=== PATIENT | female | born 1955 | race Caucasian/White ===

== ENCOUNTER 2019-08-09 14:19 | Emergency (ER) | payer SELFPAY ==
--- NOTE | 2019-08-09 14:24 | ED.FEMALEGU ---
HPI - Female Genitourinary General Chief complaint: Urogenital-Female Stated complaint: bladder infection Time Seen by Provider: 08/09/19 14:36 Source: patient and RN notes reviewed Mode of arrival: ambulatory Limitations: no limitations History of Present Illness HPI Narrative: 64-year-old female presents with concern for dysuria, frequency, urgency, stress incontinence for approximately 1 week, reports bilateral low back ache started yesterday. She denies fever, malaise, abdominal pain, hematuria, abnormal vaginal discharge or bleeding. She reports history of urinary tract infections. MD elicited complaint: UTI Related Data Home Medications Medication Instructions Recorded Confirmed diltiazem HCl [DILT-XR] 180 mg PO DAILY 06/04/19 08/09/19 furosemide 40 mg PO DAILY 06/04/19 08/09/19 metoprolol tartrate 50 mg PO Q12H 06/04/19 08/09/19 warfarin 2.5 mg PO DAILY 06/04/19 08/09/19 Allergies Allergy/AdvReac Type Severity Reaction Status Date / Time No Known Allergies Allergy Verified 08/09/19 14:32 Review of Systems Review of Systems: Narrative: CONSTITUTIONAL: Denies malaise, chills, sweats, or fever. CARDIOVASCULAR: Denies chest pain, palpitations RESPIRATORY: Denies cough or dyspnea. GASTROINTESTINAL: Denies abdominal pain, nausea, vomiting, diarrhea GENITOURINARY: Reports dysuria, frequency, urgency. Denies abnormal vaginal discharge, abnormal vaginal bleeding, hematuria. MUSCULOSKELETAL: Reports bilateral low backache. Denies myalgia. NEUROLOGIC: Denies numbness, weakness. All systems reviewed & are unremarkable except as noted in HPI and below PMFSH Comments At time of signature, agree with nursing past medical, surgical, social and family history. There is no relevant family history pertinent to the presenting complaint Exam Narrative: Exam Narrative: GENERAL: Well-appearing, well-nourished, and in no acute distress. HEAD: Normocephalic. EYES: PERRLA, conjunctivae clear. NECK: Supple. No lymphadenopathy CHEST: Clear to auscultation. No respiratory distress. HEART: Regular rate and rhythm. No murmur heard. Normal peripheral pulses. ABDOMEN: Soft, nontender upon palpation, nondistended, normal active bowel sounds, no palpable or pulsatile masses, no guarding. No CVA tenderness SKIN: Warm, dry, no rash. NEURO: Alert and oriented x3. PSYCH: Normal mood and affect Course Course Emergency Course: Patient is aware of diagnosis, understands and agrees to treatment plan. Anticipatory guidance given. Patient agrees to follow-up as directed and is aware of reasons to seek care at the emergency department. Portions of this record may have been created with voice recognition software Vital Signs Vital signs: Vital Signs Temperature 98.8 F 08/09/19 14:28 Pulse Rate 76 08/09/19 14:28 Respiratory Rate 18 08/09/19 14:28 Blood Pressure 145/80 H 08/09/19 14:28 Pulse Oximetry 98 08/09/19 14:28 Temperature 98.8 F 08/09/19 14:28 Pulse Rate 76 08/09/19 14:28 Respiratory Rate 18 08/09/19 14:28 Blood Pressure 145/80 H 08/09/19 14:28 Pulse Oximetry 98 08/09/19 14:28 Reviewed. Patient has history of hypertension MDM - Female Genitourinary MDM Narrative Medical decision making narrative: Exam findings and UA show no acute concerns or changes; patient is non-toxic appearing and is in no distress. Patient is appropriate for outpatient treatment and follow-up. Differential Diagnosis Differential diagnosis: Likely urinary tract infection, bacterial vaginosis, vaginitis and cystitis Lab Data Labs: Urine Glucose Negative Reference Range: Negative Urine Bilirubin Negative Reference Range: Negative Urine Ketone Negative Reference Range: Negative Urine Specific Cl[place]son 1.015 Reference Range:1.001-1.035 Urine Blood Trace Reference Range: Negative * *
[2019-08-09 14:28] VITALS: BP 145/80; PULSE 76; RESP 18; TEMP 37.1; O2SAT 98
== END 2019-08-09 14:50 | disposition home or self-care (01) ==
PROVIDERS: Emergency Provider Nurse Practitioner
DX: N39.0 Urinary tract infection, site not specified (principal); I48.91 Unspecified atrial fibrillation
CPT/HCPCS: 81003; 87077; 87086; 87088; 87186; 99213; G0463

== ENCOUNTER 2020-01-15 12:47 | Emergency (ER) | payer MEDICAID, SELFPAY ==
[2020-01-15 13:05] VITALS: BP 144/88; PULSE 72; RESP 16; TEMP 36.7; O2SAT 99
--- NOTE | 2020-01-15 13:13 | ED.GENADULT ---
HPI - General Adult General Chief complaint: Urogenital-Female Stated complaint: UTI Time Seen by Provider: 01/15/20 13:13 Source: patient Mode of arrival: ambulatory Limitations: no limitations History of Present Illness HPI narrative: 64-year-old female patient presents to the [facility] with complaints of burning with urination, urgency and frequency and incontinence for the past 3 days. Denies any fever, low back pain, nausea, vomiting or diarrhea. Related Data Home Medications Medication Instructions Recorded Confirmed diltiazem HCl [DILT-XR] 180 mg PO DAILY 06/04/19 08/09/19 furosemide 40 mg PO DAILY 06/04/19 08/09/19 metoprolol tartrate 50 mg PO Q12H 06/04/19 08/09/19 warfarin 2.5 mg PO DAILY 06/04/19 08/09/19 Allergies Allergy/AdvReac Type Severity Reaction Status Date / Time No Known Allergies Allergy Verified 08/09/19 14:32 Review of Systems Review of Systems: Narrative: CONSTITUTIONAL: Denies fever, chills, or sweats. EYES: Denies visual changes, redness, or discharge. ENT: Denies rhinorrhea, congestion, sore throat, or otalgia. CARDIOVASCULAR: Denies chest pain, palpitations, or edema. RESPIRATORY: Denies cough or dyspnea. GASTROINTESTINAL: Denies abdominal pain, nausea, vomiting, or diarrhea. GENITOURINARY: Denies dysuria or hematuria. Positive pain with urination, urgency and frequency x3 days SKIN: Denies rash or itching. MUSCULOSKELETAL: Denies back pain, joint pain, or myalgia. NEUROLOGIC: Denies headache, numbness, or weakness. PSYCHIATRIC: Denies anxiety or depression. PMFSH Comments At the time of my signature I agree with nursing past medical history, surgical, social, and family history. There is no relevant family history pertinent to the presenting complaint. Exam Narrative: Exam Narrative: GENERAL: Well-appearing, well-nourished, and in no acute distress. HEAD: Normocephalic, atraumatic. EYES: PERRLA and EOMI. ENT: Nares clear, no rhinorrhea or epistaxis. Mucous membranes moist. NECK: Supple. No lymphadenopathy CHEST: Clear to auscultation. No respiratory distress. HEART: Regular rate and rhythm. No murmur heard. Normal peripheral pulses. ABDOMEN: Soft, nontender, nondistended, normal active bowel sounds. No CVA tenderness on percussion EXTREMITIES: Normal range of motion. No edema. SKIN: Warm, dry, no rash. NEURO: No focal deficits. Alert and oriented x3. Course Vital Signs Vital signs: Vital Signs Temperature 36.7 C 01/15/20 13:05 Pulse Rate 72 01/15/20 13:05 Respiratory Rate 16 01/15/20 13:05 Blood Pressure 144/88 H 01/15/20 13:05 Pulse Oximetry 99 01/15/20 13:05 Temperature 36.7 C 01/15/20 13:05 Pulse Rate 72 01/15/20 13:05 Respiratory Rate 16 01/15/20 13:05 Blood Pressure 144/88 H 01/15/20 13:05 Pulse Oximetry 99 01/15/20 13:05 Vital signs reviewed. The patient has been informed that they may have pre-hypertension or Hypertension based on a BP reading in the department. I recommend that the patient call the primary care provider listed on their discharge instructions or a physician of their choice this week to arrange follow up for further evaluation of possible pre-hypertension or Hypertension Medical Decision Making Differential Diagnosis Differential Diagnosis: Differential diagnosis: Uncomplicated lower UTI, uncomplicated UTI, pyelonephritis Discussed with patient that her urine dip really did not show much in regards to any evidence of a urinary tract infection however given her symptoms we will go ahead and start her on some antibiotics and sent her urine off for culture. Discussed with her that if her culture shows that she needs a different antibiotic and we will call her at that time. Patient verbalized understanding denies any other questions or concerns at this time. Vital Signs Vital Signs: Vital Signs Temperature 36.7 C 01/15/20 13:05 Pulse Rate 72 01/15/20 13:05 Respiratory Rate 16 01/15/20 13:05 Blood Pressur
== END 2020-01-15 13:25 | disposition home or self-care (01) ==
PROVIDERS: Emergency Provider Nurse Practitioner Family
DX: N30.00 Acute cystitis without hematuria (principal)
CPT/HCPCS: 81003; 87077; 87086; 87088; 87186; 99213; G0463

== ENCOUNTER 2020-08-07 13:40 | Emergency (ER) | payer OTHER, MEDICAID, SELFPAY ==
[2020-08-07 13:56] VITALS: BP 154/92; PULSE 107; RESP 20; TEMP 36.5; O2SAT 97
--- NOTE | 2020-08-07 14:31 | ED.FEMALEGU ---
HPI - Female Genitourinary General Chief complaint: Urogenital-Female Stated complaint: Urogenital-Female Time Seen by Provider: 08/07/20 14:32 Source: patient and RN notes reviewed Mode of arrival: ambulatory Limitations: no limitations History of Present Illness HPI Narrative: 65-year-old female who presents to [facility] with complaints of urinary incontinency which started on Friday and last all day. She states that it lasted all day long but stopped at about 5 this morning with her urine remaining cloudy and dark. Patient states that she got her 2nd COVID injection on Friday and then the urinary frequency and urgency started. Patient is concerned because of her history of urinary tract infections. Patient denies any burning or pain with urination, no nausea or vomiting or any abdominal or flank pain. Patient has history of Afib and is on Warfarin for anticoagulation, denies any blood in urine, patient does have some ankle and pretibial swelling of both legs, states that she does not take Lasix. She has appointment with new physician on the with Dr Barbour. Related Data Home Medications Medication Instructions Recorded Confirmed diltiazem HCl [DILT-XR] 180 mg PO DAILY 06/04/19 08/07/20 furosemide 40 mg PO DAILY 06/04/19 08/09/19 metoprolol tartrate 50 mg PO Q12H 06/04/19 08/09/19 warfarin 2.5 mg PO DAILY 06/04/19 08/07/20 Allergies Allergy/AdvReac Type Severity Reaction Status Date / Time No Known Allergies Allergy Verified 08/09/19 14:32 Review of Systems Review of Systems: Narrative: CONSTITUTIONAL: Denies fever, chills, or sweats. EYES: Denies visual changes, redness, or discharge. ENT: Denies rhinorrhea, congestion, sore throat, or otalgia. CARDIOVASCULAR: Denies chest pain, palpitations, or edema. RESPIRATORY: Denies cough or dyspnea. GASTROINTESTINAL: Denies abdominal pain, nausea, vomiting, or diarrhea. GENITOURINARY: Denies dysuria or hematuria.reports urinary incontinency, urinary frequency and urgency SKIN: Denies rash or itching. MUSCULOSKELETAL: Denies back pain, joint pain, or myalgia. NEUROLOGIC: Denies headache, numbness, or weakness. PSYCHIATRIC: Denies anxiety or depression. All systems reviewed & are unremarkable except as noted in HPI and below PMFSH Past Medical History Medical History (Updated 08/12/20 @ 13:20 by Loretta Warren NP) A-fib Asthma reports as child Fracture of right foot Hypertension Toes fractured Urinary tract infection Surgical History Surgical History (Updated 08/12/20 @ 13:12 by Loretta Warren NP) H/O section History of appendectomy History of hysterectomy History of tonsillectomy Hx of left knee surgery Family History Family History (Updated 08/12/20 @ 13:14 by Loretta Warren NP) Other No significant family history Social History Social History (Updated 08/12/20 @ 13:12 by Loretta Warren NP) Smoking status: Unknown if ever smoked Alcohol intake: never Substance use: never Gender identity (if verbalized by the patient): Male Comments At time of signature, agree with nursing past medical, surgical, social and family history. There is no relevant family history pertinent to the presenting complaint Exam Narrative: Exam Narrative: GENERAL: Well-appearing, well-nourished,obese and in no acute distress, unkept appearance HEAD: Normocephalic, atraumatic. EYES: PERRLA and EOMI. ENT: Nares clear, no rhinorrhea or epistaxis. Mucous membranes moist.TM's normal with good light reflex, no throat redness, exudates, or lesions NECK: Supple.no lymphadenopathy CHEST: Clear to auscultation. No respiratory distress.SAO2 97% on room air HEART: irregular rate and rhythm. No murmur heard. Normal peripheral pulses.1 + pretibial edema ABDOMEN: Soft, nontender, nondistended, normal active bowel sounds.no abdominal or flank pain EXTREMITIES: Normal range of motion.positive for pedal and pretibial edema, swelling to left knee has been se
== END 2020-08-07 15:02 | disposition home or self-care (01) ==
PROVIDERS: Emergency Provider Registered Nurse
DX: N30.90 Cystitis, unspecified without hematuria (principal); I48.91 Unspecified atrial fibrillation
CPT/HCPCS: 81003; 87086; 99213; G0463

== ENCOUNTER 2021-09-17 15:30 | Emergency (ER) | payer OTHER, MEDICAID, SELFPAY ==
--- NOTE | 2021-09-17 15:36 | ED.URI ---
HPI - URI/Sore Throat General Chief Complaint: Upper Respiratory Infection Stated Complaint: sinus issues Time Seen by Provider: 09/17/21 15:36 Source: patient and RN notes reviewed History of Present Illness HPI Narrative: Patient is 66-year-old female who presents the urgent care with her daughter with complaints of sinus congestion for the last 2 weeks. Patient states she has had some low-grade fevers and she has been taking Tylenol and Benadryl. Patient states that it started after she used some disinfectant spray throughout her house. Patient states she is been unable to get the nasal congestion under control. Also reports a mild cough. Denies of any ill contacts. No other acute complaints. No acute distress noted. Patient aware of the plan of care. Some parts of this dictation were generated by voice recognition software and may contain typographical and/or grammatical inaccuracies. Related Data Home Medications Medication Instructions Recorded Confirmed diltiazem HCl [DILT-XR] 180 mg PO DAILY 06/04/19 09/17/21 warfarin 2.5 mg PO DAILY 06/04/19 09/17/21 Allergies Allergy/AdvReac Type Severity Reaction Status Date / Time No Known Allergies Allergy Verified 08/09/19 14:32 Review of Systems Review of Systems: CONSTITUTIONAL: Denies fever, chills, or sweats. EYES: Denies visual changes, redness, or discharge. ENT: Reports of nasal congestion, sinus pressure, moderate postnasal drainage CARDIOVASCULAR: Denies chest pain, palpitations, or edema. RESPIRATORY: Reports of cough without dyspnea GASTROINTESTINAL: Denies abdominal pain, nausea, vomiting, or diarrhea. GENITOURINARY: Denies dysuria or hematuria. SKIN: Denies rash or itching. MUSCULOSKELETAL: Denies back pain, joint pain, or myalgia. NEUROLOGIC: Denies headache, numbness, or weakness. All other systems reviewed are negative, except as documented in HPI. [facility] Past Medical History Medical History (Updated 09/17/21 @ 16:15 by ANA MARIA Magana) A-fib Asthma reports as child Fracture of right foot Hypertension Toes fractured Urinary tract infection Surgical History Surgical History (Updated 08/12/20 @ 13:12 by Loretta Warren NP) H/O section History of appendectomy History of hysterectomy History of tonsillectomy Hx of left knee surgery Family History Family History (Updated 08/12/20 @ 13:15 by Loretta Warren NP) Other No significant family history Social History Social History (Updated 08/12/20 @ 13:12 by Loretta Warren NP) Smoking status: Unknown if ever smoked Alcohol intake: never Substance use: never Gender identity (if verbalized by the patient): Male Comments At the time of my signature, I reviewed and agree with the nursing past medical, surgical, social, and family history. There is no relevant family history pertinent to the patient complaint. Exam Narrative: GENERAL: This is a well-nourished, well-developed patient, in no apparent distress. HEAD: normocephalic, atraumatic. EYES: PERRL. Sclera clear/white. Vision is grossly intact. EARS: External ears normal, auditory canals clear and without drainage, TMs normal without perforation. Hearing grossly intact. NOSE: External nose normal with no obvious nasal discharge. Bilateral erythemic nares with clear to yellow rhinorrhea THROAT: Mucous membranes moist, posterior pharynx clear. Moderate postnasal drainage NECK: Neck supple, non-tender without lymphadenopathy CARDIOVASCULAR: Regular rate and rhythm without murmurs, gallops, or rubs. RESPIRATORY: Clear to auscultation. Slightly diminished bibasilar. No wheezes, rales, or rhonchi. NEURO: awake, alert, and oriented to person, place and time. There were no obvious focal neurologic abnormalities. EXTREMITIES: Chronic bilateral lower extremity edema Course Course Level of Care: Express Care Visit Vital Signs Vital signs: Vital Signs Temperature 100.0 F H 09/17/21 15:40 Puls
[2021-09-17 15:40] VITALS: BP 147/92; PULSE 116; RESP 20; TEMP 37.8; O2SAT 95
[2021-09-17 15:50] VITALS: BP 147/92; PULSE 116; RESP 20; TEMP 37.8; O2SAT 95
== END 2021-09-17 16:19 | disposition home or self-care (01) ==
PROVIDERS: Emergency Provider Nurse Practitioner Family
DX: J32.9 Chronic sinusitis, unspecified (principal); B96.89 Other specified bacterial agents as the cause of diseases classified elsewhere; I48.91 Unspecified atrial fibrillation; J45.909 Unspecified asthma, uncomplicated; Z79.01 Long term (current) use of anticoagulants
CPT/HCPCS: 99213; G0463

== ENCOUNTER 2023-12-24 10:18 | Emergency (ER) | payer MEDICARE, MEDICAID, SELFPAY ==
[2023-12-24 10:38] VITALS: BP 136/92; PULSE 100; RESP 16; TEMP 36.8; O2SAT 98
--- NOTE | 2023-12-24 11:12 | ED.DENTAL ---
HPI - Dental/Oral General Chief complaint: Dental/Oral Stated complaint: Tooth infection Time Seen by Provider: 12/24/23 10:50 Source: patient, RN notes reviewed and old records reviewed Mode of arrival: ambulatory Limitations: no limitations History of Present Illness HPI Narrative: 68 year old female presents to [facility] care with complaints of dental pain to the right bottom molar #29 which is loose with noted caries for the past 3 weeks duration.Patient has several missing teeth noted and some caries of other teeth. Patient has no facial swelling of right side of face some redness of gums around #29 tooth. Patient denies any fevers chills or sweats has not taken any OTC medications for her pain. Patient is on daily blood thinner. MD Complaint: tooth pain Location: Tooth # (29) Onset (ago): week(s) (3) Duration: constant Severity scale (1-10): 10 Treatment prior to arrival: none Related Data Home Medications Medication Instructions Recorded Confirmed diltiazem HCl 180 mg 180 mg PO DAILY 06/04/19 09/17/21 capsule,extended release 24 hr, controlled (DILT-XR) warfarin 2.5 mg tablet 2.5 mg PO DAILY 06/04/19 09/17/21 Allergies Allergy/AdvReac Type Severity Reaction Status Date / Time No Known Allergies Allergy Verified 08/09/19 14:32 Review of Systems Review of Systems: CONSTITUTIONAL: Denies fever, chills, or sweats. ENT: Denies rhinorrhea, congestion, sore throat, or otalgia. Reports dental pain to number 29 tooth with tooth loose and noted caries CARDIOVASCULAR: Denies chest pain, palpitations, or edema. RESPIRATORY: Denies cough or dyspnea. SKIN: Denies rash or itching. MUSCULOSKELETAL: Denies myalgia. NEUROLOGIC: Denies headache All systems reviewed & are unremarkable except as noted in HPI and below PMFSH Past Medical History Medical History A-fib Asthma reports as child Fracture of right foot Hypertension Toes fractured Urinary tract infection Surgical History Surgical History H/O section History of appendectomy History of hysterectomy History of tonsillectomy Hx of left knee surgery Family History Family History Other No significant family history Social History Social History Smoking status: Unknown if ever smoked Alcohol intake: never Substance use: never Gender identity (if verbalized by the patient): Male Comments At time of signature, agree with nursing past medical, surgical, social and family history. There is no relevant family history pertinent to the presenting complaint Exam Narrative: GENERAL: Well-appearing, well-nourished,obese, and in no acute distress. HEAD: Normocephalic, atraumatic. EYES: PERRLA and EOMI. ENT: Nares clear, no rhinorrhea or epistaxis. Mucous membranes moist. Missing teeth, broken teeth, caries with pain to #29 tooth with some redness of gum and tooth is loose, No trismus or any Arnold angina NECK: Supple.No lymphadenopathy CHEST: Clear to auscultation. No respiratory distress.SAO2 98% on room air HEART: Regular rate and rhythm. No murmur heard. Normal peripheral pulses. SKIN: Warm, dry, no rash. NEURO: No focal deficits. Alert and oriented x3. Course Course Emergency Course: Patient is aware of diagnosis, understands and agrees to treatment plan. Anticipatory guidance given. Patient agrees to follow-up as directed and is aware of reasons to seek care at the emergency department. Portions of this record may have been created with voice recognition software Level of Care: Express Care Visit Vital Signs Vital signs: Vital Signs Temperature 36.8 C 12/24/23 10:38 Pulse Rate 100 12/24/23 10:38 Respiratory Rate 16 12/24/23 10:38 Blood Pressure 136/92 H 12/24/23 10:38 Pulse Oximetry
== END 2023-12-24 11:20 | disposition home or self-care (01) ==
PROVIDERS: Emergency Provider Registered Nurse; PCP Hospitalist
DX: K04.7 Periapical abscess without sinus (principal); K08.89 Other specified disorders of teeth and supporting structures; I48.91 Unspecified atrial fibrillation; I10 Essential (primary) hypertension; Z79.01 Long term (current) use of anticoagulants
CPT/HCPCS: 99213; G0463

== ENCOUNTER 2024-04-03 09:48 | Emergency (ER) | payer MEDICARE, MEDICAID, SELFPAY ==
[2024-04-03 09:53] VITALS: BP 158/91; PULSE 101; RESP 16; TEMP 36.4; O2SAT 100
--- NOTE | 2024-04-03 10:10 | ED.FEMALEGU ---
HPI - Female Genitourinary General Chief complaint: Urogenital-Female Stated complaint: Urinary Problem/Right Thumb Pain History of Present Illness HPI Narrative: Patient presents with urinary frequency occasional incontinence and burning with urination for the past 3 days P. patient denies any flank pain no gross hematuria no pelvic pain no abdominal pain no concern for STDs. Patient also has a tender area to her right thumb no drainage no streaking. Related Data Home Medications Medication Instructions Recorded Confirmed diltiazem HCl 180 mg 180 mg PO DAILY 06/04/19 09/17/21 capsule,extended release 24 hr, controlled (DILT-XR) warfarin 2.5 mg tablet 2.5 mg PO DAILY 06/04/19 09/17/21 Allergies Allergy/AdvReac Type Severity Reaction Status Date / Time No Known Allergies Allergy Verified 04/03/24 10:05 Review of Systems Review of Systems: CONSTITUTIONAL: Denies chills, or sweats. Reports fever and generalized body aches EYES: Denies visual changes, redness, or discharge. ENT: Denies otalgia. Reports nasal congestion runny nose and sore throat CARDIOVASCULAR: Denies chest pain, palpitations, or edema. RESPIRATORY: Denies dyspnea. Reports occasional cough GASTROINTESTINAL: Denies abdominal pain, nausea, vomiting, or diarrhea. GENITOURINARY: Denies dysuria or hematuria. SKIN: Denies rash or itching. MUSCULOSKELETAL: Denies back pain, joint pain, or myalgia. Reports generalized body aches NEUROLOGIC: Denies headache, numbness, or weakness. PSYCHIATRIC: Denies anxiety or depression. [facility], [facility] Past Medical History Medical History A-fib Asthma reports as child Fracture of right foot Hypertension Toes fractured Urinary tract infection Surgical History Surgical History H/O section History of appendectomy History of hysterectomy History of tonsillectomy Hx of left knee surgery Family History Family History Other No significant family history Social History Social History Smoking status: Unknown if ever smoked Alcohol intake: never Substance use: never Gender identity (if verbalized by the patient): Male Comments At time of signature, agree with nursing past medical, surgical, social and family history. There is no relevant family history pertinent to the presenting complaint Exam Narrative: The patient is a well-developed, well-nourished in no acute distress. SKIN: Skin is warm and dry without erythema, swelling or exudate. There is good turgor. No tenting. HEAD: Atraumatic. Normocephalic. No temporal or scalp tenderness. EYES: Moist and bright. Sclera and conjunctivae normal. No discharge. PERRLA. Extraocular motions intact. Gross visual acuity intact. EARS: Pinna is normal shape and contour. Clear external auditory canals. TM pearly june with good cone of light, no erythema or suppuration. Bilateral cerumen noted no gross hearing deficit. NOSE: pink, moist mucosa with good air movement. Clear rhinorrhea without nasal flaring. Septum midline. Mouth: moist mucous membranes. THROAT; mild erythema noted to posterior oropharynx with moderate postnasal drainage. Without exudate or ulceration.. Uvula midline. Normal movement of soft palate. NECK: Supple and nontender with full range of motion without discomfort. No meningeal signs. LUNGS: Equal and bilateral breath sounds without wheezes, rales or rhonchi. CHEST: The chest wall is without retractions or use of accessory muscles. HEART: Has a regular rate and rhythm without murmur, gallops, click or rub. ABDOMEN: Soft, nontender with positive active bowel sounds. No rebound tenderness. EXTREMITIES: Without cyanosis, clubbing or edema. Equal 2+ distal pulses and 2 second capillary refill noted. Paronychia SWELLING AND REDNESS AND FLUCTUANCE CONSISTENT WITH PARONYCHIA. NORMAL CAP REFILL. NORMAL SENSATION OF DISTAL FINGER. NORMAL 2 POINT DISCRIMINATION. NORMAL MOVEMENT OF FINGER AT PIP, DIP, MCP. NORMAL HAND EXAM. NO STREAKING OR REDNESS INTO HAND. NEUROLOGIC: alert, active, . The patient moves all extremities with normal muscle strength. Normal muscle tone is noted. Normal coordination is noted. NO focal neurological findings noted. Course Course Level of Care: Express Care Visit Vital Signs Vital signs: Vital Signs Temperature 36.4 C L 04/03/24 09:53 Pulse Rate 101 H 04/03/24 09:53 Respiratory Rate 16 04/03/24 09:53 Blood Pressure 158/91 H 04/03/24 09:53 Pulse Oximetry 100 04/03/24 09:53 Oxygen Delivery Room Air 04/03/24 09:53 Temperature 36.4 C L 04/03/24 09:53 Pulse Rate 101 H 04/03/24 09:53 Respiratory Rate 16 04/03/24 09:53 Blood Pressure 158/91 H 04/03/24 09:53 Pulse Oximetry 100 04/03/24 09:53 Oxygen Delivery Room Air 04/03/24 09:53 Please MERI schedule a followup visit with your personal physician for further evaluation and treatment. Including recheck and discussion of your blood pressure. If your symptoms persist, change or worsen significantly before you can contact your personal physician then please, without delay, go to the emergency department for further evaluation Discharge Plan Discharge Clinical Impression: Dysuria, Paronychia of finger of right hand Patient Disposition: Home, Self-Care Condition: Stable Instructions: Antibiotic Form Additional Instructions: Increase fluids especially cranberry juice and water coumadin Antibiotics may increase or decrease the effectiveness of your blood thinner. This may place you at a higher risk for bleeding and/or blood clot. Please notify your PCP immediately of antibiotic use and schedule an INR TODAY if last INR is unknown PRIOR to taking antibiotic. This should just be a nurse/lab visit. Please obtain follow-up INR within a few days after beginning antibiotic, and every few days - week while on antibiotic as directed by your PCP. PCP will adjust levels accordingly Avoid caffeine and carbonated beverages Antibiotic as directed Medicine as directed--cautioned it will cause your urine to be bright orange Tylenol/ibuprofen for pain or fever Follow-up with her primary care provider if further problems or concerns Recheck if you have fever over 101, nausea and vomiting -If you have any worsening of symptoms or any other concerns please go to the ED immediately. Prescriptions: New cephalexin 500 mg capsule 500 mg PO Q12H Qty: 14 0RF No Action warfarin 2.5 mg Tablet 2.5 mg PO DAILY diltiazem HCl [DILT-XR] 180 mg Capsule,Ext.Rel 24h Degradable 180 mg PO DAILY chlorhexidine gluconate [Peridex] 0.12 % mouthwash 15 ml mucous membrane BID Qty: 473 0RF fluticasone propionate [Flonase Allergy Relief] 50 mcg/actuation spray,suspension 2 spray NASAL DAILY Qty: 15.8 0RF Rx Instructions: administer into each nostril Follow-up/Referrals: Angle,MD Brian [Primary Care Provider] -
[2024-04-03 10:21] LABS: EDUAAPPEAR Clear; EDUABILI Negative (Negative); EDUABLOOD Trace (Negative); EDUACOLOR1 Yellow; EDUAGLUCOSE Negative (Negative); EDUAKETONE Negative (Negative); EDUALEUKO Negative (Negative); EDUANITRATE Negative (Negative); EDUAPROTEIN Trace (Negative); EDUASPGRAVITY 1.025; EDUAUROBILI 0.2
== END 2024-04-03 10:23 | disposition home or self-care (01) ==
PROVIDERS: Emergency Provider Nurse Practitioner Family; PCP Hospitalist
DX: R30.0 Dysuria (principal); L03.011 Cellulitis of right finger; I48.91 Unspecified atrial fibrillation; I10 Essential (primary) hypertension
CPT/HCPCS: 81003; 87077; 87086; 87186; 99213; G0463

== ENCOUNTER 2024-06-15 15:47 | Emergency (ER) | payer MEDICARE, MEDICAID, SELFPAY ==
[2024-06-15 15:50] VITALS: BP 135/93; PULSE 88; RESP 20; TEMP 37.4; O2SAT 99
--- OUTSIDE RECORDS SUMMARY | 2024-06-15 15:50 | XMS_ITS | Clinical Summary ---
Author Organization [facility] Facility Address [address] [place] [id number] Care Team Providers Care Medical Underwriter Name Role Phone Brian Barbour MD Primary Care Provider [phone] Allergies Active Allergy Reactions Criticality Noted Date Comments Lawrence Oil Hives 01/07/2022 Medications acetaminophen (TYLENOL) 500 MG tablet Take by mouth every 6 (six) hours if needed for mild pain Active warfarin (COUMADIN) 2 MG tablet Take 2 mg by mouth Take 1 tablet by mouth Mon,Wed, and Fri. Take 2 tablets by mouth Tue, Thur, Sat and Sun. Active metoprolol tartrate 25 MG tablet Take 25 mg by mouth in the morning and 25 mg in the evening. Active dilTIAZem XR (DILACOR XR) 180 MG 24 hr capsule Take 180 mg by mouth 1 (one) time each day Active Family History Medical History Relation Comments Cancer Brother Diabetes Brother COPD Daughter Diabetes Daughter Heart disease Daughter Cancer Father Diabetes Father Heart disease Father Hypertension Father Stroke Mother Kidney cancer Son Relation Status Comments Brother Daughter Alive Father Mother Son Alive Social History Tobacco Use Types Packs/Day Years Used Date Smoking Tobacco: Never Smokeless Tobacco: Never Alcohol Use Standard Drinks/Week Comments Never 0 (1 standard drink = 0.6 oz pur e alcohol) Comments Unknown Sex and Gender Information Value Date Recorded Sex Assigned at Not on file Legal Sex Female 11:08 AM EDT Gender Identity Not on file Sexual Orientation Not on file Plan of Treatment Health Maintenance Due Date Last Done Comments Breast Cancer Screening 1955 Colorectal Cancer Screening: Annual FOBT 2004 Colorectal Cancer Screening: Colonoscopy 2004 Colorectal Cancer Screening: Sigmoidoscopy 2004 Pneumococcal Vaccine: 65+ Ye ars (1 of 1 - PCV) 2020 Influenza Vaccine (#1) 2024 Hepatitis B Vaccine Aged Out No longe r eligible based on patient's age to complete this topic Care Teams Medical Underwriter Relationship Specialty Start Date End Date Brian Barbour MD [address] [place] [address] PCP - General Family Medicine 01/07/22
--- OUTSIDE RECORDS SUMMARY | 2024-06-15 15:50 | XMS_ITS | Clinical Summary ---
Author Organization [facility] Address [address] [place] [address] Phone Care Team Providers Care Piano And Organ Refinisher Name Role Phone Brian Barbour MD Primary Care Provider [phone] Allergies Active Allergy Reactions Criticality Noted Date Comments Dust Mite Extract Other (see Comments) 06/10/19 24 COUGHING Other-Food Allergen (Not Fou nd In Search) Hives 06/10/2023 ORANGES Medications acetaminophen (TYLENOL) 500 MG Tablet Take 500 mg by mouth as needed. Active dilTIAZem (CARDIZEM CD) 180 MG CAPSULE SR 24 HR Take 1 Cap by mouth daily. 30 Cap 3 0 Active Additional Information Patient taking differently:180 mg OralEVERY MORNING, Reported on 06/10/2023 warfarin (COUMADIN) 2 MG Tablet Take 1 Tab by mouth daily. 30 Tab 3 0 Active Additional Information Patient taking differently: 4 mgOralWEEKLY, Takes 4 mg only one night a week on Friday (takes 2 mg dosage every night with the exception of Friday) reported on 08/11/23, Reported on 08/11/2023 warfarin (COUMADIN) 1 MG Tablet Take 1 Tab by mouth daily. 90 Tab 3 0 Active Additional Information Patient taking differently: 2 mgOralNIGHTLY, Takes every night with the exception of Friday, Reported on 08/11/2023 HYDROcodone-moody taminophen (NORCO) 5-325 MG TabletIndicatio ns:Infected dental caries Take 1 Tablet by mouth every 8 hours as needed for Moderate or more severe pain. 12 Tablet Active Additional Information Patient not taking.Reported on 06/10/2023 Active Problems Problem Noted Date Diagnosed Date Chronic atrial fibrillation 04/28/2020 Essential hypertension, benign 04/28/2020 Anticoagulant long-term use 04/28/2020 Morbid obesity 09/29/2017 Chronic venous stasis dermatitis of both lower e xtremities 09/29/2017 Obstructive sleep apnea 09/29/2017 Resolved Problems Problem Noted Date Diagnosed Date Resolved Date Atrial fibrillation with RVR 09/29/2017 04/28/2020 Immunizations Immunization Administration Dates Next Due Covid-19, Mrna, Lnp-s, Pf, 30 Mcg/0.3 Ml Dose (Loida mackenzie) 08/05/2020,07/13/2020 Influenza Vaccine, Quadrivalent, PF 03/12/2020,1 Family History Medical History Relation Name Comments Diabetes Father Cancer Mother UTERUS OR OVARI ES Stroke Mother Relation Name Status Comments Father Mother Social History Tobacco Use Types Packs/Day Years Used Date Smoking Tobacco: Never Smokeless Tobacco: Never Tobacco Cessation:Counseling Given: Not Answered Alcohol Use Standard Drinks/Week Comments No 0 (1 standard drink = 0.6 oz pur e alcohol) PHQ-2 Answer Date Recorded Total Score - Questions 1-9 0 04/11 Comments No Sex and Gender Information Value Date Recorded Sex Assigned at Not on file Legal Sex Female 8:44 PM CDT Gender Identity Not on file Sexual Orientation Not on file Last Filed Vital Signs Vital Sign Reading Time Taken Comments Blood Pressure 158/101 08/18/2023 8:51 AM CDT Pulse 80 08/18/2023 8:51 AM CDT Temperature 35.8 ??C (96.4 ??F) 08/18/2023 8:51 AM CD T Respiratory Rate 16 08/18/2023 8:51 AM CDT Oxygen Saturation 99% 08/18/2023 8:51 AM CDT Inhaled Oxygen Concentration - - Weight 133.8 kg (295 lb) 08/11/2023 9:00 AM CDT Height 175.3 cm (5' 9 ) 08/11/2023 9:00 AM CDT Body Mass Index 43.56 08/11/2023 9:00 AM CDT Plan of Treatment Health Maintenance Due Date Last Done Comments Hepatitis C Virus (HCV) Screening 1955 Colonoscopy 2000 Colorectal Cancer Screening 2000 Cologuard 2005 Immunochemical Fecal Occult Blood 2005 Zoster Immunization (1 of 2) 2005 Respiratory Syncytial Virus (RSV) Immunization (Adult) (1 - Risk 60-74 years 1-dose series) 2015 DEXA Bone Density 09/22/2022 09/22/2020 Mammogram 06/20/2023 06/20/2021, 10/10, 09/22/2020 Influenza Immunization (#1) 2024 12/09/2021, 03/23/2021, 03/12/2020, Additional history exists SARS-COV-2 Immunization ( season) 2024 08/05/2020, 07/13/2020 DTaP/Tdap/Td Immunization Discontinued 08/22/2020 TdaP Immunization Completed 08/22/2020 Pneumococcal Immunization (50+ years) Completed 12/27/2021, 08/22/2020 Pneumococcal Immunization Combined Discontinued 12/27/2021, 08/22/2020 Hepatitis B Immunization Aged Out No longer eligible based on patient's age to complete this topic Meningococcal Immunization (ACWY) Aged Out No longer eligible based on patient's age to complete this topic Rotavirus Immunization Aged Out No lo nger eligible based on patient's age to complete this topic Medical Devices Implanted Type Area Gas Station Operator Device Identifier Shelf Expiration Date Model / Serial / Lot Technis 1-Piece Iol With Simplicity Delivery System Implanted:Qty: 1 on 08/18/2023 by Jnaie Wolf MD PhD at [facility] Right: Eye 12/08/2023 [id number] / [id number] / 12/08/23 Additional Health Concerns Infection Onset Date Last Indicated MRSA 09/27/2017 09/27/2017 Insurance MEDICAID [place] MEDICARE C [employer] Advance Directives * Full Code (Latest Code Status on File) Date Activated Date Inactivated Comments 09/27/2017 7:12 PM 09/29/2017 9:10 PM CPR-Full Keegan atment: FULL ARREST: Attempt Resuscitation/CPR wit intubation and mechanical ventilation. PRE-ARREST: Use entire range of life support measures to stabilize the patient. Care Teams Piano And Organ Refinisher Relationship Specialty Start Date End Date Brian Barbour MD [address] [place] [address] PCP - General Family Medicine 03/18/22
--- OUTSIDE RECORDS SUMMARY | 2024-06-15 15:50 | XMS_ITS | Encounter Summary ---
Author Organization [facility] Address [address] [place] [address] Care Team Providers Care Green Meat Grader Name Role Phone Bean Paz MD Primary Care Provider [phone] Reason for Visit * Reason Onset Date Comments Medication Refill 02/26/2020 Encounter Details Date Type Department Care Team (Late st Contact Info) Description 02/26/2020 Refill [facility] - [address] [place] [address] Bean Paz MD [address] [facility] [address] [place] [address] Atrial fibrillation with RVR (CMS/HCC) Social History Tobacco Use Types Packs/Day Years Used Date Smoking Tobacco: Never Smokeless Tobacco: Never Alcohol Use Standard Drinks/Week Comments No 0 (1 standard drink = 0.6 oz pur e alcohol) Comments Unknown Sex and Gender Information Value Date Recorded Sex Assigned at Not on file Legal Sex Female 7:06 PM CDT Gender Identity Not on file Sexual Orientation Not on file documented as of this encounter Miscellaneous Notes * Telephone Encounter - Nga Read - 02/28/2020 2:52 PM CDT NINOSKA 05/14/19 Sent pt renetta documented in this encounter Plan of Treatment Not on file documented as of this encounter Visit Diagnoses Diagnosis Atrial fibrillation with RVR (CMS/HCC) Atrial fibrillation documented in this encounter Additional Health Concerns Infection Onset Date Last Indicated Resolved Time MRSA Comment:Resolved per Type and Duration of Precautions Recommended for Selected Infections and Conditions document 2023 update 10/23/2017 10/23/2017 01/27/20 24 11:21 AM CDT documented as of this encounter Care Teams Green Meat Grader Relationship Specialty Start Date End Date Bean Paz MD PCP - General Internal Medicine 10/14/17 documented as of this encounter
--- OUTSIDE RECORDS SUMMARY | 2024-06-15 15:51 | XMS_ITS | Clinical Summary ---
Author Organization [facility] Address [address] [place] [address] Care Team Providers Care Job Captain Name Role Phone DamionAlexander craft MD Unavailable Bean Paz MD Unavailable [phone] Berry Gabriel MD Unavailable [phone] Brian Crenshaw MD Primary Care Provider [phone] Allergies Active Allergy Reactions Criticality Noted Date Comments Mayonnaise Hives Medium 05/04/2019 Limestone Juice Hives Medium 05/04/2019 Limestone Oil Hives Medium 01/07/2022 Medications acetaminophen (TYLENOL) 500 mg tablet Take 1 tablet (500 mg total) by mouth every 6 (six) hours as needed Active dilTIAZem XR (dilTIAZem CD) 180 mg 24 hr capsule Take 1 capsule (180 mg total) by mouth daily 90 capsule 3 4 Active warfarin (COUMADIN) 2 mg tabletIndications:Ch ronic anticoagulation Take 2 tablets (4 mg total) by mouth daily 60 tablet 11 4 12/05/19 25 Active Active Problems Problem Noted Date Diagnosed Date PAD (peripheral artery disease) 01/24/2023 Skin tags, multiple acquired 03/23/2021 Assessment & Plan (03/23/2021 1:48 PM RECYCLABLE MATERIALS COLLECTOR): Multiple skin tags, gluteal, but not anorectal, likely aquired from fiction; refer to derm for removal given number, location and size. Bilateral primary osteoarthritis of knee 021 Assessment & Plan (01/01/2023 1:21 PM CDT): Not well controlled; patient reports worsening right knee pain; swelling around right knee, limits patient's ability to walk and have activity Patient following up with orthopedics for further evaluation Assessment & Plan (09/06/2020 12:52 PM CDT): Limits patient's ability to wlk due to pain; will continue to encourage weight loss in order to reduce pain and stress on jonit. Essential hypertension, benign 04/28/2020 Assessment & Plan (01/05/2024 8:41 AM CDT): Chronic, stable; denies chest pain BP at visit; 122/80 Continue Diltiazem 180 mg daily Assessment & Plan (01/01/2023 1:21 PM CDT): Stable, well controlled; BP at goal; no orthostatics chest pain or pressure Continue diltiazem 180 mg daily Assessment & Plan (12/27/2021 10:20 AM CDT): Stable, mildly elevated diastolic pressure today; patient reports stress regarding physician visits Continue metoprolol 25 mg b.i.d., diltiazem 180 mg daily Assessment & Plan (03/23/2021 1:49 PM RECYCLABLE MATERIALS COLLECTOR): Stable, well controlled, continue metoprolol 25 mg BID fo blood pressure and rate control Assessment & Plan (09/06/2020 12:53 PM CDT): Stable, at target, will continue to monitor Stage 3 chronic kidney disease 01/27/2020 Assessment & Plan (01/05/2024 8:39 AM CDT): Not well controlled Last eGFR was 34; did not complete labs prior to appt Avoid nephrotoxic medications Assessment & Plan (01/01/2023 1:19 PM CDT): Not well controlled, last EGFR was 40, consistent with stage IIIB kidney disease; continue to trend, checking GFR at least every 6 months Avoid nephrotoxic medications Assessment & Plan (12/27/2021 10:22 AM CDT): Patient's GFR has been stable for the past 1-2 years No other signs or symptoms of chronic kidney disease Will refer to nephrology for further evaluation and management as needed avoid nephrotoxic medications and continue to control blood pressure Assessment & Plan (03/30/2021 4:05 PM RECYCLABLE MATERIALS COLLECTOR): Stable, well controlled; GFR is stable around 37-38 will continue to monitor with regular checks of CMP as well as bone Metabolic panel continue with vitamin-D 21027 units weekly Assessment & Plan (09/06/2020 12:55 PM CDT): Stable, will coninue to monitor, control blood pressure Anemia of chronic disease 01/27/2020 Assessment & Plan (03/30/2021 4:04 PM RECYCLABLE MATERIALS COLLECTOR): resolving bylast CBC, may not be due to chronic kidney disease; will continue to monitor with regular CBCs Assessment & Plan (08/22/2020 10:51 AM CDT): Recheck CBC today, continue to monitor Chronic stasis dermatitis 05/03/2019 Assessment & Plan (01/01/2023 1:18 PM CDT): Continues to have significant dermatitis, with thickening of skin; consistent with elephantiasis nostras verruciformis; Patient also has breakdown of anterior right ankle; likely due to prior knee brace Concern for infection, start Augmentin plus doxycycline; referral to wound care clinic for management of extensive ulceration of superficial skin Cellulitis of lower extremity 05/03/2019 Assessment & Plan (05/03/2019 6:19 PM RECYCLABLE MATERIALS COLLECTOR): Likely caused by break in skin from chronic stasis dermatitis. Management per critical care. Atrial fibrillation with RVR (CMS/[facility]) 9 Assessment & Plan (01/05/2024 8:38 AM CDT): Chronic, stable, rate controlled Continue Diltiazem 180 mg daily, Warfarin 4 mg daily Continue to follow with INR checks Assessment & Plan (01/01/2023 1:19 PM CDT): Stable, rate controlled, irregular rhythm today Continue diltiazem 180 mg daily; warfarin 4 mg daily; patient to follow-up with INR Assessment & Plan (12/27/2021 10:21 AM CDT): Stable, well controlled; rate controlled, INR at target with no significant bruising or bleeding on warfarin Continue diltiazem 180 mg daily, metoprolol 25 mg b.i.d., warfarin 1 tablet 3 times per week, 2 tablets 4 times per week Assessment & Plan (03/23/2021 1:49 PM RECYCLABLE MATERIALS COLLECTOR): Stable, well controlled, rate controlled No significant bleeding or bruising; conitnue on warfarin fo anticoagulation Assessment & Plan (09/06/2020 12:51 PM CDT): Stable, well controlled -restart metoprolol at 25 mg to reduce side effects but allow for rate control -continue Warfarin, will follow INR and adjust dose as needed Assessment & Plan (05/03/2019 6:22 PM RECYCLABLE MATERIALS COLLECTOR): On warfarin at home. Amiodarone drip started, management per critical care. Obstructive sleep apnea 09/29/2017 Assessment & Plan (01/01/2023 1:21 PM CDT): Stable, not well controlled, no use CPAP; no current devices Patient reports she wakes multiple times at night to go to the bathroom Lymphedema Assessment & Plan (01/01/2023 1:20 PM CDT): Not well controlled; significant lymphedema withelephantiasis nostras verruciformis No use of compression; no current engagement with lymphedema clinic Will work to address current skin breakdown, refer to lymphedema clinic once improved Assessment & Plan (12/27/2021 10:22 AM CDT): Continues to have significant lymphedema; patient wears compression stockings to help reduce overall swelling Non pitting edema noted on exam today Assessment & Plan (03/23/2021 1:51 PM RECYCLABLE MATERIALS COLLECTOR): Not well contolled; continues to have edema in all limbs; encourage weight loss, exercise; no role for diuetics given lymphedema. Assessment & Plan (09/06/2020 12:54 PM CDT): Not well controlled, will continue to monitor, work on weight loss as may be secondary to excess weight Chronic anticoagulation Assessment & Plan (01/01/2023 1:20 PM CDT): Not well controlled, INR elevated today; will get blood draw and recheck and adjust warfarin as needed Class 3 severe obesity due t o excess calories with serious comorbidity and body mass index (BMI) of 45.0 to 49.9 in adult Assessment & Plan (01/05/2024 8:41 AM CDT): Chronic, weight increase since April Encouraged to make healthy dietary choices, portion control and increase activity level Assessment & Plan (01/01/2023 1:21 PM CDT): Stable, improving; patient has lost 20 lb since October; working on decreasing caloric intake through minimizing portion sizes, drinking more water Encouraged continued work towards weight loss Assessment & Plan (12/27/2021 10:21 AM CDT): Improving, patient has weight loss since last visit, down approximately 15 lb Patient reports she is drinking water, has increased activity, exercising nearly daily by caring for 1 to 2-year-old grandchildren Assessment & Plan (03/23/2021 1:51 PM RECYCLABLE MATERIALS COLLECTOR): Not well contolled; had recent weight gain due to stress eating from loss of brother -encourage portion control and return to appropriate diet Assessment & Plan (09/06/2020 12:53 PM CDT): Has been making changes in diet, granddaughter helps with meals -limited ability to exercise due to pain and history of hypoxia. Resolved Problems Problem Noted Date Diagnosed Date Resolved Date Lateral epicondylitis of right elbow 03/23/2021 01/05/2024 Assessment & Plan (03/23/2021 1:47 PM RECYCLABLE MATERIALS COLLECTOR): New onset pain, likely epicondylitis, will give home exercises, if no impovement then consider for referral to PT Sepsis with acute organ dysfunction 05/03/2019 08/22/2020 Assessment & Plan (05/03/2019 6:23 PM RECYCLABLE MATERIALS COLLECTOR): Due to UTI with likely bilateral cellulitis superimposed on stasis dermatitis. Lactate elevated at 3.4 on arrival and has now increased to 4.5. Management per critical care. Prepatellar bursitis of left knee 01/05/2024 COVID-19 virus infection Encounters Date Type Department Care Team Description 03/31/2024 Telephone [facility] Primary Care at [address] [place] [id number] Brian Crenshaw MD from Last 3 Months Immunizations Name Administration Dates Next Due Influenza, Quadrivalent, Hig h Dose, Preservative Free, Intrr 04/15/2022,03/23/2021 Influenza, Quadrivalent, Spl it, Preservative Free, Intramuscular 03/12/2020,05/09/2019 Influenza, Trivalent, High D ose, Split, Preservative Free, Intramuscular 12/26/2023 Influenza, Unspecified 02/09/2023(Deferred: Arlene ent Refused) Pfizer SARS-CoV-2 Monovalent Vaccination (12+ Yrs) PURPLE 08/05/2020,07/13/2020 Pneumococcal Conjugate PCV 13 08/22/2020 Pneumococcal Conjugate Pcv20 12/27/2021 Tdap 08/22/2020 ZOSTER Recombinant 11/19/2023 Surgical History Surgery Date Site/Laterality Comments HYSTERECTOMY ANKLE SURGERY FOOT SURGERY APPENDECTOMY SECTION 07/10/1977 - 08/09/1977 BREAST BIOPSY 01/31/2021 Right Medical History Medical History Date Comments Atrial fibrillation (CMS/HCC) (HCC) Morbid obesity (HCC) 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 COVID-19 virus infection Sepsis with acute organ dysfunction (HCC) 2018 Family History Medical History Relation Name Comments Cancer Brother bladder Diabetes Brother COPD Daughter Diabetes Daughter Heart disease Daughter Cancer Father Diabetes Father Heart disease Father Hypertension Father Stroke Mother Kidney cancer Son Relation Name Status Comments Brother Daughter Alive Father Mother Son Alive Social History Tobacco Use Types Packs/Day Years Used Date Smoking Tobacco: Never Smokeless Tobacco: Never Tobacco Cessation:Counseling Given: Not Answered Alcohol Use Standard Drinks/Week Comments Never 0 (1 standard drink = 0.6 oz pur e alcohol) AUDIT-C Answer Date Recorded Q1: How often do you have a drink containing alcohol? Never 12/27/2021 Q2: How many drinks containi ng alcohol do you have on a typical day when you are drinking? Patient does not drink Q3: How often do you have si x or more drinks on one occasion? Never 12/27/2021 PHQ-2 Answer Date Recorded PHQ-2 Total Score (If total score is 3 or more points, staff should administer the PHQ-9) 0 01/05/2024 Exercise Vital Sign Answer Date Recorde d On average, how many days pe r week do you engage in moderate to strenuous exercise (like a brisk walk)? 6 days 12/27/2021 On average, how many minutes do you engage in exercise at this level? 30 min 12/27/2021 Personal Safety Answer Date Recorded Have you ever been in or are you currently in a harmful physical or emotional relationship or is someone making you feel afraid or unsafe? Denies 10/12/2022 Comments No Sex and Gender Information Value Date Recorded Sex Assigned at Not on file Legal Sex Female 11:37 AM RECYCLABLE MATERIALS COLLECTOR Gender Identity Not on file Sexual Orientation Not on file Obstetrics History Para Term AB IAB SAB Ectopic Multiple Livin g Live Births 1 1 1 Date Outcome GA Total Labor Labor/2nd/3rd Weight Sex Type Anes PTL Wanda A1 A5 Name Clin Term Last Filed Vital Signs Vital Sign Reading Time Taken Comments Blood Pressure 122/80 01/05/2024 8:09 AM CDT Pulse 66 01/05/2024 8:09 AM CDT Temperature 36.4 ??C (97.6 ??F) 01/05/2024 8:09 AM CD T Respiratory Rate 18 01/05/2024 8:09 AM CDT Oxygen Saturation 99% 01/05/2024 8:09 AM CDT Inhaled Oxygen Concentration - - Weight 139.4 kg (307 lb 6.4 oz) 01/05/2024 8:09 AM CDT Height 167.6 cm (5' 6 ) 01/05/2024 8:09 AM CDT Body Mass Index 49.62 01/05/2024 8:09 AM CDT Plan of Treatment Health Maintenance Due Date Last Done Comments Breast Cancer Screening-Mammogram 06/20/2022 06/20/2021, 06/20/2021, 10/26/2020, Additional history exists Zoster Vaccine (2 of 2) 01/14/2024 11/19/2023 Colon Cancer Screening-DNA Stool 01/04/2025 09/11/2020 Postponed from 09/12/2023 (Patient declined, but will receive in the future) Depression Screening 01/04/2025 01/05/2024, 01/01/2023, 11/04/2022, Additional history exists Fall Risk Assessment 01/04/2025 01/05/2024, 01/01/2023, 11/04/2022, Additional history exists Osteoporosis Screening-Bone Density Scan 01/04/2025 09/22/2020, 09/22/2020 Postponed from 09/22/2022 (Patient declined, but will receive in the future) Well Visit 65+ 01/04/2025 01/05/2024, 12/11, 12/27/2021 DTaP/Tdap/Td Vaccine (2 - Td or Tdap) 08/22/2030 08/22/2020 Covid-19 Vaccine Discontinued 08/05/2020, 07/13/2020 Hepatitis C Screening Completed 08/22/2020 Colon Cancer Screening-FIT Discontinued 09/11/2020 Pneumococcal vaccine 65+ Completed 12/27/2021, 08/10 Influenza Vaccine Completed 12/26/2023, , 03/23/2021, Additional history exists Hepatitis B Screening Completed 01/05/2024 Medical Devices Implanted Type Area Child Welfare Caseworker Device Identifier Shelf Expiration Date Model / Serial / Lot Bard Peripheral Vascular [id number] Ultraclip Bard 17ga 10cm 2 Trigger Permanent Ultrasound - [id number] - [id number] Implanted:Qty: 1 on 01/31/2021 by Paco Herring MD at [facility] Breast Right: Breast Bard Peripheral V[employer] 11/07/2023 [id number] / Description:Implanted Right Breast 11:00 area 7 cmfn Procedures Procedure Name Priority Date/Time Associated Diagnosis Comments DIAGNOSTIC MAMMOGRAM BILATERAL W CATINA Schedule Routine, Read Routine (OP Routine) 06/20/2021 10:12 AM RECYCLABLE MATERIALS COLLECTOR Mass of upper outer quadrant of right breast DEXA AXIAL SKELETON BONE DENSITY 1 OR MORE SITES Schedule Routine, Read Routine (OP Routine) 09/22/2020 11:06 AM CDT Screening for osteoporosis Age-related osteoporosis without current pathological fracture STOOL DNA ? COLOGUARD Routine 09/11/2020 9:20 AM CDT Screening for colon cancer HEPATITIS C ANTIBODY Routine 08/22/2020 11:01 AM CDT Stage 3b chronic kidney disease from Last 3 Months or Most Recently Relevant to Health Maintenance Results * DIAGNOSTIC MAMMOGRAM BILATERAL W CATINA (06/20/2021 10:12 AM RECYCLABLE MATERIALS COLLECTOR) Anatomical Region Laterality Modality Breast Bilateral Mammography 06/20/2021 10:3 3 AM RECYCLABLE MATERIALS COLLECTOR Impressions 06/20/2021 10:33 AM RECYCLABLE MATERIALS COLLECTOR 1. ??Post biopsy changes in the right breast at the 11 o'clock position. ?? 2. ??Probably benign grouped round calcifications along the biopsy site are similar in morphology when compared to 01/31/2021. ??Stable probably benign right breast circumscribed mass at the 12 o'clock position. ??Recommend follow-up with right breast mammogram with possible ultrasound in 6 months. 3. ??Stable probably benign focal asymmetry within the left breast at the 4 to 5 o'clock position. ??Recommend follow-up with left breast mammogram with possible ultrasound in 6 months. BI-RADS: 3 - Probably benign Findings and recommendations were discussed with the patient at the time of the exam. Electronically signed by: Edwin Starks M.D. Narrative 06/20/2021 10:33 AM RECYCLABLE MATERIALS COLLECTOR EXAMINATION: DIAGNOSTIC MAMMOGRAM BILATERAL W CATINA ORDERING HEALTHCARE PROVIDER: BRIAN CRENSHAW HISTORY: Bilateral breast diagnostic mammography. COMPARISON: ??01/31/2021, 10/26/2020, and 09/22/2020 TECHNIQUE: CC and MLO views of the Bilateral breasts were obtained with digital technique using breast tomosynthesis with C view. Computer aided detection was utilized. FINDINGS: There is scattered fibroglandular tissue There is a right breast biopsy clip at the 11 o'clock position 7 cm from the nipple. ??There are grouped round calcifications along the biopsy site similar in morphology when compared to 01/31/2021. Stable probably benign right breast circumscribed mass at the 12 o'clock position and stable probably benign focal asymmetry within the left breast at the 4 to 5 o'clock position. ??There are no suspicious masses, calcifications, or architectural distortion. us Brian Crenshaw MD IMG MAMMO PROCEDURES Ameena l Result * Dexa Axial Skeleton Bone Density 1 Or 2 Site (09/22/2020 11:06 AM CDT) Anatomical Region Laterality Modality Body N/A Other 09/22/2020 1:10 PM CDT Narrative 09/22/2020 1:11 PM CDT EXAM DESCRIPTION: ?? DEXA AXIAL SKELETON BONE DENSITY 1 OR MORE SITES REASON FOR STUDY: ?? Post-menopausal female, screening for osteoporosis. Child Welfare Caseworker/Model: ?? [employer] SL (S/N [id number]) CLINICAL INFORMATION: ??Current height: ??69 inches ? Maximum height: 69 inches ? Weight: 357.8 pounds Risk factors: None COMPARISON: ??None available. FINDINGS: AP LUMBAR SPINE L1-L4: Total BMD is ??0.986 g/cm2 T-score is -0.6 LEFT HIP: Total BMD is 0.811 g/cm2 T-score is -1.1 Femoral neck BMD is 0.594 g/cm2 T-score is -2.3 IMPRESSION: ?? 1. Low bone mass by WHO criteria. 2. The WHO fracture risk assessment tool (FRAX) indicates that the 10 year risk for a major osteoporotic fracture is 10% and the 10 year risk for a hip fracture is 1.7%. The FRAX tool has not been validated in patients currently or previously treated with pharmacotherapy for osteoporosis. ??In such patients, clinical judgement must be exercised in interpreting FRAX scores as the fracture risk may be overestimated. ?? REFERENCE: ??Bone mineral density: ? Normal (T-score above or = -1.0) ? Low bone mass ??(T-score between -1.0 and -2.5) replaces the previously used term osteopenia ? Osteoporosis (T-score = or below -2.5) Medical evaluation for secondary causes of low bone mineral density may be appropriate. FRAX is a World Health Organization validated fracture risk assessment tool that calculates a person's 10 year probability of a major osteoporosis related fracture and hip fracture. ??According to the National Osteoporosis Foundation guidelines, postmenopausal women and men age 50 or older with low bone mass and a 10 year probability of a major osteoporosis related fracture = or greater than 20% or a 10 year probability of a hip fracture = or greater than 3% should be considered for treatment. For further information, including treatment recommendations, please refer to the 2013 ISCD Official Positions (http://www.iscd.org) and the NOF's Clinician's Guide to Prevention and Treatment of Osteoporosis (http://www.nof.org/professionals/clinical-guidelines) THIS IS AN ELECTRONICALLY VERIFIED FINAL REPORT 09/22/2020 1:11 PM - Electronically signed by Paco Herring M.D. AB: D: ??09/22/2020 1:11 PM T: ??09/22/2020 1:11 PM Report ID: [id number] Reading Location: ??[id number] Procedure Note Paco Herring MD - 09/22/2020 EXAM DESCRIPTION: DEXA AXIAL SKELETON BONE DENSITY 1 OR MORE SITES REASON FOR STUDY: Post-menopausal female, screening for osteoporosis. Child Welfare Caseworker/Model: [employer] (S/N [id number]) CLINICAL INFORMATION: Current height: 69 inches Maximum height: 69 inches Weight: 357.8 pounds Risk factors: None COMPARISON: None available. FINDINGS: AP LUMBAR SPINE L1-L4: Total BMD is 0.986 g/cm2 T-score is -0.6 LEFT HIP: Total BMD is 0.811 g/cm2 T-score is -1.1 Femoral neck BMD is 0.594 g/cm2 T-score is -2.3 IMPRESSION: 1. Low bone mass by WHO criteria. 2. The WHO fracture risk assessment tool (FRAX) indicates that the 10 year risk for a major osteoporotic fracture is 10% and the 10 year risk for ahip fracture is 1.7%. The FRAX tool has not been validated in patients currently or previously treated with pharmacotherapy for osteoporosis. In such patients, clinical judgement must be exercised in interpreting FRAX scores as the fracturerisk may be overestimated. REFERENCE: Bone mineral density: Normal (T-score above or = -1.0) Low bone mass (T-score between -1.0 and -2.5) replaces thepreviously used term osteopenia Osteoporosis (T-score = or below -2.5) Medical evaluation for secondary causes of low bone mineral density may be appropriate. FRAX is a World Health Organization validated fracture risk assessmenttool that calculates a person's 10 year probability of a major osteoporosisrelated fracture and hip fracture. According to the National OsteoporosisFoundation guidelines, postmenopausal women and men age 50 or older with low bonemass and a 10 year probability of a major osteoporosis related fracture = or greater than 20% or a 10 year probability of a hip fracture = or greaterthan 3% should be considered for treatment. For further information, including treatment recommendations, please referto the 2013 ISCD Official Positions (http://www.iscd.org) and the NOF's Clinician's Guide to Prevention and Treatment of Osteoporosis (http://www.nof.org/professionals/clinical-guidelines) THIS IS AN ELECTRONICALLY VERIFIED FINAL REPORT 09/22/2020 1:11 PM - Electronically signed by Paco Herring M.D. AB: Report ID: [id number] Reading Location: [place] [address] Brian Crenshaw MD IMG DXA PROCEDURES Final Result * (ABNORMAL) Stool DNA - Cologuard (09/11/2020 9:20 AM CDT) Stool DNA - Cologuard Positive (A) Not Applicable [employer]Barrister (CellcryptIA #:[id number]) Comment: It is recommended that a positive Cologuard screen be clinically correlated and followed-up with a structural examination of the colon such as diagnostic colonoscopy. Colonoscopies performed for a positive Cologuard may find as the most clinically significant lesion: colorectal cancer [4.0%], advanced adenoma (including sessile serrated polyps greater than or equal to 1cm diameter) [20%] or non- advanced adenoma [31%]; or no colorectal neoplasia [45%]. These estimates are derived from a prospective cross-sectional screening study of 10,000 individuals at average risk for colorectal cancer who were screened with both Cologuard and colonoscopy. (Table 3, Lalo Stephens al, N Engl J Med 2014;370(14):9454-9788.) The normal value (reference range) for this assay is negative. TEST TYPE: Composite algorithmic analysis of stool DNA-biomarkers with hemoglobin immunoassay. ??Quantitative values of individual biomarkers are not reportable and are not associated with individual biomarker result reference ranges. PRECAUTIONS AND LIMITATIONS: Cologuard is intended for colorectal cancer screening of adults of either sex, 45 years or older, who are at average-risk for colorectal cancer (CRC). Cologuard has been approved for use by the U.S. FDA. Cologuard may produce a false negative or false positive result. A negative Cologuard test result does not guarantee the absence of CRC or advanced adenoma (pre-cancer). Patients with a negative Cologuard test result should be advised to continue participating in a colorectal cancer screening program. The screening interval for Cologuard is currently recommended at an interval of every 3 years by the [place] [employer] and U.S. Multi-Society Task Force. A false positive result occurs when Cologuard produces a positive result, even though a colonoscopy may not find colorectal cancer or precancerous polyps. The performance of Cologuard has been established in a cross sectional study (i.e., single point in time) of average-risk adults aged 50-84. Cologuard performance in patients ages 45 to 49 years was estimated by sub-group analysis of near-age groups. Cologuard performance data in a 10,000 patient pivotal study using colonoscopy as the reference method can be accessed at the following location: [email or web address].Invested.[email or web address]/results. Additional description of the Cologuard test process, warnings and precautions can be found at www.cologuardtest.com. Rx only. Stool 09/11/2020 9:20 AM CDT 09/12/2020 12:31 PM CDT us Brian Crenshaw MD LAB BODY FLUIDS AND STOOL S ORDERABLES Final Result Performing Organization Address City/[facility] Co de Phone Number Inside Warehouse (CLIA #:[id number]) [place] [address] [place] [address] * Hepatitis C antibody (08/22/2020 11:01 AM CDT) Hep C Ab Nonreactive Nonreactive RAHAT BLAND Comment: Interpretive Data Nonreactive: Antibodies to HCV not detected. Does NOT exclude the possibility of recent exposure to HCV. Equivocal: Equivocal for HCV antibodies. Supplemental molecular testing will be automatically performed to determine infection status in accordance with current CDC screening recommendations. ?? Reactive: Positive for HCV antibodies. ??This may represent current or past HCV infection. Supplemental molecular testing will be automatically performed to determine ??current infection status in accordance with current CDC screening recommendations. Interpretive data was last revised on 2019. Blood specimen (specimen) 08/22/2020 11:01 AM CDT 08/22/2020 5:43 PM CDT us Brian Crenshaw MD LAB MICROBIOLOGY - GENERA L ORDERABLES Final Result Performing Organization Address City/[facility]/ZIP Co de Phone Number RAHAT [address] [address] Department [place] [address] from Last 3 Months or Most Recently Relevant to Health Maintenance Insurance [place] CHOICE PRF [place] [facility]ARE MEDICARE IDMO MEDICARE MEDICARE [place] [facility] MEDICARE SOLUTIONS [facility] MEDICARE Address: [address] [address] [place] [address] Advance Directives For more information, please contact: [phone] * Full Code (Latest Code Status on File) Date Activated Date Inactivated Comments 03/06/2020 10:48 PM 03/12/2020 10:12 PM * Full Code Date Activated Date Inactivated Comments 01/24/2020 5:18 AM 01/31/2020 7:25 PM * Full Code Date Activated Date Inactivated Comments 11/20/2019 1:10 AM 11/22/2019 10:22 PM * Full Code Date Activated Date Inactivated Comments 05/06/2019 8:44 AM 05/09/2019 8:32 PM Care Teams Job Captain Relationship Specialty Start Date End Date Brian Crenshaw MD [address] [place] [address] PCP - General Family Medicine 08/22/20 [place] [address] [address] [facility] [address] [place] [address] Consulting Physician Pulmonary Disease 05/09/19 Bean Paz MD [address] [place] [address] Referring Physician Internal Medicine 11/22/19 Berry Gabriel MD [address] [address] Surgeon Orthopedic Surgery 01/29/20
--- OUTSIDE RECORDS SUMMARY | 2024-06-15 15:51 | XMS_ITS | Encounter Summary ---
Author Organization [facility] Healthcare Address [address] [place] [address] Care Team Providers Care Metal Fabricating Supervisor Name Role Phone DamionAlexander craft MD Unavailable Bean Paz MD Unavailable [phone] Berry Gabriel MD Unavailable [phone] Brian Barbour MD Primary Care Provider [phone] Airam Dey CMA Unavailable Reason for Visit * Reason Onset Date Comments Scheduling Appointments 09/21/2020 no answe r for dexa Encounter Details Date Type Department Care Team (Late st Contact Info) Description 09/21/2020 Telephone [facility] [address] [place] [address] Noemy Traylor, RT Scheduling Appointments (no answer for dexa ) Social History Tobacco Use Types Packs/Day Years Used Date Smoking Tobacco: Never Smokeless Tobacco: Never Alcohol Use Standard Drinks/Week Comments Never 0 (1 standard drink = 0.6 oz pur e alcohol) AUDIT-C Answer Date Recorded Q1: How often do you have a drink containing alc ohol? Never 11/19/2019 Average Number of Drinks Not on file 020 Frequency of Binge Drinking Not on file 11/09 PHQ-2 Answer Date Recorded PHQ-2 Total Score (If total score is 3 or more points, staff should administer the PHQ-9) 0 08/22/2020 Comments No Sex and Gender Information Value Date Recorded Sex Assigned at Not on file Legal Sex Female 11:37 AM GARNETT FEEDER Gender Identity Not on file Sexual Orientation Not on file documented as of this encounter Plan of Treatment Not on file documented as of this encounter Visit Diagnoses Not on filedocumented in this encounter Additional Health Concerns Infection Onset Date Last Indicated Resolved Time MRSA Comment:05/03/19 #1 valid negative MRSA nasal swab identified. IP. [place] 09/27/17 Positive [facility] 05/04/2019 05/04/2019 12/27/2020 5:00 AM C DT documented as of this encounter Care Teams Metal Fabricating Supervisor Relationship Specialty Start Date End Date Brian Barbour MD [address] [place] [address] PCP - General Family Medicine 08/22/20 [place] [address] [address] [facility] [address] [place] [address] Consulting Physician Pulmonary Disease 05/09/19 Bean Paz MD [address] [facility] [address] [place] [address] Referring Physician Internal Medicine 11/22/19 Berry Gabriel MD [address] [facility] [address] [place] [address] Surgeon Orthopedic Surgery 01/29/20 Airam Dey, MANAGEMENT TRAINEE [address] [place] [address] ACO Care Spray I Painter 09/19/21 09/19/21 documented as of this encounter
--- OUTSIDE RECORDS SUMMARY | 2024-06-15 15:51 | XMS_ITS | Referral Summary ---
Author Organization [facility] Address [address] [place] [address] Care Team Providers Care Lasting Floorworker Name Role Phone Alexander Bruno MD Unavailable Bean Paz MD Unavailable Berry Gabriel MD Unavailable [phone] Brian Crenshaw MD Primary Care Provider [phone] Encounters Date Type Department Care Team Description 03/31/2024 Telephone [facility] Primary Care at [address] [place] [phone] Brian Crenshaw MD from Last 3 Months Allergies Active Allergy Reactions Criticality Noted Date Comments Mayonnaise Hives Medium 05/04/2019 [place] Juice Hives Medium 05/04/2019 [place] Oil Hives Medium 01/07/2022 Medications acetaminophen (TYLENOL) [...] by mouth daily 60 tablet 11 4 07/26/20 25 Active Active Problems Problem Noted Date Diagnosed Date PAD (peripheral artery disease) 01/24/2023 Skin tags, multiple acquired 03/23/2021 Assessment & Plan (03/23/2021 1:48 PM PIECE MARKER SMALL ARMS): Multiple skin tags, gluteal, but not anorectal, [...] daily Assessment & Plan (03/23/2021 1:49 PM PIECE MARKER SMALL ARMS): Stable, well controlled, continue metoprolol 25 mg [...] pressure Assessment & Plan (03/30/2021 4:05 PM PIECE MARKER SMALL ARMS): Stable, well controlled; GFR is stable around 37-38 will continue to monitor with regular checks of CMP as well as bone Metabolic panel continue with vitamin-D 02804 units weekly Assessment & Plan (09/06/2020 12:55 PM CDT): Stable, will coninue to monitor, control blood pressure Anemia of chronic disease 01/27/2020 Assessment & Plan (03/30/2021 4:04 PM PIECE MARKER SMALL ARMS): resolving bylast CBC, may not be due [...] 05/03/2019 Assessment & Plan (05/03/2019 6:19 PM PIECE MARKER SMALL ARMS): Likely caused by break in skin from chronic stasis dermatitis. Management per critical care. Atrial fibrillation with RVR ([facility]) 9 Assessment & Plan (01/05/2024 [...] week Assessment & Plan (03/23/2021 1:49 PM PIECE MARKER SMALL ARMS): Stable, well controlled, rate controlled No significant bleeding or bruising; conitnue on warfarin fo anticoagulation Assessment & Plan (09/06/2020 12:51 PM CDT): Stable, well controlled -restart metoprolol at 25 mg to reduce side effects but allow for rate control -continue Warfarin, will follow INR and adjust dose as needed Assessment & Plan (05/03/2019 6:22 PM PIECE MARKER SMALL ARMS): On warfarin at home. Amiodarone drip started, [...] today Assessment & Plan (03/23/2021 1:51 PM PIECE MARKER SMALL ARMS): Not well contolled; continues to have edema [...] grandchildren Assessment & Plan (03/23/2021 1:51 PM PIECE MARKER SMALL ARMS): Not well contolled; had recent weight gain [...] 01/05/2024 Assessment & Plan (03/23/2021 1:47 PM PIECE MARKER SMALL ARMS): New onset pain, likely epicondylitis, will give home exercises, if no impovement then consider for referral to PT Sepsis with acute organ dysfunction 05/03/2019 08/22/2020 Assessment & Plan (05/03/2019 6:23 PM PIECE MARKER SMALL ARMS): Due to UTI with likely bilateral cellulitis superimposed on stasis dermatitis. Lactate elevated at 3.4 on arrival and has now increased to 4.5. Management per critical care. Prepatellar bursitis of left knee 01/05/2024 COVID-19 virus infection Immunizations Name Administration Dates Next Due Influenza, Quadrivalent, Hig h Dose, Preservative Free, Intrr 04/15/2022,03/23/2021 Influenza, Quadrivalent, Spl it, Preservative Free, Intramuscular 03/12/2020,05/09/2019 Influenza, Trivalent, High D ose, Split, Preservative Free, Intramuscular 12/26/2023 Influenza, Unspecified 02/09/2023(Deferred: Arlene ent Refused) Pfizer SARS-CoV-2 Monovalent Vaccination (12+ Yrs) PURPLE 08/05/2020,07/13/2020 Pneumococcal Conjugate PCV 13 08/22/2020 Pneumococcal Conjugate Pcv20 12/27/2021 Tdap 08/22/2020 ZOSTER Recombinant 11/19/2023 Social History Tobacco Use Types Packs/Day Years [...] on file Legal Sex Female 11:37 AM PIECE MARKER SMALL ARMS Gender Identity Not on file Sexual Orientation [...] 01/05/2024 8:09 AM CDT Plan of Treatment Not on file Medical Devices Implanted Type Area Signalman Device Identifier Shelf Expiration Date Model / Serial / Lot Bard Peripheral Vascular [id number] Ultraclip Bard 17ga 10cm 2 Trigger Permanent Ultrasound - [id number] - [id number] Implanted:Qty: 1 on 01/31/2021 by Paco Herring MD at [facility] Breast Right: Breast Bard Peripheral Vascular 11/07/2023 [id number] / [id number] / Description:Implanted Right Breast 11:00 area 7 cmfn Procedures Procedure Name Priority Date/Time Associated Diagnosis Comments DIAGNOSTIC MAMMOGRAM BILATERAL W CATINA Schedule Routine, Read Routine (OP Routine) 06/20/2021 10:12 AM PIECE MARKER SMALL ARMS Mass of upper outer quadrant of right [...] MAMMOGRAM BILATERAL W CATINA (06/20/2021 10:12 AM PIECE MARKER SMALL ARMS) Anatomical Region Laterality Modality Breast Bilateral Mammography 06/20/2021 10:3 3 AM PIECE MARKER SMALL ARMS Impressions 06/20/2021 10:33 AM PIECE MARKER SMALL ARMS 1. ??Post biopsy changes in the right [...] Edwin Starks M.D. Narrative 06/20/2021 10:33 AM PIECE MARKER SMALL ARMS EXAMINATION: DIAGNOSTIC MAMMOGRAM BILATERAL W CATINA ORDERING [...] STUDY: ?? Post-menopausal female, screening for osteoporosis. Signalman/Model: ?? [employer] Discovery SL (S/N [id number]) CLINICAL INFORMATION: ??Current height: ??69 inches ? [...] PM T: ??09/22/2020 1:11 PM Report ID: [id number] Reading Location: ??[id number] Procedure Note Paco Herring MD - 09/22/2020 EXAM DESCRIPTION: DEXA AXIAL SKELETON BONE DENSITY 1 OR MORE SITES REASON FOR STUDY: Post-menopausal female, screening for osteoporosis. Signalman/Model: [employer] SL (S/N [id number]) CLINICAL INFORMATION: Current height: 69 inches Maximum [...] by Paco Herring M.D. AB: Report ID: [id number] Reading Location: [place] [address] Brian Crenshaw MD [facility] [place] DXA PROCEDURES Final Result * (ABNORMAL) Stool DNA - Cologuard (09/11/2020 9:20 AM CDT) Stool DNA - Cologuard Positive (A) Not Applicable Diaferon (CLIA #:[id number]) Comment: It is recommended that a positive [...] both Cologuard and colonoscopy. (Table 3, Lalo Carrero et al, N Engl J Med 2014;370(14):3706-7983.) The normal value (reference range) for this [...] interval of every 3 years by the [place] Cancer Society and U.S. Multi-Society Task Force. [...] can be accessed at the following location: [email or web address]/results. Additional description of the Cologuard test process, warnings and precautions can be found at [email or web address]. Rx only. Stool 09/11/2020 9:20 AM CDT 09/12/2020 12:31 PM CDT Brian Crenshaw MD LAB BODY FLUIDS AND STOOL S ORDERABLES Final Result [employer] (CLIA #:[id number]) [address] [address] * Hepatitis C antibody (08/22/2020 11:01 AM [...] 11:01 AM CDT 08/22/2020 5:43 PM CDT Brian Crenshaw MD LAB MICROBIOLOGY - GENERA L ORDERABLES Final Result RAHAT BLAND [address] Department [place] [address] from Last 3 Months or Most Recently Relevant to Health Maintenance Insurance [place] CHO[place]F [place] [facility]CARE MEDICARE [facility] Address: [address] [address] [place] [address] [facility] MEDICARE MEDICARE SOLUTIONS [facility] MEDICARE SOLUTIONS Advance Directives For more information, please contact: [phone] * Full Code (Latest Code Status on File) Date Activated Date Inactivated Comments 03/06/2020 10:48 PM 03/12/2020 10:12 PM * Full Code Date Activated Date Inactivated Comments 01/24/2020 5:18 AM 01/31/2020 7:25 PM * Full Code Date Activated Date Inactivated Comments 11/20/2019 1:10 AM 11/22/2019 10:22 PM * Full Code Date Activated Date Inactivated Comments 05/06/2019 8:44 AM 05/09/2019 8:32 PM Care Teams Lasting Floorworker Relationship Specialty Start Date End Date Brian Crenshaw MD [address] [place] [address] PCP - General Family Medicine 08/22/20 [place] [address] [address] [facility] [address] [place] [address] Consulting Physician Pulmonary Disease 05/09/19 Bean Paz MD [address] [facility] [address] [place] [address] Referring Physician Internal Medicine 11/22/19 Berry Gabriel MD [address] [address] Surgeon Orthopedic Surgery 01/29/20
--- OUTSIDE RECORDS SUMMARY | 2024-06-15 15:51 | XMS_ITS | Encounter Summary ---
Author Organization [facility] Healthcare Address [address] [place] [address] Care Team Providers Care Back Seam Stitcher Name Role Phone DamionAlexander craft MD Unavailable Bean Paz MD Unavailable Berry Gabriel MD Unavailable Brian Barbour MD Primary Care Provider [phone] Airam Dey CMA Unavailable [phone] Encounter Details Date Type Department Care Team (Late st Contact Info) Description 12/25/2020 Telephone [facility] [address] [place] [address] Erica Covington, RN Social History Tobacco Use Types Packs/Day Years [...] on file Legal Sex 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 Chuy ArmstrongGERRI. 09/27/17 Positive MRSA Nasal swab identified at [facility]. 05/04/2019 05/04/2019 12/27/2020 5:00 AM C DT documented as of this encounter Care Teams Back Seam Stitcher Relationship Specialty Start Date End Date Brian Barbour MD [address] [place] [address] PCP - General Family Medicine 08/22/20 [place] [address] [facility] [address] [place] [address] Consulting Physician Pulmonary Disease 05/09/19 Bean Paz MD [address] [place] [address] Referring Physician Internal Medicine 11/22/19 Berry Gabriel MD [address] [place] [address] Surgeon Orthopedic Surgery 01/29/20 Airam Dey, [facility] [address] [address] [place] [address] ACO Care Internet Manager 09/19/21 09/19/21 documented as of this encounter
--- OUTSIDE RECORDS SUMMARY | 2024-06-15 15:51 | XMS_ITS | Encounter Summary ---
Author Organization [facility] Healthcare Address [address] [place] [address] Care Team Providers Care Patient Safety Sitter Name Role Phone DamionAlexander craft MD Unavailable [phone] Bean Paz MD Unavailable [phone] Berry Gabriel MD Unavailable Brian Barbour MD Primary Care Provider [phone] Airam Dey CMA Unavailable [phone] Encounter Details Date Type Department Care Team (Late st Contact Info) Description 12/22/2020 Telephone [facility] [address] [place] [address] Erica Covington, RN Social History Tobacco Use [...] on file Legal Sex Female 11:37 AM BOARD CERTIFIED BEHAVIORAL ANALYST Gender Identity Not on file Sexual Orientation [...] documented as of this encounter Care Teams Patient Safety Sitter Relationship Specialty Start Date End Date Brian Barbour MD [address] [place] [address] PCP - General Family Medicine 08/22/20 [place] [address] [address] [facility] [address] [place] [address] Consulting Physician Pulmonary Disease 05/09/19 Bean Paz MD [address] [place] [address] Referring Physician Internal Medicine 11/22/19 Berry Gabriel MD [address] [place] [address] Surgeon Orthopedic Surgery 01/29/20 Airam Dey, [facility] [address] [place] [address] ACO Care Seismograph Operator Helper 09/19/21 09/19/21 documented as of this encounter
--- OUTSIDE RECORDS SUMMARY | 2024-06-15 15:51 | XMS_ITS | Clinical Summary ---
Author Organization [facility] Address [address] [place] [address] Care Team Providers Care Transit Clerk Name Role Phone Bean Paz MD Primary Care Provider [phone] Allergies No known active allergies Medications acetaminophen (TYLENOL) 500 mg tablet Take 500 mg by mouth every 6 hours as needed. Active cholecalciferol, vitamin D3, 1,000 unit Take 800 Units by mouth daily. Active white petrolatum-minera l oil (EUCERIN) Cream Apply to affected area 2 times daily. 8 Active warfarin (COUMADIN) 5 mg tablet Take 1/2 (one-half) tablet by mouth once daily 30 Tablet 0 Active warfarin (COUMADIN) 5 mg tablet TAKE 1/2 TABLET BY MOUTH ONCE DAILY 30 Tablet 1 0 Active metoprolol tartrate (LOPRESSOR) 50 mg tabletIndications :Atrial fibrillation with RVR (CMS/HCC) Take 1 Tablet (50 mg) by mouth 2 times daily. 60 Tablet 3 0 Active warfarin (COUMADIN) 2 mg tablet Take 1 Tablet (2 mg) by mouth daily. 90 Tablet 1 0 Active DILT-XR 180 mg Extended Release capsule Take 1 capsule by mouth once daily 30 Capsule 0 Active Active Problems Problem Noted Date Diagnosed Date Cellulitis 10/23/2017 Atrial fibrillation with RVR 10/16/2017 SOB (shortness of breath) 10/16/2017 CKD (chronic kidney disease) stage 3, GFR 30-59 ml/min 10/16/2017 Bilateral leg edema Warfarin-induced coagulopathy Resolved Problems Problem Noted Date Diagnosed Date Resolved Date Leg swelling 10/16/2017 05/14/2018 Morbid obesity, unspecified obesity type 05/14/2018 Family History Medical History Relation Name Comments Cancer Brother kidney and blad romeo Diabetes Brother Hypertension Brother Stroke Brother Diabetes Father Heart Disease Father Hypertension Father Lung Cancer Father Stroke Mother Relation Name Status Comments Brother Father Mother Social History Tobacco Use Types [...] Sign Reading Time Taken Comments Blood Pressure 129/81 01/20/2020 9:00 PM CDT Pulse 109 01/20/2020 9:00 PM CDT Temperature 36.6 ??C (97.8 ??F) 01/20/2020 2:59 PM CD T Respiratory Rate 18 01/20/2020 2:59 PM CDT Oxygen Saturation 94% 01/20/2020 9:00 PM CDT Inhaled Oxygen Concentration - - Weight 158.8 kg (350 lb) 01/20/2020 2:59 PM CDT Height 175.3 cm (5' 9 ) 01/20/2020 2:59 PM CDT Body Mass Index 51.69 01/20/2020 2:59 PM CDT Plan of Treatment Health Maintenance Due Date Last Done Comments DTAP/TDAP/TD VACCINES (1 - Tdap) 1974 PNEUMOCOCCAL VACCINE 65+ YEA RS (1 of 2 - PCV) 1974 BREAST CANCER SCREENING 1995 COLORECTAL SCREENING 2000 Colorectal Cancer Screening 2000 FIT-DNA Q 3 years 2000 FIT/FOBT Q 1 year 2000 Flex Sig/CT Colonography Q 5 years 2000 ZOSTER VACCINE (1 of 2) 2005 RSV VACCINE (60+ or ) (1 - Risk 60-74 years 1-dose series) 2015 OSTEOPOROSIS SCREENING 2020 INFLUENZA VACCINE (#1) 2023 , 05/09/2019, 03/01/2019 Insurance [place]ICAID [place] Advance Directives For more information, please contact: [phone] * Full Code (Latest Code Status on File) Date Activated Date Inactivated Comments 10/23/2017 5:02 PM 10/29/2017 1:22 PM Care Teams Transit Clerk Relationship Specialty Start Date End Date Bean Paz MD PCP - General Internal Medicine 10/14/17
--- OUTSIDE RECORDS SUMMARY | 2024-06-15 15:51 | XMS_ITS | Encounter Summary ---
Author Organization [facility] Healthcare Address [address] [place] [address] Care Team Providers Care Powertrain Design Engineer Name Role Phone DamionAlexander craft MD Unavailable Bean Paz MD Unavailable Berry Gabriel MD Unavailable [phone] Brian Barbour MD Primary Care Provider [phone] Airam Dey CMA Unavailable [phone] Reason for Visit * Reason Onset Date Comments Scheduling Appointments 10/25/2020 Confirmi ng mammogram appt Encounter Details Date Type Department Care Team (Late st Contact Info) Description 10/25/2020 Telephone [facility] [address] [place] [address] [place] Scheduling Appointments (Confirming mammogram appt) Social History Tobacco Use Types Packs/Day Years [...] on file Legal Sex Female 11:37 AM CARE TRANSITION MGR Gender Identity Not on file Sexual Orientation Not on file documented as of this encounter Plan of Treatment Not on file documented as of this encounter Visit Diagnoses Not on filedocumented in this encounter Additional Health Concerns Infection Onset Date Last Indicated Resolved Time MRSA Comment:05/03/19 #1 valid negative MRSA nasal swab identified. IP. [place] 09/27/17 Positive MRSA Nasal swab identified at [facility]. 05/04/2019 05/04/2019 12/27/2020 5:00 AM C DT documented as of this encounter Care Teams Powertrain Design Engineer Relationship Specialty Start Date End Date Brian Barbour MD [address] [place] [address] PCP - General Family Medicine 08/22/20 [place] [address] [address] [facility] [address] [place] [address] Consulting Physician Pulmonary Disease 05/09/19 Bean Paz MD [address] [facility] [address] [place] [address] Referring Physician Internal Medicine 11/22/19 Berry Gabriel MD [address] [facility] [address] [place] [address] Surgeon Orthopedic Surgery 01/29/20 Airam Dey, [facility] [address] [place] [address] ACO Care Kiln Car Unloader 09/19/21 09/19/21 documented as of this encounter
--- NOTE | 2024-06-15 16:03 | ED.BACK ---
HPI - Back Pain/Injury General Chief Complaint: Urogenital-Female Stated Complaint: lower back pain Time Seen by Provider: 06/15/24 16:03 Source: patient Mode of arrival: ambulatory Limitations: no limitations History of Present Illness HPI Narrative: 68-year-old female presented for complaint of right lower back pain for 4 days. Taking Tylenol. Denies known injury. She states the last time she had pain like this she had a kidney infection. Says she saturated her Depends. denies hematuria, nausea, vomiting, abdominal pain, constipation, diarrhea, fevers or chills. Denies pain radiating into the hips or legs, numbness, tingling, weakness of the lower extremities, or change in gait, saddle paresthesia or loss of bowel or bladder. Related Data Home Medications ?Medication ?Instructions ?Recorded ?Confirmed ?Last Taken ?Type diltiazem HCl 180 mg 180 mg PO DAILY 06/04/19 09/17/21 Unknown History capsule,extended release 24 hr, controlled (DILT-XR) warfarin 2.5 mg tablet 2.5 mg PO DAILY 06/04/19 09/17/21 Unknown History Allergies Allergy/AdvReac Type Severity Reaction Status Date / Time No Known Allergies Allergy Verified 06/15/24 15:56 Review of Systems Review of Systems: CONSTITUTIONAL: Denies body aches, fever, chills EYES: Denies visual changes CARDIOVASCULAR: Denies chest pain, palpitations, or edema. RESPIRATORY: Denies cough or dyspnea. GASTROINTESTINAL: Denies abdominal pain, nausea, vomiting, or diarrhea. SKIN: Denies rash, itching, or wounds. MUSCULOSKELETAL: reports back pain NEUROLOGIC: Denies headache, numbness, tingling, or weakness. All systems reviewed & are unremarkable except as noted in HPI and below PMFSH Past Medical History Medical History Toes fractured Fracture of right foot Hypertension Asthma reports as child Urinary tract infection A-fib Surgical History Surgical History H/O section History of appendectomy History of hysterectomy History of tonsillectomy Hx of left knee surgery Family History Family History Other No significant family history Social History Social History Smoking status: Unknown if ever smoked Alcohol intake: never Substance use: never Gender identity (if verbalized by the patient): Male Comments At time of signature, I have reviewed and agree with nursing past medical, surgical, social and family history unless otherwise noted. Please see nursing chart for further information. There is no relevant family history pertinent to the presenting complaint Exam Narrative: GENERAL: Well-appearing, and in no acute distress. CHEST: Speaks in full sentences. No respiratory distress. HEART: Regular rate and rhythm. Normal and equal peripheral pulses. MUSC: No Vertebral point tenderness. right posterior hip tender with deep palpation. BLEs with normal strength and sensation, baseline range of motion. No ecchymosis, No open wounds, or obvious deformity; alignment normal, pulse palpable and equal bilaterally, skin warm, dry, pink. Capillary refill less than 3 seconds. Gait steady, slow, slow to get up from seated. SKIN: Warm, dry, no rash. NEURO: Alert and oriented x3. Course Course Emergency Course: Patient is aware of diagnosis, understands and agrees to treatment plan. Anticipatory guidance given. Patient agrees to follow-up as directed and is aware of reasons to seek care at the emergency department. Portions of this record may have been created with voice recognition software Level of Care: Express Care Visit Vital Signs Vital signs: Vital Signs Temperature 99.4 F 06/15/24 15:50 Pulse Rate 88 06/15/24 15:50 Respiratory Rate 20 06/15/24 15:50 Blood Pressure 135/93 H 06/15/24 15:50 Pulse Oximetry 99 06/15/24 15:50 Oxygen Delivery Room Air 06/15/24 15:50 Temperature 99.4 F 06/15/24 15:50 Pulse Rate 88 06/15/24 15:50 Respiratory Rate 20 06/15/24 15:50 Blood Pressure 135/93 H 06/15/24 15:50 Pulse Oximetry 99 06/15/24 15:50 Oxygen Delivery Room Air 06/15/24 15:50 Reviewed MDM - Back Pain/Injury MDM Narrative Medical decision making narrative: Result of urine reviewed with pt Advised supportive measures and s/s to go to the ER. Pt is stable and appropriate for outpt treatment and follow up with pcp. Differential Diagnosis Differential diagnosis: Likely lumbar radiculopathy, sciatica, strain of lumbar region, renal colic, pyelonephritis and discitis Lab Data Labs: Lab Results 06/15/24 Range/Units 16:34 POC Urine Color Light/pale POC Urine Clarity Cloudy POC Urine pH 5.5 POC Ur Specif Recluse 1.025 POC Urine Protein Negative (Negative) POC Ur Glucose (UA) Negative (Negative) POC Urine Ketones Negative (Negative) POC Urine Blood Negative (Negative) POC Urine Nitrite Negative (Negative) POC Urine Bilirubin Negative (Negative) POC Urine Urobilinogen 0.2 POC U Leukocyte Esteras Negative (Negative) Discharge Plan Discharge Clinical Impression: Low back pain Patient Disposition: Home, Self-Care Condition: Stable Instructions: Antibiotic Form, Back Pain (ED) Additional Instructions: Please follow up with your Primary Care Doctor within 48-72 hours - call for an appointment. Avoid lifting. pushing. pulling, or anything that worsens the pain. Tylenol 1000mg every 8 hours Take muscle relaxers every 8 hours as needed for muscle spasm- do not drive or make any important decisions while on this medication for it can make you drowsy. Over the counter pain cream like icy/hot or biofreeze, or Salon pas/lidocaine 4% patch. You may apply heat or cold to the area as needed. Go to the ER for worsening symptoms or concerns Patient Language: Belarusian Prescriptions: New cyclobenzaprine 10 mg tablet 10 mg PO TID PRN (Reason: muscle spasm) Qty: 12 0RF No Action warfarin 2.5 mg Tablet 2.5 mg PO DAILY diltiazem HCl [DILT-XR] 180 mg Capsule,Ext.Rel 24h Degradable 180 mg PO DAILY Follow-up/Referrals: Angle,MD Brian [Primary Care Provider] - Time of Disposition: 16:58
[2024-06-15 16:41] LABS: EDUAAPPEAR Cloudy; EDUABILI Negative (Negative); EDUABLOOD Negative (Negative); EDUACOLOR1 Light/Pale; EDUAGLUCOSE Negative (Negative); EDUAKETONE Negative (Negative); EDUALEUKO Negative (Negative); EDUANITRATE Negative (Negative); EDUAPH 5.5; EDUAPROTEIN Negative (Negative); EDUASPGRAVITY 1.025; EDUAUROBILI 0.2
== END 2024-06-15 17:01 | disposition home or self-care (01) ==
PROVIDERS: Emergency Provider Nurse Practitioner Family; PCP Hospitalist
DX: M54.50 Low back pain, unspecified (principal); I10 Essential (primary) hypertension; I48.91 Unspecified atrial fibrillation
CPT/HCPCS: 81003; 87086; 99213; G0463

== ENCOUNTER 2025-01-24 17:20 | Emergency (ER) | payer MEDICARE, MEDICAID, SELFPAY ==
[2025-01-24 17:33] VITALS: BP 147/80; PULSE 128; RESP 20; TEMP 37.4; O2SAT 94
--- NOTE | 2025-01-24 17:41 | ED.EXTPRO ---
HPI - Extremity Problem General Chief complaint: Extremity Problem,Nontraumatic Stated complaint: Right foot pain Time Seen by Provider: 01/24/25 17:41 Source: patient Mode of arrival: ambulatory Limitations: no limitations History of Present Illness HPI Narrative: 69 y/o female with hx HTN, lymphedema, presented for c/o right foot redness and pain for 2 days. Endorses following with the wound clinic for chronic wounds to left leg, but says she could not go today due to the foot pain. Reports chills. Says the pain is from wearing hard sandals. Related Data Home Medications ?Medication ?Instructions ?Recorded ?Confirmed ?Last Taken ?Type diltiazem HCl 180 mg 180 mg PO DAILY 06/04/19 09/17/21 Unknown History capsule,extended release 24 hr, controlled (DILT-XR) warfarin 2.5 mg tablet 2.5 mg PO DAILY 06/04/19 09/17/21 Unknown History Allergies Allergy/AdvReac Type Severity Reaction Status Date / Time No Known Allergies Allergy Verified 01/24/25 17:36 Review of Systems Review of Systems: CONSTITUTIONAL: Denies body aches, fever, reports chills. CARDIOVASCULAR: Denies chest pain, palpitations reports chronic lymphedema RESPIRATORY: Denies cough or dyspnea. GASTROINTESTINAL: Denies abdominal pain, nausea, vomiting, or diarrhea. SKIN: reports wounds to LLE, right foot redness and pain MUSCULOSKELETAL: Denies back pain, joint pain, or myalgia. NEUROLOGIC: Denies headache, numbness, tingling, or weakness. PMFSH Past Medical History Medical History Toes fractured Fracture of right foot Hypertension Asthma reports as child Urinary tract infection A-fib Surgical History Surgical History H/O section History of appendectomy History of hysterectomy History of tonsillectomy Hx of left knee surgery Family History Family History Other No significant family history Social History Social History Smoking status: Unknown if ever smoked Alcohol intake: never Substance use: never Gender identity (if verbalized by the patient): Male Comments At time of signature, I have reviewed and agree with nursing past medical, surgical, social and family history unless otherwise noted. Please see nursing chart for further information. There is no relevant family history pertinent to the presenting complaint Exam Narrative: GENERAL: chronically ill-appearing ENT: Mucous membranes moist. Oropharynx without edema, erythema or lesions. CHEST: Clear to auscultation. HEART: Regular rate and rhythm. SKIN: BLEs with lymphedema, dry flaky skin to lower legs. Right foot erythematous, tender with light palpation, warm, mild swelling to the foot. Left lateral/posterior open wound draining serosanguineous fluid, PPP and equal bilaterally. Pt has difficulty lifting the extremities has to manually lift the legs. NEURO: Alert and oriented x3 Course Course Emergency Course: Patient is aware of diagnosis, understands and agrees to treatment plan. Anticipatory guidance given. Patient agrees to follow-up as directed and is aware of reasons to seek care at the emergency department. Portions of this record may have been created with voice recognition software Level of Care: Express Care Visit Vital Signs Vital signs: Vital Signs Temperature 99.4 F 01/24/25 17:33 Pulse Rate 128 H 01/24/25 17:33 Respiratory Rate 20 01/24/25 17:33 Blood Pressure 147/80 H 01/24/25 17:33 Pulse Oximetry 94 01/24/25 17:33 Oxygen Delivery Room Air 01/24/25 17:33 Temperature 99.4 F 01/24/25 17:33 Pulse Rate 128 H 01/24/25 17:33 Respiratory Rate 20 01/24/25 17:33 Blood Pressure 147/80 H 01/24/25 17:33 Pulse Oximetry 94 01/24/25 17:33 Oxygen Delivery Room Air 01/24/25 17:33 Reviewed Transfer Transfered to: [facility] Transportation: Other ( private vehicle) Transfer rationale: Pt is agreeable to transfer. Requests transfer to [facility] via private vehicle. Risks of transportation reviewed with pt including injury, worsening of condition and . v/u. son will be driving pt; Report called to hospital, spoke with Mary Savage, accepting physician. Pt is in stable condition at time of transfer. Advised to remain NPO and go directly to the hospital. MDM - Extremity (Nontraumatic) MDM Narrative Medical decision making narrative: Pt with right foot erythema, warmth, tender with light touch; chronic wounds. Advised ER transfer. Pt elects [facility]. Tylenol given. Differential Diagnosis Differential diagnosis: Likely cellulitis, superficial thrombophlebitis, lower extremity edema and deep vein thrombosis of lower extremity Discharge Plan Discharge Clinical Impression: Cellulitis Qualifiers: Site of cellulitis: extremity Site of cellulitis of extremity: lower extremity Laterality: right Qualified Code(s): L03.115 - Cellulitis of right lower limb Patient Disposition: Acute Care Hospital Condition: Stable Patient Language: Japanese Prescriptions: No Action warfarin 2.5 mg Tablet 2.5 mg PO DAILY diltiazem HCl [DILT-XR] 180 mg Capsule,Ext.Rel 24h Degradable 180 mg PO DAILY Follow-up/Referrals: Angle,MD Brian [Primary Care Provider, Unknown] Time of Disposition: 18:08
--- NOTE | 2025-01-24 18:06 | PC.NURSE ---
No EMS available to take pt to [facility] ER. Son left to get family and will drive her when he gets back.
[2025-01-24] MEDS: ACETAMINOPHEN 500 MG TABLET 1000 MG PO (18:12)
--- OUTSIDE RECORDS SUMMARY | 2025-01-24 18:51 | XMS_ITS | Encounter Summary ---
Author Organization [facility] Healthcare Address [address] [place] [address] Care Team Providers Care Grocery Carrier Name Role Phone Alexander Bruno MD Unavailable [phone] Bean Paz MD Unavailable [phone] Berry Gabriel MD Unavailable [phone] Brian Barbour MD Primary Care Provider [phone] Reason for Visit * Reason Comments Foot Pain Encounter Details Date Type Department Care Team (Late st Contact Info) Description 01/24/2025 6:51 PM CDT Emergency [facility] Emergency Department [address] [place] [id number] Social History Tobacco Use Types Packs/Day Years Used Date Smoking Tobacco: Never Smokeless Tobacco: Never Alcohol Use Standard Drinks/Week Comments Never 0 (1 standard drink = 0.6 oz pur e alcohol) OASIS D0700: Social Isolation Answer Da te Recorded Frequency of experiencing loneliness or isolatio n Never 01/19/2025 OASIS A1250: Transportation Answer Date Recorded Lack of Transportation (Medical) No 01/19/2025 Lack of Transportation (Non-Medical) No 01/19/2025 Patient Unable or Declines to Respond No 01/19/2025 OASIS B1300: Health Literacy Answer Brandon e Recorded Frequency of needing help to read materials from doctor or pharmacy Never 01/19/2025 [facility] Utilities Answer Date Recorded In the past 12 months has th e [employer], oil, or water [employer] threatened to shut off services in your home? No 11/15/2024 Social Connection and Isolation Panel Answer Date Recorded In a typical week, how many times do you talk on the phone with family, friends, or neighbors? More than three times a week 11/15/2024 How often do you get togethe r with friends or relatives? More than three times a week 11/15/2024 How often do you attend chur ch or yazdanism services? 1 to 4 times per year 11/15/2024 Do you belong to any clubs o r organizations such as advent groups, unions, fraternal or athletic groups, or school groups? No 11/15/2024 How often do you attend meet ings of the clubs or organizations you belong to? Never 11/15/2024 Are you , , di vorced, , never , or living with a partner? 11/15/2024 AUDIT-C Answer Date Recorded Q1: How often do you have a drink containing alcohol? Never 12/27/2021 Q2: How many drinks containi ng alcohol do you have on a typical day when you are drinking? Patient does not drink Q3: How often do you have si x or more drinks on one occasion? Never 12/27/2021 Overall Financial Resource Strain (CARDIA) Answe r Date Recorded How hard is it for you to pa y for the very basics like food, housing, medical care, and heating? Not hard at all 11/15/2024 PHQ-2 Answer Date Recorded PHQ-2 Total Score (If total score is 3 or more points, staff should administer the PHQ-9) 0 09/21/2024 Exercise Vital Sign Answer Date Recorde d On average, how many days pe r week do you engage in moderate to strenuous exercise (like a brisk walk)? 6 days 12/27/2021 On average, how many minutes do you engage in exercise at this level? 30 min 12/27/2021 Hunger Vital Sign Answer Date Recorded Within the past 12 months, y ou worried that your food would run out before you got the money to buy more. Never true 11/16/19 25 Within the past 12 months, t he food you bought just didn't last and you didn't have money to get more. Never true 11/15/2024 PRAPARE - Transportation Answer Date Re corded In the past 12 months, has l ack of transportation kept you from medical appointments or from getting medications? No 11/2024 In the past 12 months, has l ack of transportation kept you from meetings, work, or from getting things needed for daily living? No 11/15/2024 Housing Stability Vital Sign Answer Brandon e Recorded In the last 12 months, was t here a time when you were not able to pay the mortgage or rent on time? No 11/15/2024 In the past 12 months, how m any times have you moved where you were living? 0 11/15/2024 At any time in the past 12 m [facility], were you homeless or living in a longterm (including now)? No 11/15/2024 Personal Safety Answer Date Recorded Have you ever been in or are you currently in a harmful physical or emotional relationship or is someone making you feel afraid or unsafe? Denies 11/12/2024 Education Answer Date Recorded What is the highest level of school you have completed or the highest degree you have received? 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 Gender Identity Not on file Sexual Orientation Not on file documented as of this encounter Last Filed Vital Signs Vital Sign Reading Time Taken Comments Blood Pressure 139/75 01/24/2025 6:59 PM CDT Pulse 85 01/24/2025 6:59 PM CDT Temperature 37.5 C (99.5 F) 01/24/2025 6:59 PM CDT Respiratory Rate 16 01/24/2025 6:59 PM CDT Oxygen Saturation 93% 01/24/2025 6:59 PM CDT Inhaled Oxygen Concentration - - Weight 154.2 kg (340 lb) 01/24/2025 6:59 PM CDT Height 175.3 cm (5' 9) 01/24/2025 6:59 PM CDT Body Mass Index 50.21 01/24/2025 6:59 PM CDT documented in this encounter ED Notes * Joan Leonard RN - 01/24/2025 6:58 PM CDT Pt to triage c/o R foot pain and warmth. Pt states she thinks it is from her shoes but pt was sent from urgent care for work up for an infection. Denies diabetes. Denies injury. documented in this encounter Plan of Treatment Not on file documented as of this encounter Visit Diagnoses Not on filedocumented in this encounter Care Teams Grocery Carrier Relationship Specialty Start Date End Date Brian Barbour MD [address] [place] [address] PCP - General Family Medicine 08/22/20 [place] [address] [place] [address] Consulting Physician Pulmonary Disease 05/09/19 Bean Paz MD [address] [place] [address] Referring Physician Internal Medicine 11/22/19 Berry Gabriel MD [address] [place] [address] Surgeon Orthopedic Surgery 01/29/20 documented as of this encounter
--- OUTSIDE RECORDS SUMMARY | 2025-01-24 19:09 | XMS_ITS | Clinical Summary ---
Author Organization [facility] Facility Address [address] [place] [address] Care Team Providers Care Cabin Worker Name Role Phone Brian Barbour MD Primary Care Provider [phone] Allergies Active Allergy Reactions Criticality Noted Date Comments Dawson Oil Hives 01/07/2022 Medications acetaminophen (TYLENOL) 500 [...] Colorectal Cancer Screening: Sigmoidoscopy 2004 Pneumococcal Vaccine: 50+ Ye ars (1 of 1 - PCV) 2005 Influenza Vaccine (#1) 2025 Hepatitis B Vaccine Aged Out No longe r eligible based on patient's age to complete this topic Care Teams Cabin Worker Relationship Specialty Start Date End Date Brian Barbour MD [address] [place] [address] PCP - General Family Medicine 01/07/22
--- OUTSIDE RECORDS SUMMARY | 2025-01-24 19:09 | XMS_ITS | Encounter Summary ---
Author Organization [facility] Healthcare Address [address] [place] [address] Care Team Providers Care Willow Worker Name Role Phone Alexander Bruno MD Unavailable [phone] Bean Paz MD Unavailable Berry Gabriel MD Unavailable Brian Barbour MD Primary Care Provider [phone] Reason for Visit * Reason Onset Date Comments Appointment Request 12/29/2024 Encounter Details Date Type Department Care Team (Late st Contact Info) Description 12/29/2024 Telephone Family Physicians [address] [address] Brian Barbour MD [address] [place] [address] Appointment Request Social History Tobacco Use Types Packs/Day Years Used Date Smoking Tobacco: Never Smokeless Tobacco: Never Alcohol Use Standard Drinks/Week Comments Never 0 (1 standard drink = 0.6 oz pur e alcohol) OASIS D0700: Social Isolation Answer Da te Recorded Frequency of experiencing loneliness or isolatio n Never 11/22/2024 OASIS A1250: Transportation Answer Date Recorded Lack of Transportation (Medical) No 11/22/2024 Lack of Transportation (Non-Medical) No 11/22/2024 Patient Unable or Declines to Respond No 11/22/2024 OASIS B1300: Health Literacy Answer Brandon e Recorded Frequency of needing help to read materials from doctor or pharmacy Never 11/22/2024 [facility] Utilities Answer Date Recorded In the past 12 months has e electric, gas, oil, or water company threatened to shut off services in your [...] often do you attend chur ch or taoist services? 1 to 4 times per year 11/15/2024 Do you belong to any clubs o r organizations such as lutheran groups, unions, fraternal or athletic groups, or [...] any time in the past 12 m onths, were you homeless or living in a mcc (including now)? 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 but she does have an appt on 01/11 with Meaghan. Patient stated that appt would work to just go ahead and keep that appointment. * Telephone Encounter - Shaan Cervantes MA - 12/29/2024 9:46 AM CDT Appointment Request What visit type does the patient need? Visit Type: Established Patient What is the reason for the visit? Patient requesting a call back to reschedule her 12/30/24 appt with Deana Barbour to an alternate date (Friday or , Afternoon, Charles only) Patient has wound care appt that conflicts with this appt. only What is the reason we were unable to schedule the appointment? Current appointment availability didnot meet patient's need. If applicable, were all members of the patient's PCP care team offered (e.g., nurse practioner(s), physician psych assistant(s)) ? Yes Additional Comments: Call back needed please. Does message need to be routed? Yes-Action Needed documented in this encounter Plan of Treatment Not on file documented as of this encounter Visit Diagnoses Not on filedocumented in this encounter Care Teams Willow Worker Relationship Specialty Start Date End Date Brian Barbour MD [address] [place] [address] PCP - General Family Medicine 08/22/20 [place] [address] [place] [address] Consulting Physician Pulmonary Disease 05/09/19 Bean Paz MD [address] [place] [address] Referring Physician Internal Medicine 11/22/19 Berry Gabriel MD [address] [place] [address] Surgeon Orthopedic Surgery 01/29/20 documented as of this encounter
--- OUTSIDE RECORDS SUMMARY | 2025-01-24 19:09 | XMS_ITS | Encounter Summary ---
Author Organization [facility] Healthcare Address [address] [place] [address] Care Team Providers Care Motor Vehicle Parts Interpreter Name Role Phone DamionAlexander craft MD Unavailable [phone] Bean Paz MD Unavailable Berry Gabriel MD Unavailable Brian Barbour MD Primary Care Provider [phone] Airam Dey CMA Unavailable [phone] Jose Norwood MA Unavailable [phone] Adia Sanchez RN Unavailable Alisia Gonzalez RN Unavailable Encounter Details Date Type Department Care Team (Late st Contact Info) Description 12/25/2020 Telephone [facility] [address] [place] [id number] Erica Covington, RN Social History Tobacco Use [...] on file 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 GERRI Joya. 09/27/17 Positive MRSA Nasal swab identified at [facility]. 05/04/2019 05/04/2019 12/27/2020 5:00 AM C DT COVID: Suspected 07/06/2024 07/06/2024 07/06/2024 11:51 AM SENIOR CASE MANAGER COVID: Suspected 08/17/2024 08/17/2024 08/17/2024 8:54 PM CDT Coronavirus, droplet Comment:Patient is asymptomatic and Isolation precautions are only for duration of illness. Per Attending provider, Patient is ok to remove isolation. Magan TALLEY 08/18/2024 08/18/2024 08/23/2024 1:48 PM CDT COVID: Suspected 11/12/2024 11/12/2024 11/12/2024 3:57 PM CDT documented as of this encounter Care Teams Motor Vehicle Parts Interpreter Relationship Specialty Start Date End Date Brian Barbour MD [address] [place] [address] PCP - General Family Medicine 08/22/20 [place] [address] [place] [address] Consulting Physician Pulmonary Disease 05/09/19 Bean Paz MD [address] [place] [address] Referring Physician Internal Medicine 11/22/19 Berry Gabriel MD [address] [facility] [address] [place] [address] Surgeon Orthopedic Surgery 01/29/20 Airam Dey CMA [address] [place] [address] [address] [place] [address] ACO Care Integration Architect 09/19/21 09/19/21 Jose Norwood MA [address] [place] [address] [address] [place] [address] ACO Care Integration Architect 07/06/24 07/06/24 Adia Sanchez RN [address] [place] [address] [address] [place] [address] Restaurant Area Manager 07/13/24 08/12/24 Alisia Gonzalez RN [address] [place] [address] [address] [place] [address] Restaurant Area Manager 08/26/24 09/12/24 documented as of this encounter
--- OUTSIDE RECORDS SUMMARY | 2025-01-24 19:09 | XMS_ITS | Clinical Summary ---
Author Organization [facility] Address [address] [place] [address] Care Team Providers Care Tooth Inspector Name Role Phone Alexander Bruno MD Unavailable [phone] Bean Paz MD Unavailable [phone] Berry Gabriel MD Unavailable [phone] Brian Crenshaw MD Primary Care Provider [phone] Allergies Active Allergy Reactions Criticality Noted Date Comments Mayonnaise Hives Medium 05/04/2019 Oneco Juice Hives Medium 05/04/2019 Oneco Oil Hives Medium 01/07/2022 Medications acetaminophen (TYLENOL) 500 mg tabletIndicatio ns:Fever,mild to moderate pain Take 1 tablet (500 mg total) by mouth every 6 (six) hours as needed Active warfarin (COUMADIN) 2 mg tabletIndicatio ns:if INR <2 Take 1 tablet (2 mg total) by mouth daily 30 tablet 08/26/19 25 Active triamcinolone (KENALOG) 0.1 % creamIndication s:Lymphedema of both lower extremities Apply to affected area 1-2 times daily as needed. Avoid face and groin. 80 g 5 09/22/19 25 026 Active bacitracin-neom ycin-polymyxin B (NEOSPORIN) ointmentIndicat ions:Lymphedema of both lower extremities Apply topically 3 (three) times a day 15 g 3 05/13/20 25 Active cephalexin (KEFLEX) 250 mg capsuleIndicati ons:Chronic Suppression Take 1 capsule (250 mg total) by mouth daily for 180 doses 30 capsule 5 11/27/19 25 026 Active sodium chlor-hypochlor ous acid (Vashe) 0.033 % irrigation solution Wash the wounds once daily and prn with Vashe. Apply Vashe to dry 4 x 4, wring out excess, apply moistened 4 x 4 to the wound bed, applied dry 4 x 4 on top, and secure down. 250 mL 2 12/01/19 25 Active warfarin (COUMADIN) 4 mg tabletIndicatio ns:VTE Prophylaxis Take 4 mg by mouth daily. Indications: VTE Prophylaxis Active warfarin (COUMADIN) 2 mg tabletIndicatio ns:VTE Prophylaxis Take 2 mg by mouth 3 (three) times a week. Friday Indications: VTE Prophylaxis Active DILT-XR 180 mg 24 hr capsuleIndicati ons:hypertensio n Take 1 capsule by mouth once daily 90 capsule 01/05/20 25 Active DILT-XR 180 mg 24 hr capsuleIndicati ons:hypertensio n Take 1 capsule by mouth once daily 90 capsule 10/09/19 25 025 Discontinued Active Problems Problem Noted Date Diagnosed Date Sepsis due to Streptococcus pyogenes 11/15/2024 Bacteremia 11/14/2024 RISSA (acute kidney injury) 11/14/2024 Reduced mobility 11/13/2024 Generalized weakness 11/12/2024 Chronic atrial fibrillation 11/09/2024 Retroperitoneal hematoma 08/27/2024 Assessment & Plan (09/21/2024 8:45 PM CDT): Stable, resolving; no further imaging required based upon interventional radiology; will restart warfarin, monitor INR closely; evaluate for risk of recurrent disease Assessment & Plan (08/31/2024 7:23 AM CDT): Patient presenting with large R retroperitoneal hematoma with initial concern for active extravasation at OSH. CTA here stable without active extravasation. Hgb and vital signs remain stable. IR recommending conservative management for now. S/p IV vitamin K and FFP x2. No need to re-image upon discharge. - Monitor CBC q12h, active T&S, consented - CTA if Hgb drops or vital sign changes - Hold warfarin Assessment & Plan (08/30/2024 8:59 AM CDT): Patient presenting with large R retroperitoneal hematoma with initial concern for active extravasation at OSH. CTA here stable without active extravasation. Hgb and vital signs remain stable. IR recommending conservative management for now. S/p IV vitamin K and FFP x2. No need to re-image upon discharge. - Monitor CBC q12h, active T&S, consented - CTA if Hgb drops or vital sign changes - Hold warfarin Assessment & Plan (08/29/2024 11:56 AM CDT): Patient presenting with large R retroperitoneal hematoma with initial concern for active extravasation at OSH. CTA here stable without active extravasation. Hgb and vital signs remain stable. IR recommending conservative management for now. S/p IV vitamin K and FFP x2. - Monitor CBC q12h, active T&S, consented - CTA if Hgb drops or vital sign changes - Hold warfarin - Consider Heme consult 08/30 Assessment & Plan (08/28/2024 7:47 AM CDT): Patient presenting with large R retroperitoneal hematoma with initial concern for active extravasation at OSH. CTA here stable without active extravasation. Hgb and vital signs remain stable. IR recommending conservative management for now. S/p IV vitamin K and FFP x2. - Monitor CBC q12h, active T&S, consented - CTA if Hgb drops or vital sign changes - Hold warfarin Assessment & Plan (08/27/2024 9:38 PM CDT): Patient presenting with large R retroperitoneal hematoma with initial concern for active extravasation at OSH. CTA here stable without active extravasation. Hgb and vital signs remain stable. IR recommending conservative management for now. S/p IV vitamin K and FFP x2. - Monitor CBC q12h, active T&S, consented - CTA if Hgb drops or vital sign changes - Hold warfarin Anemia due to folic acid deficiency 08/25/2024 Iron deficiency 08/25/2024 Acute diastolic congestive heart failure 025 Assessment & Plan (08/31/2024 7:23 AM CDT): Noted to have HFpEF during recent admission. Is on home lasix 20 mg daily. - Holding home lasix - Consider further outpatient optimization Assessment & Plan (08/30/2024 7:21 AM CDT): Noted to have HFpEF during recent admission. Is on home lasix 20 mg daily. - Holding home lasix - Consider further outpatient optimization Assessment & Plan (08/29/2024 11:56 AM CDT): Noted to have HFpEF during recent admission. Is on home lasix 20 mg daily. - Holding home lasix - Consider further outpatient optimization Assessment & Plan (08/28/2024 8:35 AM CDT): Noted to have HFpEF during recent admission. Is on home lasix 20 mg daily. - Holding home lasix - Consider further outpatient optimization Assessment & Plan (08/27/2024 9:38 PM CDT): Noted to have HFpEF during recent admission. Is on home lasix 20 mg daily. - Continue home lasix - Consider further outpatient optimization Streptococcal bacteremia 07/12/2024 PAD (peripheral artery disease) 01/24/2023 Skin tags, multiple acquired 03/23/2021 Assessment & Plan (03/23/2021 1:48 PM PACKAGE DRIER): Multiple skin tags, gluteal, but not anorectal, [...] daily Assessment & Plan (03/23/2021 1:49 PM PACKAGE DRIER): Stable, well controlled, continue metoprolol 25 mg BID fo blood pressure and rate control Assessment & Plan (09/06/2020 12:53 PM CDT): Stable, at target, will continue to monitor Stage 3b chronic kidney disease 01/27/2020 Assessment & Plan (08/31/2024 7:23 AM CDT): - Cr currently at baseline, continue to monitor Assessment & Plan (08/30/2024 7:21 AM CDT): - Cr currently at baseline, continue to monitor Assessment & Plan (08/29/2024 11:56 AM CDT): - Cr currently at baseline, continue to monitor Assessment & Plan (08/28/2024 7:47 AM CDT): - Cr currently at baseline, continue to monitor Assessment & Plan (08/27/2024 9:38 PM CDT): - Cr currently at baseline, continue to monitor Assessment & Plan (01/05/2024 8:39 AM CDT): [...] pressure Assessment & Plan (03/30/2021 4:05 PM PACKAGE DRIER): Stable, well controlled; GFR is stable around 37-38 will continue to monitor with regular checks of CMP as well as bone Metabolic panel continue with vitamin-D 51179 units weekly Assessment & Plan (09/06/2020 12:55 PM CDT): Stable, will coninue to monitor, control blood pressure Chronic stasis dermatitis 05/03/2019 Assessment & Plan (09/21/2024 8:44 PM CDT): Thickening of skin; start triamcinolone topical for skin inflammation Assessment & Plan (07/15/2024 5:02 PM PACKAGE DRIER): Not controlled, continues to have significant peripheral edema; thickening of skin Legs are wrapped today Left leg appears healthy, some erythema and warmth of right leg Continue furosemide 20 mg b.i.d. Assessment & Plan (01/01/2023 1:18 PM CDT): Continues to have significant dermatitis, with thickening of skin; consistent with elephantiasis nostras verruciformis; Patient also has breakdown of anterior right ankle; likely due to prior knee brace Concern for infection, start Augmentin plus doxycycline; referral to wound care clinic for management of extensive ulceration of superficial skin Cellulitis of lower extremity 05/03/2019 Assessment & Plan (08/31/2024 7:23 AM CDT): Hospitalized at OSH with Strep pyogenes bacteremia and + from the wound culture. Completed IV antibiotics and was completing an additional 7-days of PO levaquin. Patient notes improvement with Levaquin and photo from media tab improved. - CTX 08/27-08/29 given initial BCx with 1/2 growing staph epi (likely contaminant) - Restarted Levaquin 08/29 after repeat BCX with no growth at 24 hours Assessment & Plan (08/30/2024 7:21 AM CDT): Hospitalized at OSH with Strep pyogenes bacteremia and + from the wound culture. Completed IV antibiotics and was completing an additional 7-days of PO levaquin. Patient notes improvement with Levaquin and photo from media tab improved. - CTX 08/27-08/29 given initial BCx with 1/2 growing staph epi (likely contaminant) - Restarted Levaquin 08/29 after repeat BCX with no growth at 24 hours Assessment & Plan (08/29/2024 11:56 AM CDT): Hospitalized at OSH with Strep pyogenes bacteremia and + from the wound culture. Completed IV antibiotics and was completing an additional 7-days of PO levaquin. Patient notes improvement with Levaquin and photo from media tab improved. - CTX 08/27-08/29 given initial BCx with 1/2 growing staph epi (likely contaminant) - Restarted Levaquin 08/29 after repeat BCX with no growth at 24 hours Assessment & Plan (08/28/2024 7:47 AM CDT): Hospitalized at OSH with Strep pyogenes bacteremia and + from the wound culture. Completed IV antibiotics and was completing an additional 7-days of PO levaquin. Patient notes improvement with Levaquin and photo from media tab improved. - Hold Levaquin. Continue CTX. Assessment & Plan (08/27/2024 9:38 PM CDT): Hospitalized at OSH with Strep pyogenes bacteremia and + from the wound culture. Completed IV antibiotics and was completing an additional 7-days of PO levaquin. Patient notes improvement with Levaquin and photo from media tab improved. - Continue Levaquin (estimated end date: 08/31) Assessment & Plan (07/15/2024 5:02 PM PACKAGE DRIER): Not well controlled; left leg appears improving; right leg had erythema and warmth on exam; continue Keflex 500 mg t.i.d.; furosemide 20 mg b.i.d. for peripheral edema Silvadene and honey for treatment of open wounds; continues to follow with home nursing for wound care Assessment & Plan (05/03/2019 6:19 PM PACKAGE DRIER): Likely caused by break in skin from chronic stasis dermatitis. Management per critical care. Obstructive sleep apnea 09/29/2017 Assessment & Plan (01/01/2023 1:21 PM CDT): Stable, not well controlled, no use CPAP; no current devices Patient reports she wakes multiple times at night to go to the bathroom Lymphedema of both lower extremities Assessment & Plan (09/21/2024 8:44 PM CDT): Not well controlled; significant lymphedema with thickening of skin; patient has several scabbed over sores; no evidence of infection or cellulitis Will start topical treatments to reduce inflammation, skin thickening and risk of infection Referral to wound management and for management Assessment & Plan (01/01/2023 1:20 PM CDT): [...] today Assessment & Plan (03/23/2021 1:51 PM PACKAGE DRIER): Not well contolled; continues to have edema [...] grandchildren Assessment & Plan (03/23/2021 1:51 PM PACKAGE DRIER): Not well contolled; had recent weight gain due to stress eating from loss of brother -encourage portion control and return to appropriate diet Assessment & Plan (09/06/2020 12:53 PM CDT): Has been making changes in diet, granddaughter helps with meals -limited ability to exercise due to pain and history of hypoxia. Resolved Problems Problem Noted Date Diagnosed Date Resolved Date Metabolic encephalopathy 11/12/202410/2024 Sepsis 11/12/2024 11/14/2024 Acute hypoxemic respiratory failure 08/27/2024 09/21/2024 Assessment & Plan (08/31/2024 7:23 AM CDT): Patient noted to be on 2L NC at time of interview although O2 saturations >97%. Recent COVID diagnosis, but patient did not require oxygen on discharge. She denies shortness of breath. Anemia may be contributing. Also with some atelectasis on CT. - Wean oxygen as tolerated for SpO2 >92% - Encourage pulmonary hygiene Assessment & Plan (08/30/2024 7:21 AM CDT): Patient noted to be on 2L NC at time of interview although O2 saturations >97%. Recent COVID diagnosis, but patient did not require oxygen on discharge. She denies shortness of breath. Anemia may be contributing. Also with some atelectasis on CT. - Wean oxygen as tolerated for SpO2 >92% - Encourage pulmonary hygiene Assessment & Plan (08/29/2024 11:56 AM CDT): Patient noted to be on 2L NC at time of interview although O2 saturations >97%. Recent COVID diagnosis, but patient did not require oxygen on discharge. She denies shortness of breath. Anemia may be contributing. Also with some atelectasis on CT. - Wean oxygen as tolerated for SpO2 >92% - Encourage pulmonary hygiene Assessment & Plan (08/28/2024 7:47 AM CDT): Patient noted to be on 2L NC at time of interview although O2 saturations >97%. Recent COVID diagnosis, but patient did not require oxygen on discharge. She denies shortness of breath. Anemia may be contributing. Also with some atelectasis on CT. - Wean oxygen as tolerated for SpO2 >92% - Encourage pulmonary hygiene Assessment & Plan (08/27/2024 8:40 PM CDT): Patient noted to be on 2L NC at time of interview although O2 saturations >97%. Recent COVID diagnosis, but patient did not require oxygen on discharge. She denies shortness of breath. Anemia may be contributing. Also with some atelectasis on CT. - Wean oxygen as tolerated for SpO2 >92% - Encourage pulmonary hygiene Cellulitis of lower extremit y, unspecified laterality 08/17/2024 09/14/2024 Lateral epicondylitis of right elbow 03/23/2021 01/05/2024 Assessment & Plan (03/23/2021 1:47 PM PACKAGE DRIER): New onset pain, likely epicondylitis, will give home exercises, if no impovement then consider for referral to PT Anemia of chronic disease 01/27/2020 Assessment & Plan (03/30/2021 4:04 PM PACKAGE DRIER): resolving bylast CBC, may not be due to chronic kidney disease; will continue to monitor with regular CBCs Assessment & Plan (08/22/2020 10:51 AM CDT): Recheck CBC today, continue to monitor Sepsis with acute organ dysfunction 05/03/2019 08/22/2020 Assessment & Plan (05/03/2019 6:23 PM PACKAGE DRIER): Due to UTI with likely bilateral cellulitis superimposed on stasis dermatitis. Lactate elevated at 3.4 on arrival and has now increased to 4.5. Management per critical care. Atrial fibrillation with RVR 05/03/2019 09/14/2024 Assessment & Plan (08/31/2024 8:31 AM CDT): - CHADSVASC score: 4 - Continue home diltiazem - Hold home warfarin given hematoma - Cardiology c/s, recommend AC to be restarted in outpatient setting by PCP in 2-4 weeks Assessment & Plan (08/30/2024 8:59 AM CDT): - CHADSVASC score: 4 - Continue home diltiazem - Hold home warfarin given hematoma - Consult cardiology to discuss other options of AC vs. when to safely restart warfarin Assessment & Plan (08/29/2024 11:56 AM CDT): - Continue home diltiazem - Hold home warfarin given hematoma Assessment & Plan (08/28/2024 7:47 AM CDT): - Continue home diltiazem - Hold home warfarin given hematoma Assessment & Plan (08/27/2024 9:38 PM CDT): - Continue home diltiazem - Hold home warfarin given hematoma Assessment & Plan (01/05/2024 8:38 AM CDT): [...] week Assessment & Plan (03/23/2021 1:49 PM PACKAGE DRIER): Stable, well controlled, rate controlled No significant bleeding or bruising; conitnue on warfarin fo anticoagulation Assessment & Plan (09/06/2020 12:51 PM CDT): Stable, well controlled -restart metoprolol at 25 mg to reduce side effects but allow for rate control -continue Warfarin, will follow INR and adjust dose as needed Assessment & Plan (05/03/2019 6:22 PM PACKAGE DRIER): On warfarin at home. Amiodarone drip started, management per critical care. Prepatellar bursitis of left knee 01/05/2024 COVID-19 virus infection Encounters Date Type Department Care Team Description 01/24/2025 6:51 PM CDT Emergency [facility] Emergency Department [address] [place] [address] 01/19/2025 1:00 PM CDT Home Care Visit [address] [place] [address] Babita Ritter, FABRICIO SN OASIS DISCHARGE 01/11/2025 Telephone [facility] [address] [phone] Brian Crenshaw MD Appointment Request 01/08/2025 2:00 PM CDT Home Care Visit [address] [place] [address] Grupo Lay RN SN HOME VISIT 01/05/2025 Telephone [facility] Scheduling [facility] [place] [address] Resource, Homecare Scheduling 01/04/2025 2:00 PM CDT Orders Only [facility] [address] [place] [address] 01/03/2025 1:30 PM CDT Home Care Visit [address] [address] [address] [place] [address] Babita Ritter, FABRICIO SN HOME VISIT 01/03/2025 Anticoagulation Telephone Call [facility] [address] [phone] Maddi Valero RN Chronic anticoagulation (Primary Dx) 12/29/2024 Telephone [facility] [address] [phone] Brian Crenshaw MD Appointment Request 12/28/2024 10:30 AM CDT Home Care Visit [address] [place] [address] Ailin Mccurdy, FABRICIO SN HOME VISIT 12/28/2024 Anticoagulation Telephone Call [facility] [address] [phone] Maddi Valero RN Chronic anticoagulation (Primary Dx) 12/28/2024 Home Care Visit [address] [address] [place] [address] Ailin Mccurdy, RN TELEPHONE ENCOUNTER 12/28/2024 Telephone [facility] [address] [phone] Brian Crenshaw MD Test Results 12/23/2024 1:00 PM CDT Home Care Visit [address] [address] [place] [address] Cinthya Elkins RN SN HOME VISIT 12/20/2024 10:00 AM CDT Home Care Visit [address] [address] [place] [address] Cinthya Elkins RN SN HOME VISIT 12/20/2024 Anticoagulation Telephone Call [facility] [address] [phone] Maddi Valero RN Chronic anticoagulation (Primary Dx) 12/20/2024 Telephone [facility] [address] [phone] Brian Crenshaw MD Test Results 12/18/2024 11:00 AM CDT Home Care Visit [address] [place] [address] Lou Dill RN SN HOME VISIT 12/16/2024 Home Care Visit [address] [place] [address] Ailin Mccurdy, RN TELEPHONE ENCOUNTER 12/14/2024 2:00 PM CDT Orders Only [facility] [address] [place] [address] 12/13/2024 1:15 PM CDT Home Care Visit [address] [place] [address] Grace Starks, FABRICIO SN HOME VISIT 12/13/2024 Anticoagulation Telephone Call [facility] [place] [address] [place] [phone] Maddi Valero RN Chronic anticoagulation (Primary Dx) 12/13/2024 Telephone [facility] [place] [address] [place] [phone] Brian Crenshaw MD Medical Question/Miscellaneou s 12/13/2024 ACO Outreach [facility] Organization [address] [place] [phone] Roxy Joshi RN 12/11/2024 9:30 AM CDT Home Care Visit [address] [place] [address] Grupo Lay RN SN HOME VISIT 12/07/2024 3:30 PM CDT Home Care Visit [address] [address] [place] [address] Babita Ritter, FABRICIO SN HOME VISIT 11/30/2024 1:45 PM CDT Orders Only [facility] [address] [place] [phone] Lymphedema (Primary Dx) 11/30/2024 Home Care Visit [address] [place] [address] Janeth Rose, RN TELEPHONE ENCOUNTER 11/30/2024 Home Care Visit [address] [place] [address] Ana María Sharpe, FABRICIO SN TRIAGE ENCOUNTER 11/30/2024 Home Care Visit [address] [place] [address] Babita Ritter RN CARE CONFERENCE 11/25/2024 [facility] Post Discharge Follow up phone call [facility] [address] [place] [phone] Gabbi Love 11/25/2024 Home Care Visit [address] [place] [address] Janeth Rose, RN TELEPHONE ENCOUNTER 11/23/2024 2:15 PM CDT Orders Only [facility] [address] [place] [address] 11/23/2024 Home Care Visit [address] [place] [address] Janeth Rose, RN TELEPHONE ENCOUNTER 11/23/2024 Plan of Care Documentation [address] [place] [address] 11/22/2024 1:00 PM CDT Home Care Visit [address] [place] [address] Khloe Yeh, FABRICIO SN OASIS START OF CARE 11/22/2024 Home Care Visit [address] [place] [address] Haley Jarrett, FABRICIO TELEPHONE ENCOUNTER 11/21/2024 Home Care Visit [address] [place] [address] Haley Jarrett, FABRICIO TELEPHONE ENCOUNTER 11/20/[address] [place] [address] Cinthya Young, FABRICIO [facility] 11/20/2024 Telephone [facility] [address] [place] [address] Cinthya Young, FABRICIO [facility] 11/18/2024 Telephone [facility] [address] [place] [address] Cinthya Young, RN [facility] 11/17/2024 Telephone [facility] [address] [phone] Wesley Obregon MD Hosptial follow up 11/16/2024 10:30 AM CDT Orders Only [facility] [address] [place] [phone] Lymphedema (Primary Dx); Ulcer of lower extremity, limited to breakdown of skin, unspecified laterality (HCC) 11/16/2024 Telephone [facility] [address] [phone] Shannon Cerna MA STACI Questions 11/16/2024 [facility] Post Discharge Follow up phone call [facility] [address] [place] [phone] Gbabi Love 11/12/2024 2:45 PM CDT - 11/15/2024 5:55 PM CDT Hospital Encounter [facility] IMU [address] [place] [address] Susanna Savage MD Fasick, Victoria Rose, DO Bross, Veena Whitman MD Sepsis, due to unspecified organism, unspecified whether acute organ dysfunction present (HCC) (Primary Dx); Wound infection; Leukocytosis, unspecified type; Lymphoproliferative disorder (HCC); Atrial fibrillation, unspecified type (HCC); Metabolic encephalopathy; Cellulitis of left lower extremity; Generalized weakness; Chronic atrial fibrillation (HCC); Stage 3b chronic kidney disease (HCC); Class 3 severe obesity due to excess calories with serious comorbidity and body mass index (BMI) of 45.0 to 49.9 in adult; Reduced mobility; Bacteremia; Sepsis due to Streptococcus pyogenes (HCC); Cellulitis of right lower extremity Discharge Disposition: Discharge to home or self care 11/12/2024 2:20 PM CDT - 11/12/2024 11:59 PM CDT Hospital Encounter [facility]ILL[facility] Emergency, Room R Discharge Disposition: Discharge to home or self care from Last 3 Months Immunizations Immunization Administration Dates Next Due Influenza, Quadrivalent, Hig h Dose, Preservative Free, Intrr 04/15/2022,03/23/2021 Influenza, Quadrivalent, Spl it, Preservative Free, Intramuscular 03/12/2020,05/09/2019 Influenza, Trivalent, High D ose, Split, Preservative Free, Intramuscular 12/26/2023 Influenza, Unspecified 02/09/2023(Deferred: Arlene ent Refused) Pfizer SARS-CoV-2 Monovalent Vaccination (12+ Yrs) PURPLE 08/05/2020,07/13/2020 Pneumococcal Conjugate PCV 13 08/22/2020 Pneumococcal Conjugate Pcv20 12/27/2021 Tdap 11/15/2024,08/22/2020 ZOSTER Recombinant 06/11/2024,11/19/2023 Surgical History Surgery Date Site/Laterality Comments HYSTERECTOMY ANKLE SURGERY FOOT SURGERY APPENDECTOMY SECTION 07/10/1977 - 08/09/1977 BREAST BIOPSY 01/31/2021 Right Medical History Medical History Date Comments Atrial fibrillation (HCC) Morbid obesity (HCC) Degenerative disorder of [...] materials from doctor or pharmacy Never 01/19/2025 [facility] Utilities Answer Date Recorded In the past 12 months has th e Your Office Agent, gas, oil, or water [employer] threatened to shut off services in your [...] often do you attend chur ch or shinto services? 1 to 4 times per year 11/15/2024 Do you belong to any clubs o r organizations such as baptism groups, unions, fraternal or athletic groups, or [...] medical appointments or from getting medications? No 07/0 11/2024 In the past 12 months, has [...] any time in the past 12 m [facility], were you homeless or living in a retirement (including now)? No 11/15/2024 Personal Safety Answer [...] on file Legal Sex Female 11:37 AM PACKAGE DRIER Gender Identity Not on file Sexual Orientation [...] Mass Index 50.21 01/24/2025 6:59 PM CDT Plan of Treatment Health Maintenance Due Date Last Done Comments Breast Cancer Screening-Mammogram 06/20/2022 06/20/2021, 10/26/2020, 09/22/2020 Osteoporosis Screening-Bone Density Scan 09/22/2022 09/22/2020 Colon Cancer Screening-DNA Stool 09/12/2023 09/12/19 21 Well Visit 65+ 01/04/2025 01/05/2024, 12/11, 12/27/2021 Influenza Vaccine (#1) 2025 , 04/15/2022, 03/23/2021, Additional history exists Depression Screening 09/21/2025 09/21/2024, 08/27/2024, 01/05/2024, Additional history exists Fall Risk Assessment 11/15/2025 11/15/2024, 09/21/2024, 01/05/2024, Additional history exists DTaP/Tdap/Td Vaccine (3 - Td or Tdap) 11/15/2034 11/15/2024, 08/22/2020 Covid-19 Vaccine Discontinued 08/05/2020, 07/13/2020 Hepatitis C Screening Completed 08/22/2020 Colon Cancer Screening-FIT Discontinued 09/11/2020 Pneumococcal vaccine 65+ Completed 12/27/2021, 08/10 Hepatitis B Screening Completed 01/05/2024 Zoster Vaccine Completed 06/11/2024, 11/19/2023 Medical Devices Implanted Type Area Doll Repairer Device Identifier Shelf Expiration Date Model / Serial / Lot Bard Peripheral Vascular [id number] Ultraclip Bard 17ga 10cm 2 Trigger Permanent Ultrasound - [id number] - [id number] Implanted:Qty: 1 on 01/31/2021 by Paco Herring MD at [facility] Breast Right: Breast Bard Peripheral Vascular 11/07/2023 [id number] / Description:Implanted Right Breast 11:00 area 7 cmfn Procedures Procedure Name Priority Date/Time Associated Diagnosis Comments POCT PROTHROMBIN TIME/INR Routine 01/03/2025 2:50 PM CDT POCT PROTHROMBIN TIME/INR Routine 12/28/2024 10:40 AM CDT POCT PROTHROMBIN TIME/INR Routine 12/20/2024 3:26 PM CDT POCT PROTHROMBIN TIME/INR Routine 12/13/2024 4:30 PM CDT PROTIME-INR Routine 12/13/2024 TRANSTHORACIC ECHO (TTE) COMPLETE W DOPPLER/CF WO CONTRAST Routine 11/15/2024 9:48 AM CDT EGFR Routine 11/15/2024 3:10 AM CDT PROTIME-INR Routine 11/15/2024 3:10 AM CDT CREATININE Routine 11/15/2024 3:10 AM CDT EGFR Routine 11/14/2024 10:18 AM CDT CBC WITHOUT DIFFERENTIAL Routine 11/14/2024 10:18 AM CDT BASIC METABOLIC PANEL Routine 11/14/2024 10:18 AM CDT EGFR Routine 11/14/2024 4:31 AM CDT PROTIME-INR Routine 11/14/2024 4:31 AM CDT CREATININE Routine 11/14/2024 4:31 AM CDT BLOOD CULTURE Routine 11/13/2024 11:03 AM CDT BLOOD CULTURE Routine 11/13/2024 10:58 AM CDT EGFR Routine 11/13/2024 7:25 AM CDT DIFFERENTIAL AUTO Routine 11/13/2024 7:2 5 AM CDT PROTIME-INR Routine 11/13/2024 7:25 AM CDT PHOSPHORUS Routine 11/13/2024 7:25 AM CDT MAGNESIUM Routine 11/13/2024 7:25 AM CDT COMPREHENSIVE METABOLIC PANEL Routine 11/13/2024 7:25 AM CDT CBC WITH AUTO DIFFERENTIAL Routine 11/13/2024 7:25 AM CDT LIPID PANEL Routine 11/13/2024 7:25 AM CDT TROPONIN T HIGH-SENSITIVITY 6-HOUR Timed 11/12/2024 8:56 PM CDT TROPONIN T HIGH-SENSITIVITY 4-HR Timed 11/12/2024 7:12 PM CDT TROPONIN T HIGH-SENSITIVITY 2-HOUR Timed 11/12/2024 5:23 PM CDT XR CHEST 1 VIEW ED 11/12/2024 4:06 PM CDT BLOOD CULTURE STAT 11/12/2024 3:[address] CHEST ABDOMEN PELVIS WO CONTRAST ED 11/12/2024 3:[address] HEAD WO CONTRAST ED 11/12/2024 3 :49 PM CDT SC CRITICAL CARE ILL/INJURED PATIENT INIT 30-74 MIN Routine 11/12/2024 3:43 PM CDT APTT Routine 11/12/2024 3:11 PM CDT URINALYSIS, MICROSCOPIC ONLY STAT 11/12/2024 3:11 PM CDT PROTIME-INR STAT 11/12/2024 3:11 PM CDT BLOOD CULTURE STAT 11/12/2024 3:11 PM CDT INFLUENZA A/B, RSV, AND COVID-19 PCR STAT 11/12/2024 3:11 PM CDT URINALYSIS AND REFLEX TO MICROSCOPIC AND CULTURE STAT 11/12/2024 3:11 PM CDT PRO B-TYPE NATRIURETIC PEPTIDE Add-On 11/12/2024 2:53 PM CDT EGFR STAT 11/12/2024 2:53 PM CDT TROPONIN T HIGH-SENSITIVITY SERIES (BASELINE, 2HR, 4HR, 6HR) STAT 11/12/2024 2:53 PM CDT DIFFERENTIAL AUTO STAT 11/12/2024 2:5 3 PM CDT SEPSIS LACTATE WITH REFLEX STAT 11/12/2024 2:53 PM CDT COMPREHENSIVE METABOLIC PANEL STAT 11/12/2024 2:53 PM CDT CBC WITH AUTO DIFFERENTIAL STAT 11/12/2024 2:53 PM CDT ECG 12-LEAD STAT 11/12/2024 2:49 PM CDT DIAGNOSTIC MAMMOGRAM BILATERAL W CATINA Schedule Routine, Read Routine (OP Routine) 06/20/2021 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 Mass of upper outer quadrant of right breast DEXA AXIAL SKELETON BONE DENSITY 1 OR MORE SITES Schedule Routine, Read Routine (OP Routine) 09/22/2020 11:06 AM CDT Screening for osteoporosis Age-related osteoporosis without current pathological fracture STOOL DNA COLOGUARD Routine 09/11/2020 9:20 AM CDT Screening for colon cancer HEPATITIS C ANTIBODY Routine 08/22/2020 11:01 AM CDT Stage 3b chronic kidney disease (HCC) from Last 3 Months or Most Recently Relevant to Health Maintenance Results * POCT PT/INR (01/03/2025 2:50 PM CDT) INR, POC 2.70 HH POCT RESULTING LABORATORY Comment:recheck in 4 weeks Blood 01/03/2025 2:50 PM CDT Brian Crenshaw MD POINT OF CARE TEST ORDERA BLES Final Result Performing Organization Address [facility] de Phone Number POCT RESULTING LABORATORY * POCT PT/INR (12/28/2024 10:40 AM CDT) INR, POC 1.20 HH POCT RESULTING LABORATORY Blood 12/28/2024 10:4 0 AM CDT Brian Crenshaw MD POINT OF CARE TEST ORDERA BLES Final Result Performing Organization Address [facility] de Phone Number POCT RESULTING LABORATORY * POCT PT/INR (12/20/2024 3:26 PM CDT) INR, POC 2.00 HH POCT RESULTING LABORATORY Blood 12/20/2024 3:26 PM CDT Brian Crenshaw MD POINT OF CARE TEST ORDERA BLES Final Result Performing Organization Address [facility] de Phone Number POCT RESULTING LABORATORY * POCT PT/INR (12/13/2024 4:30 PM CDT) INR, POC 1.40 HH POCT RESULTING LABORATORY Comment:increased warfarin t o 4mg on Sun Tues THurs sat Blood 12/13/2024 4:30 PM CDT Brian Crenshaw MD POINT OF CARE TEST ORDERA BLES Final Result Performing Organization Address [facility] Co de Phone Number POCT RESULTING LABORATORY * (ABNORMAL) Protime-INR (12/13/2024) INR 1.40(A) 0.90 - 1.10 EXTERNAL LAB Blood 12/13/2024 us Historical Provider LAB BLOOD ORDERABLES Edit ed Result - Final EXTERNAL LAB * TRANSTHORACIC ECHO (TTE) COMPLETE W DOPPLER/CF WO CONTRAST (11/15/2024 9:48 AM CDT) EF Mod BP 59 % CONS SCIMAGE Anatomical Region Laterality Modality Ultrasound 11/15/2024 8:59 AM CDT Narrative 11/15/2024 2:58 PM CDT [address] [address] Echocardiogram Report Patient Name: SINAI DOBBS : 1955 Study Date: 11/15/2024 8:59:21 AM Gender: F Tech: HAND LASTER Location: [id number] Ref Provider: VEENA PARKS Height(Cm): 175 BSA: 2.46 Weight(Kg): 124.7 Quality: Adequate Order Provider: VEENA PARKS PROCEDURES: Echocardiographic Report: Transthoracic echocardiogram with complete 2D, M-Mode, and color Doppler examination. INDICATIONS: Atrial Fibrillation. MEASUREMENTS: 2D/MM Value Range Doppler Value Range EF Teich MM 59.5 % [ 54.0 - 74.0 ] LONNIE Vmax 2.35 cm2 EF Mod BP 59 % [ 54 - 74 ] AV Mean PG 6 mmHg LVIDd MM 5.23 cm [ 3.80 - 5.20 ] AV Peak Ministerio 1.87 m/s [ 1.00 - 1.70 ] LVIDs MM 3.57 cm [ 2.20 - 3.50 ] AV VTI 31.00 cm LVPWd MM 1.11 cm [ 0.60 - 0.90 ] LVOT Diam 2.16 cm IVSd MM 1.19 cm [ 0.60 - 0.90 ] LVOT Peak Ministerio 1.15 m/s [ 0.70 - 1.10 ] LA Dimension MM 4.44 cm [ 2.70 - 3.80 ] LVOT VTI 21.83 cm AoR Diam MM 3.53 cm [ 2.70 - 3.70 ] MV E Peak Ministerio 1.32 m/s [ 0.60 - 1.30 ] ACS MM 1.78 cm MV A Peak Ministerio 0.39 m/s [ 1.00 - 1.20 ] MV Mean PG 4 mmHg MV PHT 50 msec [ 20 - 100 ] MVA 4.40 MV Decel Time 191 msec [ 104 - 258 ] PV Peak Ministerio 1.32 m/s [ 0.40 - 0.80 ] TR Peak Ministerio 2.64 m/s [ 1.00 - 2.80 ] TR Peak PG 28 mmHg RVSP 31.00 mmHg [ 10.00 - 36.00 ] E` 0.07 m/s E/E` 18.26 [ <= 10.00 ] PA Pressure 31.00 mmHg [ 10.00 - 36.00 ] 2D/MM Value Range Doppler Value Range - FINDINGS: Atrial Septum: Normal atrial septum. Left Ventricle: Normal left ventricular systolic function with no focal wall motion abnormalities. Normal left ventricular size. Mild concentric left ventricular hypertrophy. Ejection fraction is measured at 59 %. Left Atrium: There is mild enlargement of left atrium. Right Ventricle: Normal right ventricular size. Normal right ventricular systolic function. Right Atrium: The right atrium is normal in size. Aortic Valve: No evidence of hemodynamically significant aortic stenosis by Doppler. Aortic cusps appear mildly sclerotic. Mitral Valve: Mitral valve leaflets appear mildly thickened. Trivial regurgitation of the mitral valve. Pulmonic Valve: Pulmonic valve not well visualized. No evidence of pulmonic regurgitation. Tricuspid Valve: Normal structure of the tricuspid valve. Normal right ventricular systolic pressure. Trivial regurgitation in the tricuspid valve. Pericardium: Normal pericardium with no significant pericardial effusion. Aorta: Normal aortic root. Sinus of Valsalva is normal. Aortic arch is normal. Descending aorta is normal. IVC: Normal size and normal respiratory collapse consistent with normal right atrial pressure (<5 mmHg). Pulmonary Artery: Pulmonary artery not well visualized. CONCLUSIONS: Normal left ventricular systolic function with no focal wall motion abnormalities. Normal left ventricular size. Mild concentric left ventricular hypertrophy. Ejection fraction is measured at 59 %. Visually the ejection fraction appears close to 50% with global hypokinesis. Normal right ventricular size. Normal right ventricular systolic function. There is mild enlargement of left atrium. Mitral valve leaflets appear mildly thickened. Trivial regurgitation of the mitral valve. No evidence of hemodynamically significant aortic stenosis by Doppler. Aortic cusps appear mildly sclerotic. Normal structure of the tricuspid valve. Normal right ventricular systolic pressure. Trivial regurgitation in the tricuspid valve. Normal pericardium with no significant pericardial effusion. Technically difficult study with suboptimal visualization. Valves in general are poorly visualized. Patient appears to be in atrial fibrillation during this study. Electronically Signed By: Dori Sprague MD 11/15/2024 2:57:32 PM CDT Procedure Note Dori Sprague MD - 11/15/[address] [address] Echocardiogram Report Patient Name: SINAI DOBBS : 1955 Study Date: 11/15/2024 8:59:21 AM Gender: F Tech: HAND LASTER Location: [address] Provider: VEENA PARKS Height(Cm): 175 BSA: 2.46 Weight(Kg): 124.7 Quality: Adequate Order Provider: VEENA PARKS PROCEDURES: Echocardiographic Report: Transthoracic echocardiogram with complete 2D, M-Mode, and color Dopplerexamination. INDICATIONS: Atrial Fibrillation. MEASUREMENTS: 2D/MM Value Range Doppler ValueRange EF Teich MM 59.5 % [ 54.0 - 74.0 ] LONNIE Vmax 2.35cm2 EF Mod BP 59 % [ 54 - 74 ] AV Mean PG 6 mmHg LVIDd MM 5.23 cm [ 3.80 - 5.20 ] AV Peak Ministerio 1.87 m/s[ 1.00 - 1.70 ] LVIDs MM 3.57 cm [ 2.20 - 3.50 ] AV VTI 31.00cm LVPWd MM 1.11 cm [ 0.60 - 0.90 ] LVOT Diam 2.16cm IVSd MM 1.19 cm [ 0.60 - 0.90 ] LVOT Peak Ministerio 1.15 m/s[ 0.70 - 1.10 ] LA Dimension MM 4.44 cm [ 2.70 - 3.80 ] LVOT VTI 21.83cm AoR Diam MM 3.53 cm [ 2.70 - 3.70 ] MV E Peak Ministerio 1.32 m/s[ 0.60 - 1.30 ] ACS MM 1.78 cm MV A Peak Ministerio 0.39 m/s[ 1.00 - 1.20 ] MV Mean PG 4 mmHg MV PHT 50 msec [ 20 - 100 ] MVA 4.40 MV Decel Time 191 msec [ 104 - 258 ] PV Peak Ministerio 1.32 m/s [ 0.40 - 0.80 ] TR Peak Ministerio 2.64 m/s [ 1.00 - 2.80 ] TR Peak PG 28 mmHg RVSP 31.00 mmHg [ 10.00 - 36.00 ] E` 0.07 m/s E/E` 18.26 [ <= 10.00 ] PA Pressure 31.00 mmHg [ 10.00 - 36.00 ] 2D/MM Value Range Doppler ValueRange - FINDINGS: Atrial Septum: Normal atrial septum. Left Ventricle: Normal left ventricular systolic function with no focal wall motionabnormalities. Normal left ventricular size. Mild concentric left ventricular hypertrophy.Ejection fraction is measured at 59 %. Left Atrium: There is mild enlargement of left atrium. Right Ventricle: Normal right ventricular size. Normal right ventricular systolicfunction. Right Atrium: The right atrium is normal in size. Aortic Valve: No evidence of hemodynamically significant aortic stenosis by Doppler.Aortic cusps appear mildly sclerotic. Mitral Valve: Mitral valve leaflets appear mildly thickened. Trivial regurgitation ofthe mitral valve. Pulmonic Valve: Pulmonic valve not well visualized. No evidence of pulmonicregurgitation. Tricuspid Valve: Normal structure of the tricuspid valve. Normal right ventricular systolicpressure. Trivial regurgitation in the tricuspid valve. Pericardium: Normal pericardium with no significant pericardial effusion. Aorta: Normal aortic root. Sinus of Valsalva is normal. Aortic arch is normal.Descending aorta is normal. IVC: Normal size and normal respiratory collapse consistent with normal rightatrial pressure (<5 mmHg). Pulmonary Artery: Pulmonary artery not well visualized. CONCLUSIONS: Normal left ventricular systolic function with no focal wall motionabnormalities. Normal left ventricular size. Mild concentric left ventricular hypertrophy.Ejection fraction is measured at 59 %. Visually the ejection fraction appears close to 50% withglobal hypokinesis. Normal right ventricular size. Normal right ventricular systolicfunction. There is mild enlargement of left atrium. Mitral valve leaflets appear mildly thickened. Trivial regurgitation ofthe mitral valve. No evidence of hemodynamically significant aortic stenosis by Doppler.Aortic cusps appear mildly sclerotic. Normal structure of the tricuspid valve. Normal right ventricular systolicpressure. Trivial regurgitation in the tricuspid valve. Normal pericardium with no significant pericardial effusion. Technically difficult study with suboptimal visualization. Valves ingeneral are poorly visualized. Patient appears to be in atrial fibrillation during this study. Electronically Signed By: Dori Sprague MD 11/15/2024 2:57:32 PM CDT Veena Parks MD CV ECHO PROCEDURES Final Result * (ABNORMAL) eGFR (11/15/2024 3:10 AM CDT) eGFR 37(L) >=60 mL/min/1. 73 m2 Comment: Interpretive Data Reference Interval Normal >/= 90 mL/min/1.73m2 Mildly decreased* 60 - 89 mL/min/1.73m2 Mildly to moderately decreased 45 - 59 mL/min/1.73m2 Moderately to severely decreased 30 - 44 mL/min/1.73m2 Severely decreased 15 - 29 mL/min/1.73m2 Kidney Failure < 15 mL/min/1.73m2 *Relative to young adult level Estimated glomerular filtration rate is determined by the 2020 CKD-EPI equation recommended by the National Kidney Foundation (A Unifying Approach to GFR Estimation: Recommendations of the NKF-ASK Task Force on Reassessing the Inclusion of Race in Diagnosing Kidney Disease, JASN 2020). The CKD-EPI equation should not be used for patients with unstable renal function and has not been validated in children and those over 70. Current interpretive data was last reviewed 2021. Blood 11/15/2024 3:10 AM CDT 11/15/2024 3:50 AM CDT Veena Parks MD LAB BLOOD ORDERABLES Ameena kingston Result Performing Organization Address [facility] Co de Phone Number [facility] ([place]) [address] [facility] [address] * (ABNORMAL) Protime-INR (11/15/2024 3:10 AM CDT) PT 28.9(H) 9.7 - 13.0 sec [facility] ([place]) INR 2.62(H) 0.90 - 1.20 [facility] ([place]) Comment: Interpretive data Oral anticoagulant therapeutic ranges: Venous thromboembolism prophylaxis or treatment: 2.0-3.0 CARDIOLOGY Standard range: 2.0-3.0 High-intensity range: 2.5-3.5 Refer to indication-specific guidelines for appropriate target ranges for prosthetic heart valve replacement. Current interpretive data was last revised on 2019. Blood 11/15/2024 3:10 AM CDT 11/15/2024 3:50 AM CDT Veena Parks MD LAB BLOOD ORDERABLES Ameena kingston Result Performing Organization Address [facility] Co de Phone Number [facility] ([place]) [address] [facility] [address] * (ABNORMAL) Creatinine (11/15/2024 3:10 AM CDT) Creatinine 1.52(H) 0.60 - 1.10 mg/dL Blood 11/15/2024 3:10 AM CDT 11/15/2024 3:50 AM CDT Veena Parks MD LAB BLOOD ORDERABLES Ameena l Result Performing Organization Address [facility] Co de Phone Number [facility]AT BLUNT ([place]) [address] [facility] [place] [address] * (ABNORMAL) eGFR (11/14/2024 10:18 AM CDT) eGFR 37(L) >=60 mL/min/1. 73 m2 Comment: Interpretive Data Reference Interval Normal >/= 90 mL/min/1.73m2 Mildly decreased* 60 - 89 mL/min/1.73m2 Mildly to moderately decreased 45 - 59 mL/min/1.73m2 Moderately to severely decreased 30 - 44 mL/min/1.73m2 Severely decreased 15 - 29 mL/min/1.73m2 Kidney Failure < 15 mL/min/1.73m2 *Relative to young adult level Estimated glomerular filtration rate is determined by the 2020 CKD-EPI equation recommended by the National Kidney Foundation (A Unifying Approach to GFR Estimation: Recommendations of the NKF-ASK Task Force on Reassessing the Inclusion of Race in Diagnosing Kidney Disease, JASN 2020). The CKD-EPI equation should not be used for patients with unstable renal function and has not been validated in children and those over 70. Current interpretive data was last reviewed 2021. Blood 11/14/2024 10:1 8 AM CDT 11/14/2024 10:54 AM CDT Veena Parks MD LAB BLOOD ORDERABLES Ameena l Result Performing Organization Address City/[facility]/ZIP Co de Phone Number [facility] ([place]) [address] [facility] [place] [address] * (ABNORMAL) CBC without differential (11/14/2024 10:18 AM CDT) WBC 4.24 3.80 - 9.90 K/cumm Hgb 10.3(L) 11.9 - 15.5 g/dL [facility] ([place]) Hct 34.6(L) 35.6 - 45.5 % [facility] ([place]) Plt 170 150 - 400 K/cumm [facility] ([place]) MPV 11.0 9.1 - 12.3 fL [facility] ([place]) RBC 3.89(L) 3.90 - 5.20 M/cumm [facility] ([place]) MCV 88.9 81.3 - 96.4 fL [facility] ([place]) MCH 26.5(L) 27.1 - 33.3 pg [facility] ([place]) MCHC 29.8(L) 32.3 - 35.7 g/dL [facility] ([place]) RDW CV 14.1 11.1 - 14.9 % [facility] ([place]) RDW SD 45.6 35.7 - 48.1 fL [facility] ([place]) NRBC abs 0.00 0.00 - 0.01 K/cumm [facility] ([place]) Blood 11/14/2024 10:1 8 AM CDT 11/14/2024 10:54 AM CDT us Veena Parks MD LAB BLOOD ORDERABLES Ameena kingston Result [facility] ([place] [address] [facility] [place] [address] * (ABNORMAL) Basic metabolic panel (11/14/2024 10:18 AM CDT) Sodium 137 135 - 145 mmol/L Potassium, pl 3.6 3.3 - 4.9 mmol/L [facility] ([place]) Chloride 106 97 - 110 mmol/L [facility] ([place]) CO2 21(L) 22 - 32 mmol/L [facility] ([place]) Anion gap 11 2 - 15 mmol/L [facility] ([place]) BUN 19 6 - 25 mg/dL [facility] ([place]) Creatinine 1.53(H) 0.60 - 1.10 mg/dL [facility] ([place]) Glucose 141 70 - 199 mg/dL RAHAT [facility] ([place]) Comment: Interpretive Data Fasting glucose >/= 126 mg/dl is diagnostic for diabetes. Fasting is defined as no caloric intake for at least 8 hours. Fasting glucose between 100 mg/dl to 125 mg/dl is diagnostic of prediabetes. In a patient with classic symptoms of hyperglycemia or hyperglycemic crisis, a random glucose >/= 200 mg/dl is diagnostic for diabetes. In the absence of unequivocal hyperglycemia, results should be confirmed by repeat testing. The classification and Diagnosis of Diabetes Diabetes Care 202; 46: S19-S40. Current interpretive data was last revised 2022. Calcium 8.7 8.5 - 10.3 mg/dL RAHAT [facility] ([place]) Blood 11/14/2024 10:1 8 AM CDT 11/14/2024 10:54 AM CDT Veena Parks MD LAB BLOOD ORDERABLES Ameena kingston Result RAHAT [facility] ([place]) [address] [facility] [place] [address] * (ABNORMAL) eGFR (11/14/2024 4:31 AM CDT) eGFR 36(L) >=60 mL/min/1. 73 m2 Comment: Interpretive Data Reference Interval Normal >/= 90 mL/min/1.73m2 Mildly decreased* 60 - 89 mL/min/1.73m2 Mildly to moderately decreased 45 - 59 mL/min/1.73m2 Moderately to severely decreased 30 - 44 mL/min/1.73m2 Severely decreased 15 - 29 mL/min/1.73m2 Kidney Failure < 15 mL/min/1.73m2 *Relative to young adult level Estimated glomerular filtration rate is determined by the 2020 CKD-EPI equation recommended by the National Kidney Foundation (A Unifying Approach to GFR Estimation: Recommendations of the NKF-ASK Task Force on Reassessing the Inclusion of Race in Diagnosing Kidney Disease, JASN 2020). The CKD-EPI equation should not be used for patients with unstable renal function and has not been validated in children and those over 70. Current interpretive data was last reviewed 2021. Blood 11/14/2024 4:31 AM CDT 11/14/2024 5:39 AM CDT Veena Parks MD LAB BLOOD ORDERABLES Ameena l Result Performing Organization Address City/[facility] Co de Phone Number RA[facility] BL[facility]T ([place]) [address] [facility] [place] [address] * (ABNORMAL) Protime-INR (11/14/2024 4:31 AM CDT) PT 30.6(H) 9.7 - 13.0 sec [facility] INR 2.77(H) 0.90 - 1.20 [facility] ([place]) Comment: Interpretive data Oral anticoagulant therapeutic ranges: Venous thromboembolism prophylaxis or treatment: 2.0-3.0 CARDIOLOGY Standard range: 2.0-3.0 High-intensity range: 2.5-3.5 Refer to indication-specific guidelines for appropriate target ranges for prosthetic heart valve replacement. Current interpretive data was last revised on 2019. Blood 11/14/2024 4:31 AM CDT 11/14/2024 5:39 AM CDT Veena Parks MD LAB BLOOD ORDERABLES Ameena l Result Performing Organization Address [facility] Co de Phone Number [facility] ([place]) [address] [facility] [place] [address] * (ABNORMAL) Creatinine (11/14/2024 4:31 AM CDT) Creatinine 1.54(H) 0.60 - 1.10 mg/dL Blood 11/14/2024 4:31 AM CDT 11/14/2024 5:39 AM CDT Veena Parks MD LAB BLOOD ORDERABLES Ameena l Result Performing Organization Address [facility]/ZIP Co de Phone Number RAHAT BL[facility]T ([place]) [address] [facility] [place] [address] * Blood culture Blood (11/13/2024 11:03 AM CDT) Report Final Report: No growth Comment:Testing performed by : [facility], [address] [place] [address] Blood 11/13/2024 11:0 3 AM CDT 11/13/2024 2:28 PM CDT Narrative [facility]T ([place]) - 11/17/2024 4:00 PM CDT From a different site than #1. Collection->Peripheral 1. Blood cultures are incubated for 4 days on a continuously monitored blood culture system. The first report of a negative culture is issued within 24 hours of receipt of the specimen in the laboratory. 2. Positive culture results are reported as soon as they are detected. 3. The most important factor for detection of microbes in the setting of bloodstream infection is the volume of blood submitted for culture. Failure to collect an optimal blood volume can result in false negative blood cultures. 4. For pediatric patients, the recommended blood volume to collect follows a weight based strategy. See the electronic test catalog for collection instructions. 5. For positive blood cultures, a rapid molecular test may be performed for organism identification using the [employer] blood culture identification panel for gram positive (BCID-GP) and gram negative (BCID-GN) organisms. This nucleic acid amplification test detects microbial DNA in positive blood culture broth. This assay has been cleared by the [place] Food and Drug Administration and its performance characteristics have been verified by the [facility]. For questions about this culture, contact the Microbiology Laboratory at [phone]. Interpretive data was last revised on 24. us Veena Parks MD LAB MICROBIOLOGY - GENERA L ORDERABLES Final Result [facility] ([place]) 1 [facility] [place] [address] * Blood culture Blood (11/13/2024 10:58 AM CDT) Report Final Report: No growth Comment:Testing performed by : [facility], [address] [place]., [address] Blood 11/13/2024 10:5 8 AM CDT 11/13/2024 2:28 PM CDT Narrative [facility] ([place]) - 11/17/2024 4:00 PM CDT Collection->Peripheral 1. Blood cultures are incubated for 4 days on a continuously monitored blood culture system. The first report of a negative culture is issued within 24 hours of receipt of the specimen in the laboratory. 2. Positive culture results are reported as soon as they are detected. 3. The most important factor for detection of microbes in the setting of bloodstream infection is the volume of blood submitted for culture. Failure to collect an optimal blood volume can result in false negative blood cultures. 4. For pediatric patients, the recommended blood volume to collect follows a weight based strategy. See the electronic test catalog for collection instructions. 5. For positive blood cultures, a rapid molecular test may be performed for organism identification using the jerrica ePlex blood culture identification panel for gram positive (BCID-GP) and gram negative (BCID-GN) organisms. This nucleic acid amplification test detects microbial DNA in positive blood culture broth. This assay has been cleared by the [place] Food and Drug Administration and its performance characteristics have been verified by the [facility]. For questions about this culture, contact the Microbiology Laboratory at [phone]. Interpretive data was last revised on 24. us Veena Parks MD LAB MICROBIOLOGY - GENERA L ORDERABLES Final Result [facility] ([place]) 1 [facility] [place] [address] * (ABNORMAL) eGFR (11/13/2024 7:25 AM CDT) eGFR 35(L) >=60 mL/min/1. 73 m2 Comment: Interpretive Data Reference Interval Normal >/= 90 mL/min/1.73m2 Mildly decreased* 60 - 89 mL/min/1.73m2 Mildly to moderately decreased 45 - 59 mL/min/1.73m2 Moderately to severely decreased 30 - 44 mL/min/1.73m2 Severely decreased 15 - 29 mL/min/1.73m2 Kidney Failure < 15 mL/min/1.73m2 *Relative to young adult level Estimated glomerular filtration rate is determined by the 2020 CKD-EPI equation recommended by the National Kidney Foundation (A Unifying Approach to GFR Estimation: Recommendations of the NKF-ASK Task Force on Reassessing the Inclusion of Race in Diagnosing Kidney Disease, JASN 2020). The CKD-EPI equation should not be used for patients with unstable renal function and has not been validated in children and those over 70. Current interpretive data was last reviewed 2021. Blood 11/13/2024 7:25 AM CDT 11/13/2024 8:18 AM CDT Ana María Dwyer DO LAB BLOOD ORDERABLES Fin al Result [facility] ([place]) 1 [facility] [place] [address] * (ABNORMAL) Differential, auto (11/13/2024 7:25 AM CDT) Neutrophil abs 4.85 1.50 - 6.50 K/cumm Imm gran abs 0.03 0.00 - 0.10 K/cumm [facility] ([place]) Lymphocyte abs 0.49(L) 0.80 - 3.30 K/cumm [facility] ([place]) Monocyte abs 0.82(H) 0.20 - 0.80 K/cumm [facility] ([place]) Eosinophil abs 0.01 0.00 - 0.50 K/cumm [facility] ([place]) Basophil abs 0.02 0.00 - 0.10 K/cumm [facility] ([place]) Neutrophil pct 77.9 % [facility] ([place]) Comment: Interpretive Data Percent cell count reference ranges are not reported, since discordance with absolute values may lead to misinterpretation of CBC data. Current Interpretive Data was last revised on 2017. Imm gran pct 0.5 % [facility] ([place]) Comment: Interpretive Data Percent cell count reference ranges are not reported, since discordance with absolute values may lead to misinterpretation of CBC data. Current Interpretive Data was last revised on 2017. Lymphocyte pct 7.9 % [facility] ([place]) Comment: Interpretive Data Percent cell count reference ranges are not reported, since discordance with absolute values may lead to misinterpretation of CBC data. Current Interpretive Data was last revised on 2017. Monocyte pct 13.2 % [facility] ([place]) Comment: Interpretive Data Percent cell count reference ranges are not reported, since discordance with absolute values may lead to misinterpretation of CBC data. Current Interpretive Data was last revised on 2017. Eosinophil pct 0.2 % [facility] ([place]) Comment: Interpretive Data Percent cell count reference ranges are not reported, since discordance with absolute values may lead to misinterpretation of CBC data. Current Interpretive Data was last revised on 2017. Basophil pct 0.3 % [facility] ([place]) Comment: Interpretive Data Percent cell count reference ranges are not reported, since discordance with absolute values may lead to misinterpretation of CBC data. Current Interpretive Data was last revised on 2017. Blood 11/13/2024 7:25 AM CDT 11/13/2024 8:18 AM CDT us Ana María Dwyer DO LAB BLOOD ORDERABLES Fin al Result [facility] ([place]) 1 [facility] [place] [address] * (ABNORMAL) CBC with auto differential (11/13/2024 7:25 AM CDT) WBC 6.22 3.80 - 9.90 K/cumm Hgb 10.4(L) 11.9 - 15.5 g/dL [facility] ([place]) Hct 34.6(L) 35.6 - 45.5 % [facility] ([place]) Plt 160 150 - 400 K/cumm [facility] ([place]) MPV 10.5 9.1 - 12.3 fL [facility] ([place]) RBC 3.88(L) 3.90 - 5.20 M/cumm [facility] ([place]) MCV 89.2 81.3 - 96.4 fL [facility] ([place]) MCH 26.8(L) 27.1 - 33.3 pg [facility] ([place]) MCHC 30.1(L) 32.3 - 35.7 g/dL [facility] ([place]) RDW CV 14.2 11.1 - 14.9 % [facility] ([place]) RDW SD 46.0 35.7 - 48.1 fL [facility] ([place]) NRBC abs 0.00 0.00 - 0.01 K/cumm [facility] ([place]) Blood 11/13/2024 7:25 AM CDT 11/13/2024 8:18 AM CDT Ana María Dwyer DO LAB BLOOD ORDERABLES Sunil al Result Performing Organization Address City/[facility] Co de Phone Number [facility] ([place]) 1 [facility] [place] [address] * (ABNORMAL) Protime-INR (11/13/2024 7:25 AM CDT) PT 24.3(H) 9.7 - 13.0 sec [facility] ([place]) INR 2.21(H) 0.90 - 1.20 [facility] ([place]) Comment: Interpretive data Oral anticoagulant therapeutic ranges: Venous thromboembolism prophylaxis or treatment: 2.0-3.0 CARDIOLOGY Standard range: 2.0-3.0 High-intensity range: 2.5-3.5 Refer to indication-specific guidelines for appropriate target ranges for prosthetic heart valve replacement. Current interpretive data was last revised on 2019. Blood 11/13/2024 7:25 AM CDT 11/13/2024 8:18 AM CDT Veena Parks MD LAB BLOOD ORDERABLES Ameena l Result [facility] ([place]) 1 [facility] [place] [address] * Phosphorus (11/13/2024 7:25 AM CDT) Phosphorus, pl 2.9 2.3 - 4.5 mg/dL Blood 11/13/2024 7:25 AM CDT 11/13/2024 8:18 AM CDT An aMaría Dwyer DO LAB BLOOD ORDERABLES Fin al Result Performing Organization Address City/[facility] Co de Phone Number [facility] ([place]) 1 [facility] [place] [address] * Magnesium (11/13/2024 7:25 AM CDT) Magnesium 2.0 1.4 - 2.5 mg/dL Blood 11/13/2024 7:25 AM CDT 11/13/2024 8:18 AM CDT Ana María Dwyer DO LAB BLOOD ORDERABLES Fin al Result Performing Organization Address City/[facility] Co de Phone Number [facility] ([place]) 1 [facility] [place] [address] * Lipid panel (11/13/2024 7:25 AM CDT) Cholesterol 95 30 - 199 mg/dL Comment: Interpretive Data Ages < or = 19 years Acceptable: <170 mg/dL Borderline high: 170-199 mg/dL High: >or= 200 mg/dL Ages > or = 20 years Desirable: <200 mg/dL Borderline high: 200-239 mg/dL High: >or= 240 mg/dL Literature References: 1. Expert Panel on Integrated Guidelines for Cardiovascular Health and Risk Reduction in Children and Adolescents. Pediatrics 2011;128:S213 2. NCEP Expert Panel. Circulation 2004;110:227 Current Interpretive Data was last revised on 2017. Triglycerides 78 <=149 mg/dL [facility] ([place]) Comment: Interpretive Data Ages < or = 9 years Acceptable: <75 mg/dL Borderline high: 75-99 mg/dL High: >or= 100 mg/dL Ages 10 to 20 years Acceptable: <90 mg/dL Borderline high: 90-129 mg/dL High: >or= 130 mg/dL Ages > or = 20 years Desirable: <150 mg/dL Borderline high: 150-199 mg/dL High: 200-499 mg/dL Very high: >or= 499 mg/dL Literature References: 1. Expert Panel on Integrated Guidelines for Cardiovascular Health and Risk Reduction in Children and Adolescents. Pediatrics 2011;128:S213 2. NCEP Expert Panel. Circulation 2004;110:227 Current Interpretive Data was last revised on 2017. HDL 41 >=40 mg/dL [facility] GIORDANO) Comment: Interpretive Data Ages < or = 19 years Acceptable: >45 mg/dL Borderline low: 40-45 mg/dL Low: <40 mg/dL Ages > or = 20 years Desirable: >or= 60 mg/dL Low: <40 mg/dL Literature References: 1. Expert Panel on Integrated Guidelines for Cardiovascular Health and Risk Reduction in Children and Adolescents. Pediatrics 2011;128:S213 2. NCEP Expert Panel. Circulation 2004;110:227 Current Interpretive Data was last revised on 2017. LDL, calculated 38 <=129 mg/dL [facility] GIORD[facility]) Comment: Interpretive Data Ages < or = 19 years Acceptable: <110 mg/dL Borderline high: 110-129 mg/dL High: >or= 130 mg/dL Ages > or = 20 years Optimal: <100 mg/dL Near optimal: 100-129 mg/dL Borderline high: 130-159 mg/dL High: >160 mg/dL Calculated using the Satinder LDL-C estimating equation. This equation was implemented on 2023. Prior to this date LDL-C was estimated using the Friedewald equation. Literature References: 1. Expert Panel on Integrated Guidelines for Cardiovascular Health and Risk Reduction in Children and Adolescents. Pediatrics 2011;128:S213 2. NCEP Expert Panel. Circulation 2004;110:227 3. Satinder Nuñez al. RAKESH Cardiol. 2020 September 09;5(5):540-548. doi: 10.1001/jamacardio.2020.0013 Current Interpretive Data was last revised on 2023. Non-HDL Cholesterol 54 mg/dL [facility] ([place]) Comment: Interpretive Data Ages < or = 19 years Acceptable: <120 mg/dL Borderline high: 120-144 mg/dL High: >145 mg/dL Ages > or = 20 years When triglycerides are >200 mg/dL, Non-HDL cholesterol is a secondary target of therapy with treatment goals that are 30 mg/dL greater than the LDL cholesterol target. Literature References: 1. Expert Panel on Integrated Guidelines for Cardiovascular Health and Risk Reduction in Children and Adolescents. Pediatrics 2011;128:S213 2. NCEP Expert Panel. Circulation 2004;110:227 Current Interpretive Data was last revised on 2017. Chol/HDL ratio 2 FLORENTIN [facility] ([place]) Blood 11/13/2024 7:25 AM CDT 11/13/2024 8:18 AM CDT Ana María Dwyer DO LAB BLOOD ORDERABLES Fin al Result [facility] ([place]) 1 [facility] [place] [address] * (ABNORMAL) Comprehensive metabolic panel (11/13/2024 7:25 AM CDT) Sodium 139 135 - 145 mmol/L Potassium, pl 3.6 3.3 - 4.9 mmol/L [facility] ([place]) Chloride 108 97 - 110 mmol/L [facility] ([place]) CO2 19(L) 22 - 32 mmol/L [facility] ([place]) Anion gap 12 2 - 15 mmol/L [facility] ([place]) BUN 20 6 - 25 mg/dL [facility] Creatinine 1.59(H) 0.60 - 1.10 mg/dL [facility] ([place]) Glucose 109 70 - 199 mg/dL [facility] ([place]) Comment: Interpretive Data Fasting glucose >/= 126 mg/dl is diagnostic for diabetes. Fasting is defined as no caloric intake for at least 8 hours. Fasting glucose between 100 mg/dl to 125 mg/dl is diagnostic of prediabetes. In a patient with classic symptoms of hyperglycemia or hyperglycemic crisis, a random glucose >/= 200 mg/dl is diagnostic for diabetes. In the absence of unequivocal hyperglycemia, results should be confirmed by repeat testing. The classification and Diagnosis of Diabetes Diabetes Care 2021; 46: S19-S40. Current interpretive data was last revised 2022. Calcium 8.4(L) 8.5 - 10.3 mg/dL [facility] ([place]) Bilirubin, total 0.5 0.1 - 1.2 mg/dL [facility] ([place]) Protein, pl 7.4 6.5 - 8.5 g/dL [facility] ([place]) Albumin 2.9(L) 3.5 - 5.0 g/dL [facility] ([place]) Alk phos 107 40 - 130 Units/L [facility] ([place]) ALT 9 7 - 45 Units/L [facility] ([place]) AST 11 10 - 45 Units/L [facility] ([place]) Blood 11/13/2024 7:25 AM CDT 11/13/2024 8:18 AM CDT us Ana María Dwyer DO LAB BLOOD ORDERABLES Fin al Result [facility] ([place]) 1 [facility] [place] [address] * (ABNORMAL) Troponin T high-sensitivity 6-hour (11/12/2024 8:56 PM CDT) Trop T hs 16(H) <=14 ng/L Comment: Interpretive Data For further hscTnT resources including the diagnostic algorithm and an aid in interpretation, copy and paste this link: [email or web address]/show/[email or web address] Current Interpretive Data last revised 2020. Trop T hs delta 4 ng/L [facility] ([place]) Trop T hs interp Insignificant [facility] ([place]) Blood 11/12/2024 8:56 PM CDT 11/12/2024 8:58 PM CDT us Susanna Savage MD LAB BLOOD ORDERABLE S Final Result Performing Organization Address [facility] Co de Phone Number [facility] ([place]) 1 [facility] [place] [address] * Troponin T high-sensitivity 4-hour (11/12/2024 7:12 PM CDT) Trop T hs 13 <=14 ng/L Comment: Interpretive Data For further hscTnT resources including the diagnostic algorithm and an aid in interpretation, copy and paste this link: [email or web address] Current Interpretive Data last revised 2020. Trop T hs delta 1 ng/L [facility] ([place]) Trop T hs interp Insignificant [facility] ([place]) Blood 11/12/2024 7:12 PM CDT 11/12/2024 7:19 PM CDT Susanna Savage MD LAB BLOOD ORDERABLE S Final Result Performing Organization Address [facility] Co de Phone Number [facility] ([place]) 1 [facility] [place] [address] * (ABNORMAL) Troponin T high-sensitivity 2-hour (11/12/2024 5:23 PM CDT) Trop T hs 17(H) <=14 ng/L Comment: Interpretive Data For further hscTnT resources including the diagnostic algorithm and an aid in interpretation, copy and paste this link: [email or web address] Current Interpretive Data last revised 2020. Trop T hs delta 5 ng/L [facility] ([place]) Trop T hs interp Equivocal [facility] ([place]) Blood 11/12/2024 5:23 PM CDT 11/12/2024 5:47 PM CDT Susanna Savage MD LAB BLOOD ORDERABLE S Final Result Performing Organization Address City/[facility]/ZIP Co de Phone Number [facility] ([place] 1 [facility] [place] [address] * XR Chest 1 Vw Portable (If patient hemodynamically UNstable or UNable to ambulate) (11/12/2024 4:06PM CDT) Anatomical Region Laterality Modality Body, Chest N/A Computed Radiogr aphy 11/12/2024 4:12 PM CDT Narrative 11/12/2024 4:14 PM CDT EXAM DESCRIPTION: XR CHEST 1 VIEW REASON FOR STUDY: general weakness Pt turned off the air conditioning in the home. Last time family heard from her was 8 PM Yesterday. Called because she was confused. The chair Pt was in was soaked from urine and sweat. Home was hot, and Pt's Temp 100 for EMS. Non-Smoker AFIB TECHNIQUE: 1 radiographic view(s) of the chest. COMPARISON: 08/17/2024 FINDINGS: LUNGS: Hazy airspace opacity in the medial right lung base. No large pleural effusion. No evidence of pneumothorax. HEART/MEDIASTINUM: Cardiac silhouette is enlarged, unchanged. Mediastinal and hilar contours appear normal. LINES/TUBES: None. BONES: No acute osseous abnormality. IMPRESSION: Hazy airspace opacity in the right medial lung base, atelectasis versus pneumonia. Unchanged cardiomegaly. THIS IS AN ELECTRONICALLY VERIFIED FINAL REPORT 11/12/2024 4:14 PM - Electronically signed by Star Gurrola M.D. KR: SAUNDRA Report ID: [id number] Reading Location: [id number] Procedure Note Star Gurrola MD - 11/12/2024 EXAM DESCRIPTION: XR CHEST 1 VIEW REASON FOR STUDY: general weakness Pt turned off the air conditioning in the home. Last time family heardfrom her was 8 PM Yesterday. Called because she was confused. The chair Ptwas in was soaked from urine and sweat. Home was hot, and Pt's Temp 100 forEMS. Non-Smoker AFIB TECHNIQUE: 1 radiographic view(s) of the chest. COMPARISON: 08/17/2024 FINDINGS: LUNGS: Hazy airspace opacity in the medial right lung base. No largepleural effusion. No evidence of pneumothorax. HEART/MEDIASTINUM: Cardiac silhouette is enlarged, unchanged.Mediastinal and hilar contours appear normal. LINES/TUBES: None. BONES: No acute osseous abnormality. IMPRESSION: Hazy airspace opacity in the right medial lung base, atelectasis versus pneumonia. Unchanged cardiomegaly. THIS IS AN ELECTRONICALLY VERIFIED FINAL REPORT 11/12/2024 4:14 PM - Electronically signed by Star Gurrola M.D. KR: KR Report ID: [id number] Reading Location: [id number] Susanna Savage MD IMG XR PROCEDURES F inal Result * (ABNORMAL) Blood culture Blood Peripheral (11/12/2024 3:58 PM CDT) [facility] Direct Specimen Exam Molecular Analysis: Streptococcus pyogenes (Group A Streptococcus) detected by jerrica ePlex BCID-GP panel. Streptococcus pyogenes is susceptible to beta-lactam antibiotics and vancomycin. This test does not exclude the possibility of a mixed bacterial infection. Notification of: Streptococcus pyogenes (Group A Streptococci) called to and read back by: Alana Vences MLS on 11/13/2024 07:36:23 by: Prerna Allen MT Test result called to and read back by Vandana Wong RN (IMU) on 11/13/2024 07:48:16 by Alana Vences Comment:Testing performed by : [facility], [address] [facility], [place]., [address] Direct Specimen Exam Stain: Gram Positive Cocci in pairs and chains Time to culture positivity (aerobic media): 10.9 hours Time to culture positivity (anaerobic media): 13.0 hours Notification of: Gram Positive Cocci in pairs and chains called to and read back by: Catarino Perez MT [phone] on 11/13/2024 05:29:50 by: Claire Lemos MT. Notification of: Gram Positive Cocci in pairs and chains called to and read back by: Alberto Salvador RN IMU on 11/13/2024 06:16:00 by: Catarino BLUNT ([place]) Comment:Testing performed by : [facility], [address] [place] [address]., [id number] Report Final Report: Streptococcus pyogenes (Group A Streptococci) (.) [facility] ([place]) Comment:Testing performed by : [facility], [address] [place] [address]., [id number] Organism STREPTOCOCCUS PYOGENES (GROUP A STREPTOCOCCI) [facility] ([place]) Blood (Peripheral) 11/12/2024 3:58 PM CDT 11/12/2024 5:53 PM CDT Narrative [facility] ([place]) - 11/17/2024 7:53 AM CDT From a different site than #1. Draw Blood cultures before administration of Antibiotics Collection->Peripheral 1. Blood cultures are incubated for 4 days on a continuously monitored blood culture system. The first report of a negative culture is issued within 24 hours of receipt of the specimen in the laboratory. 2. Positive culture results are reported as soon as they are detected. 3. The most important factor for detection of microbes in the setting of bloodstream infection is the volume of blood submitted for culture. Failure to collect an optimal blood volume can result in false negative blood cultures. 4. For pediatric patients, the recommended blood volume to collect follows a weight based strategy. See the electronic test catalog for collection instructions. 5. For positive blood cultures, a rapid molecular test may be performed for organism identification using the jerrica ePlex blood culture identification panel for gram positive (BCID-GP) and gram negative (BCID-GN) organisms. This nucleic acid amplification test detects microbial DNA in positive blood culture broth. This assay has been cleared by the [place] Food and Drug Administration and its performance characteristics have been verified by the [facility]. For questions about this culture, contact the Microbiology Laboratory at [phone]. Interpretive data was last revised on 24. Organism Antibiotic Method Susceptibility Streptococcus pyogenes (Grou p A Streptococci) Penicillin (SANJIV) (SANJIV) INTERPRETATION Susceptible Streptococcus pyogenes (Grou p A Streptococci) Ceftriaxone (SANJIV) (SANJIV) INTERPRETATION Susceptible Streptococcus pyogenes (Grou p A Streptococci) Clindamycin (SANJIV) INTERPRETATION Resistant Streptococcus pyogenes (Grou p A Streptococci) Erythromycin (SANJIV) INTERPRETATION Resistant Streptococcus pyogenes (Grou p A Streptococci) Levofloxacin (SANJIV) INTERPRETATION Susceptible Streptococcus pyogenes (Grou p A Streptococci) Linezolid (SANJIV) INTERPRETATION Susceptible Streptococcus pyogenes (Grou p A Streptococci) Vancomycin (SANJIV) INTERPRETATION Susceptible us Susanna Savage MD LAB MICROBIOLOGY - GENERAL ORDERABLES Final Result [facility] [place] 1 [facility] [place] [address] * CT Chest Abdomen Pelvis WO Contrast (11/12/2024 3:50 PM CDT) Anatomical Region Laterality Modality Body N/A Computed Tomogra phy 11/12/2024 3:56 PM CDT Narrative 11/12/2024 4:07 PM CDT EXAM DESCRIPTION: CT CHEST ABDOMEN PELVIS WO CONTRAST REASON FOR STUDY: Sepsis Pt was found today with confusion and fever. Hx of kidney disease, hysterectomy, and appendectomy. TECHNIQUE: CT scan of the chest, abdomen, and pelvis performed without intravenous and without oral contrast using helical scanning technique. Reconstructed coronal and sagittal MPR images reviewed. All images stored on PACS. Automated exposure control was used as a dose optimization technique for this examination. COMPARISON: CT abdomen and pelvis 08/27/2024 FINDINGS: The sensitivity for detection of visceral lesions is diminished without the use of intravenous contrast. CHEST LUNGS: Expiratory phase imaging limits evaluation. No evidence of pneumonia. No suspicious pulmonary nodules within the limits of the exam. The central airways appear clear. PLEURA: No effusion. No pneumothorax. MEDIASTINUM/REMI: No identified masses or abnormal nodes. HEART: Global cardiomegaly. No significant pericardial effusion. CORONARY ARTERY CALCIFICATION: Mild. VASCULATURE CHEST: No thoracic aortic aneurysm. AXILLA: No adenopathy. CHEST WALL: No masses. No subcutaneous air. HARDWARE/LINES/TUBES: None. MUSCULOSKELETAL CHEST: No significant abnormality. ABDOMEN/PELVIS LIVER: Normal size. No identified cystic or solid masses. No cysts. GALLBLADDER: No stones identified. No wall thickening or inflammatory changes. BILE DUCTS: No intrahepatic or extrahepatic ductal dilatation. SPLEEN: The spleen is mildly enlarged, measuring up to 14 cm. No focal lesion. PANCREAS: No identified cystic or solid masses. No significant calcifications. No adjacent inflammation or peripancreatic fluid collections. Pancreatic duct not dilated. ADRENALS: Stable 3.5 cm benign left adrenal adenoma. No right adrenal lesion. KIDNEYS/URINARY TRACT: No identified significant cystic or solid masses. No stones. No hydronephrosis or hydroureter. The urinary bladder is decompressed with a Mast catheter in place. GI: No dilated bowel loops. No obvious wall thickening. The appendix is not seen, surgically absent per history. No significant diverticular disease. PERITONEUM: No ascites or free air. RETROPERITONEUM: 3.9 x 2.8 cm right retroperitoneal hematoma (series 2, image 160). This is significantly decreased in size from the prior exam. REPRODUCTIVE: The uterus is surgically absent. No adnexal mass. VASCULATURE ABDOMEN: No abdominal aortic aneurysm. MUSCULOSKELETAL ABDOMEN PELVIS: No acute finding. LYMPH NODES: Mildly enlarged right inguinal lymph nodes, the largest measuring 1.7 cm in short axis (series 2, image 185). Enlarged right pelvic sidewall 1.6 cm node (172). Enlarged left pelvic sidewall 1.4 cm node (175). 1.1 cm left common iliac chain node (247). 1.2 cm left para-aortic node (109). 1.2 cm pericaval node (127). These appear overall increased in size from the prior exam. IMPRESSION: 1. Mild splint splenomegaly. Mild retroperitoneal and pelvic lymphadenopathy, overall increased in size from the prior exam. This may be secondary to lymphoproliferative disease. 2. Significant interval decrease in size of a right retroperitoneal hematoma. 3. No acute infectious process identified in the chest, abdomen, or pelvis. THIS IS AN ELECTRONICALLY VERIFIED FINAL REPORT 11/12/2024 4:07 PM - Electronically signed by Star Gurrola M.D. KR: SAUNDRA Report ID: [id number] Reading Location: [id number] Procedure Note Star Gurrola MD - 11/12/2024 EXAM DESCRIPTION: CT CHEST ABDOMEN PELVIS WO CONTRAST REASON FOR STUDY: Sepsis Pt was found today with confusion and fever. Hx of kidney disease, hysterectomy, and appendectomy. TECHNIQUE: CT scan of the chest, abdomen, and pelvis performed without intravenous and without oral contrast using helical scanning technique. Reconstructed coronal and sagittal MPR images reviewed. All images storedon PACS. Automated exposure control was used as a dose optimizationtechnique for this examination. COMPARISON: CT abdomen and pelvis 08/27/2024 FINDINGS: The sensitivity for detection of visceral lesions is diminished withoutthe use of intravenous contrast. CHEST LUNGS: Expiratory phase imaging limits evaluation. No evidence of pneumonia. No suspicious pulmonary nodules within the limits of the exam. The central airways appear clear. PLEURA: No effusion. No pneumothorax. MEDIASTINUM/REMI: No identified masses or abnormal nodes. HEART: Global cardiomegaly. No significant pericardial effusion. CORONARY ARTERY CALCIFICATION: Mild. VASCULATURE CHEST: No thoracic aortic aneurysm. AXILLA: No adenopathy. CHEST WALL: No masses. No subcutaneous air. HARDWARE/LINES/TUBES: None. MUSCULOSKELETAL CHEST: No significant abnormality. ABDOMEN/PELVIS LIVER: Normal size. No identified cystic or solid masses. No cysts. GALLBLADDER: No stones identified. No wall thickening or inflammatory changes. BILE DUCTS: No intrahepatic or extrahepatic ductal dilatation. SPLEEN: The spleen is mildly enlarged, measuring up to 14 cm. No focal lesion. PANCREAS: No identified cystic or solid masses. No significant calcifications. No adjacent inflammation or peripancreatic fluidcollections. Pancreatic duct not dilated. ADRENALS: Stable 3.5 cm benign left adrenal adenoma. No right adrenal lesion. KIDNEYS/URINARY TRACT: No identified significant cystic or solid masses.No stones. No hydronephrosis or hydroureter. The urinary bladder is decompressed with a Mast catheter in place. GI: No dilated bowel loops. No obvious wall thickening. The appendix isnot seen, surgically absent per history. No significant diverticular disease. PERITONEUM: No ascites or free air. RETROPERITONEUM: 3.9 x 2.8 cm right retroperitoneal hematoma (series 2, image 160). This is significantly decreased in size from the prior exam. REPRODUCTIVE: The uterus is surgically absent. No adnexal mass. VASCULATURE ABDOMEN: No abdominal aortic aneurysm. MUSCULOSKELETAL ABDOMEN PELVIS: No acute finding. LYMPH NODES: Mildly enlarged right inguinal lymph nodes, the largest measuring 1.7 cm in short axis (series 2, image 185). Enlarged rightpelvic sidewall 1.6 cm node (172). Enlarged left pelvic sidewall 1.4 cm node(175). 1.1 cm left common iliac chain node (247). 1.2 cm left para-aortic node (109). 1.2 cm pericaval node (127). These appear overall increased insize from the prior exam. IMPRESSION: 1. Mild splint splenomegaly. Mild retroperitoneal and pelvic lymphadenopathy, overall increased in size from the prior exam. This maybe secondary to lymphoproliferative disease. 2. Significant interval decrease in size of a right retroperitoneal hematoma. 3. No acute infectious process identified in the chest, abdomen, orpelvis. THIS IS AN ELECTRONICALLY VERIFIED FINAL REPORT 11/12/2024 4:07 PM - Electronically signed by Star Gurrola M.D. 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 TECHNIQUE: Axial images acquired through the brain without intravenous contrast. Images stored on PACS. Automated exposure control was used as a dose optimization technique for this examination. COMPARISON: CT head without contrast dated 11/20/2019 and 05/03/2019. FINDINGS: The examination is degraded by motion related artifact despite repeat attempts. No acute intracranial hemorrhage. Left frontal extra-axial fat containing 1.9 x 1.1 x 1.7 cm lesion as seen on the earliest available CT head dated 05/03/2019. There is partial effacement subjacent sulci. Otherwise the size and configuration of the ventricles sulci normal for the patient's age. There is no hydrocephalus. The basilar cisterns are maintained. The subcortical and periventricular white matter low attenuation in the bilateral cerebral hemispheres is nonspecific but compatible with chronic microvascular ischemic type change in a patient of this age. Right eye cataract surgery. Mucosal thickening in the bilateral ethmoid air cells. There is fullness of the posterior nasopharyngeal soft tissues. The mastoid air cells are predominantly clear. No depressed calvarial fracture. IMPRESSION: 1. No acute intracranial hemorrhage. 2. Left frontal fat containing extra-axial mass as seen on the earliest available CT head dated 05/03/2019. Continued partial effacement subjacent sulci without midline shift. 3. Chronic microvascular ischemic type white-matter changes and additional findings as above. 4. The need for further evaluation with contrast-enhanced MRI as clinically indicated. 5. There is fullness of the posterior pharyngeal soft tissues, more pronounced when compared to the CT head dated 11/20/2019. Recommend direct visualization. THIS IS AN ELECTRONICALLY VERIFIED FINAL REPORT 11/12/2024 4:02 PM - Electronically signed by Kwabena Ortiz D.O. AP: AP Report ID: [id number] Reading Location: [place] [id number] Procedure Note Kwabena Ortiz, DO - 11/12/2024 EXAM DESCRIPTION: CT HEAD WO CONTRAST REASON FOR STUDY: Neuro deficit, persistent/recurrent, WARD MAID neoplasmsuspected, confusion Confusion started today. TECHNIQUE: Axial images acquired through the brain without intravenous contrast. Images stored on PACS. Automated exposure control was used asa dose optimization technique for this examination. COMPARISON: CT head without contrast dated 11/20/2019 and 05/03/2019. FINDINGS: The examination is degraded by motion related artifact despite repeat attempts. No acute intracranial hemorrhage. Left frontal extra-axial fat containing 1.9 x 1.1 x 1.7 cm lesion as seenon the earliest available CT head dated 05/03/2019. There is partialeffacement subjacent sulci. Otherwise the size and configuration of the ventriclessulci normal for the patient's age. There is no hydrocephalus. The basilar cisterns are maintained. The subcortical and periventricular white matter low attenuation in the bilateral cerebral hemispheres is nonspecific but compatible with chronic microvascular ischemic type change in a patient of this age. Right eye cataract surgery. Mucosal thickening in the bilateral ethmoidair cells. There is fullness of the posterior nasopharyngeal soft tissues.The mastoid air cells are predominantly clear. No depressed calvarialfracture. IMPRESSION: 1. No acute intracranial hemorrhage. 2. Left frontal fat containing extra-axial mass as seen on the earliest available CT head dated 05/03/2019. Continued partial effacementsubjacent sulci without midline shift. 3. Chronic microvascular ischemic type white-matter changes andadditional findings as above. 4. The need for further evaluation with contrast-enhanced MRI asclinically indicated. 5. There is fullness of the posterior pharyngeal soft tissues, more pronounced when compared to the CT head dated 11/20/2019. Recommenddirect visualization. THIS IS AN ELECTRONICALLY VERIFIED FINAL REPORT 11/12/2024 4:02 PM - Electronically signed by Kwabena Ortiz D.O. AP: AP Report ID: [id number] Reading Location: [id number] Susanna Savage MD IMG CT PROCEDURES F inal Result * SC CRITICAL CARE ILL/INJURED PATIENT INIT 30-74 MIN (11/12/2024 3:43 PM CDT) Narrative Susanna Savage MD - 11/12/2024 3:43 PM CDT Susanna Savage MD 11/12/2024 5:57 PM Critical Care Performed by: Susanna Savage MD Authorized by: Susanna Savage MD Critical care provider statement: As reflected in the history, physical exam, orders, notes, and/or MDM, I was personally present while the patient was critically ill and provided critical care services for 60 minutes, excluding time involved in separately billable procedures. Critical care was necessary to treat or prevent imminent or life-threatening deterioration of the following condition(s): sepsis Critical care was time spent by me providing the following: continuous telemetry, continuous pulse oximetry, resuscitation with fluids and serial bedside patient exams I provided emergent necessary critical care medicine services to this patient. I ordered and reviewed test results and/or imaging studies. I spent time discussing the management of this critically ill patient with consultants and the medical staff. I spent time discussing the management and therapeutic options for this critically ill patient with the patient themselves or with the appropriate designated surrogate decision-maker. I spent time documenting in the medical record. I admitted this patient to a continuous cardiac monitored bed. Susanna Savage MD IN CLINIC/BEDSIDE O RDERABLES Final Result * Influenza A/B, RSV, and COVID-19 PCR Nasopharyngeal (11/12/2024 3:11 PM CDT) COVID-19 RNA Negative Negative Influenza A RNA Negative Negative [facility] ([place]) Influenza B RNA Negative Negative [facility] ([place]) RSV RNA Negative Negative [facility] ([place]) Comment: Interpretive data: Testing performed by [facility]. This test is performed using the InterValve Xpert Xpress CoV-2/Flu/RSV plus assay. This is a multiplex, real- time reverse transcriptase PCR assay intended for the qualitative detection of nucleic acid from SARS-CoV-2, influenza A, influenza B, and respiratory syncytial virus. This assay has been cleared by the [place] Food and Drug administration. The performance characteristics have been verified by the [facility]. Results must be considered in the clinical context, and a negative result does not rule out infection. Interpretive Data last revised 2023 Nasopharyngeal 11/12/2024 3: 11 PM CDT 11/12/2024 3:18 PM CDT Narrative [facility] ([place]) - 11/12/2024 3:56 PM CDT Is the Patient experiencing symptoms consistent with COVID?->Yes Susanna Savage MD LAB MICROBIOLOGY - GENERAL ORDERABLES Final Result [facility] ([place]) 1 [facility] [place] [address] * (ABNORMAL) Urinalysis reflex to microscopic and culture Urine (11/12/2024 3:11 PM CDT) Color, ur Yellow Yellow Clarity, ur Clear Clear [facility] ([place]) Specific gravity, ur 1.023 1.003 - 1.030 [facility] ([place]) pH, urine 5.5 [facility] ([place]) Comment: Interpretive Data U rine pH is affected by diet, medications, systemic acid-base disturbances, and renal tubular function. pH may affect urinary stone formation. For example, urine pH below 6.0 may help reduce the tendency for calcium phosphate stones and pH greater than 6.0 may reduce the tendency for uric acid stone formation. Source: [facility] Current Interpretive Data was last revised on 2017 Protein, ur ql 1+(A) Negative [facility] ([place]) Glucose, ur ql Negative Negative [facility] ([place]) Ketones, ur Negative Negative [facility] ([place]) Bilirubin, ur Negative Negative [facility] ([place]) Blood, ur Negative Negative [facility] ([place]) Urobilinogen, ur <2.0 <2.0 mg/dL [facility] ([place]) Nitrite, ur Negative Negative [facility] ([place]) Leukocyte esterase, ur Negative Negative [facility] ([place]) UA reflex comment Reflex to microscopic UA will be performed. [facility] ([place]) Urine 11/12/2024 3:11 PM CDT 11/12/2024 3:17 PM CDT Narrative [facility] ([place]) - 11/12/2024 3:21 PM CDT If patient unable to urinate, straight cath us Susanna Savage MD LAB MICROBIOLOGY - GENERAL ORDERABLES Final Result [facility] ([place]) 1 [facility] [place] [address] * (ABNORMAL) Blood culture Blood Peripheral (11/12/2024 3:11 PM CDT) Direct Specimen Exam Stain: Gram Positive Cocci in pairs and chains Gram Positive Cocci in clusters Time to culture positivity (aerobic media): 11.6 hours Time to culture positivity (anaerobic media): 12.4 hours Notification of: Gram Positive Cocci in clusters called to and read back by: Braulio Crocker MLT [phone]) on 11/15/2024 10:36:31 by: Pham Starr MLS Comment:Testing performed by : [facility], [address] [place] [address]., [id number] Report Final Report: Streptococcus pyogenes (Group A Streptococci) For susceptibility results, refer to accession number [id number] on the blood culture from 11/12/2024 Staphylococcus hominis Single blood culture positive for this microorganism. Isolate is a possible contaminant. If a similar isolate is recovered from a second blood culture collected within 3 days of this culture, both will be evaluated and, if determined to be the same species, antimicrobial susceptibility testing will be performed. (.) [facility] ([place]) Comment:Testing performed by : [facility], [address] [place] [address]., [id number] Organism STREPTOCOCCUS PYOGENES (GROUP A STREPTOCOCCI) [facility] ([place]) Organism STAPHYLOCOCCUS HOMINIS [facility] ([place]) Blood (Peripheral) 11/12/2024 3:11 PM CDT 11/12/2024 5:53 PM CDT Narrative [facility] ([place]) - 11/17/2024 7:52 AM CDT Draw Blood cultures before administration of Antibiotics Collection->Peripheral 1. Blood cultures are incubated for 4 days on a continuously monitored blood culture system. The first report of a negative culture is issued within 24 hours of receipt of the specimen in the laboratory. 2. Positive culture results are reported as soon as they are detected. 3. The most important factor for detection of microbes in the setting of bloodstream infection is the volume of blood submitted for culture. Failure to collect an optimal blood volume can result in false negative blood cultures. 4. For pediatric patients, the recommended blood volume to collect follows a weight based strategy. See the electronic test catalog for collection instructions. 5. For positive blood cultures, a rapid molecular test may be performed for organism identification using the jerrica ePlex blood culture identification panel for gram positive (BCID-GP) and gram negative (BCID-GN) organisms. This nucleic acid amplification test detects microbial DNA in positive blood culture broth. This assay has been cleared by the [place] Food and Drug Administration and its performance characteristics have been verified by the [facility]. For questions about this culture, contact the Microbiology Laboratory at [phone]. Interpretive data was last revised on 24. Susanna Savage MD LAB MICROBIOLOGY - GENERAL ORDERABLES Final Result Performing Organization Address City/[facility]/ZIP Co de Phone Number [facility] ([place]) 1 [facility] [employer] [place], [place] [id number] * (ABNORMAL) Urinalysis, microscopic only (11/12/2024 3:11 PM CDT) WBC, ur 0-5 0 - 5 /HPF RBC, ur 0-2 0 - 2 /HPF [facility] ([place]) Epithelial cells, squamous, ur 1-5 0 - 5 /HPF [facility] ([place]) Bacteria, ur Trace(A) [facility] ([place]) Mucous, ur Present(A) [facility] ([place]) Culture Reflex Comment Reflex conditions for urine culture (WBC >10) not met. [facility] ([place]) Urine 11/12/2024 3:11 PM CDT 11/12/2024 3:17 PM CDT Susanna Savage MD LAB URINE ORDERABLE S Final Result Performing Organization Address City/[facility]/ZIP Co de Phone Number [facility] ([place]) 1 [facility] [employer] [place], [place] [id number] * (ABNORMAL) aPTT (11/12/2024 3:11 PM CDT) aPTT 39(H) 28 - 38 sec [facility] ([place]) Comment: Interpretive Data Heparin therapeutic range: 66.0 - 100.0 seconds. Range based on correlation with therapeutic heparin activity range of 0.3 - 0.7 Units/mL. Current interpretive data was last revised on 2023. Blood 11/12/2024 3:11 PM CDT 11/12/2024 4:49 PM CDT Ana María Dwyer DO LAB BLOOD ORDERABLES Fin al Result Performing Organization Address [facility] Co de Phone Number [facility] ([place]) 1 [facility] [place] [address] * (ABNORMAL) Protime-INR (11/12/2024 3:11 PM CDT) PT 26.0(H) 9.7 - 13.0 sec [facility] ([place]) INR 2.37(H) 0.90 - 1.20 [facility] ([place]) Comment: Interpretive data Oral anticoagulant therapeutic ranges: Venous thromboembolism prophylaxis or treatment: 2.0-3.0 CARDIOLOGY Standard range: 2.0-3.0 High-intensity range: 2.5-3.5 Refer to indication-specific guidelines for appropriate target ranges for prosthetic heart valve replacement. Current interpretive data was last revised on 2019. Blood 11/12/2024 3:11 PM CDT 11/12/2024 3:17 PM CDT Susanna Savage MD LAB BLOOD ORDERABLE S Final Result Performing Organization Address [facility] Co de Phone Number [facility] ([place]) 1 [facility] [place] [address] * Troponin T high-sensitivity series (baseline, 2hr, 4hr, 6hr) (11/12/2024 2:53 PM CDT) Trop T hs 12 <=14 ng/L Comment: Interpretive Data For further hscTnT resources including the diagnostic algorithm and an aid in interpretation, copy and paste this link: https://nrl.testcatalog.org/show/hsTrop Current Interpretive Data last revised 2020. Blood 11/12/2024 2:53 PM CDT 11/12/2024 3:16 PM CDT Susanna Savage MD LAB BLOOD ORDERABLE S Final Result [facility] ([place]) [address] [facility] [place] [employer] [address] * Sepsis Lactate w/ Reflex (11/12/2024 2:53 PM CDT) Sepsis Lactate 1.0 0.7 - 2.0 mmol/L Blood 11/12/2024 2:53 PM CDT 11/12/2024 2:56 PM CDT Susanna Savage MD LAB BLOOD ORDERABLE S Final Result Performing Organization Address [facility] Co de Phone Number [facility] ([place]) [address] [facility] [place] [address] * (ABNORMAL) eGFR (11/12/2024 2:53 PM CDT) eGFR 33(L) >=60 mL/min/1. 73 m2 Comment: Interpretive Data Reference Interval Normal >/= 90 mL/min/1.73m2 Mildly decreased* 60 - 89 mL/min/1.73m2 Mildly to moderately decreased 45 - 59 mL/min/1.73m2 Moderately to severely decreased 30 - 44 mL/min/1.73m2 Severely decreased 15 - 29 mL/min/1.73m2 Kidney Failure < 15 mL/min/1.73m2 *Relative to young adult level Estimated glomerular filtration rate is determined by the 2020 CKD-EPI equation recommended by the National Kidney Foundation (A Unifying Approach to GFR Estimation: Recommendations of the NKF-ASK Task Force on Reassessing the Inclusion of Race in Diagnosing Kidney Disease, JASN 202). The CKD-EPI equation should not be used for patients with unstable renal function and has not been validated in children and those over 70. Current interpretive data was last reviewed 2021. Blood 11/12/2024 2:53 PM CDT 11/12/2024 2:56 PM CDT us Susanna Savage MD LAB BLOOD ORDERABLE S Final Result [facility] ([place]) 1 [facility] [place] [address] * (ABNORMAL) Differential, auto (11/12/2024 2:53 PM CDT) Neutrophil abs 15.31(H) 1.50 - 6.50 K/cumm Imm gran abs 0.11(H) 0.00 - 0.10 K/cumm [facility] ([place]) Lymphocyte abs 0.65(L) 0.80 - 3.30 K/cumm [facility] ([place]) Monocyte abs 1.02(H) 0.20 - 0.80 K/cumm [facility] ([place]) Eosinophil abs 0.00 0.00 - 0.50 K/cumm [facility] ([place]) Basophil abs 0.04 0.00 - 0.10 K/cumm [facility] ([place]) Neutrophil pct 89.4 % [facility] ([place]) Comment: Interpretive Data Percent cell count reference ranges are not reported, since discordance with absolute values may lead to misinterpretation of CBC data. Current Interpretive Data was last revised on 2017. Imm gran pct 0.6 % [facility] ([place]) Comment: Interpretive Data Percent cell count reference ranges are not reported, since discordance with absolute values may lead to misinterpretation of CBC data. Current Interpretive Data was last revised on 2017. Lymphocyte pct 3.8 % [facility] ([place]) Comment: Interpretive Data Percent cell count reference ranges are not reported, since discordance with absolute values may lead to misinterpretation of CBC data. Current Interpretive Data was last revised on 2017. Monocyte pct 6.0 % [facility] ([place]) Comment: Interpretive Data Percent cell count reference ranges are not reported, since discordance with absolute values may lead to misinterpretation of CBC data. Current Interpretive Data was last revised on 2017. Eosinophil pct 0.0 % [facility] ([place]) Comment: Interpretive Data Percent cell count reference ranges are not reported, since discordance with absolute values may lead to misinterpretation of CBC data. Current Interpretive Data was last revised on 2017. Basophil pct 0.2 % [facility] ([place]) Comment: Interpretive Data Percent cell count reference ranges are not reported, since discordance with absolute values may lead to misinterpretation of CBC data. Current Interpretive Data was last revised on 2017. Blood 11/12/2024 2:53 PM CDT 11/12/2024 2:56 PM CDT us Susanna Savage MD LAB BLOOD ORDERABLE S Final Result [facility] ([place]) 1 [facility] [place] [address] * (ABNORMAL) Pro B-type natriuretic peptide (11/12/2024 2:53 PM CDT) NT-proBNP 1,666(H) <=300 pg/mL Comment: Interpretive Comments: A. Dyspnea in Acute Care Setting All Ages: < 300 pg/ml, acute heart failure unlikely. < 50 yrs: 300 - 450 pg/ml, further investigation warranted. > 450 pg/ml, acute heart failure likely. 50 - 74 yrs: 300 - 900 pg/ml, further investigation warranted. > 900 pg/ml, acute heart failure likely . > or = 75 yrs: 450 - 1800 pg/ml, further investigation warranted. > 1800 pg/ml, acute heart failure likely. B. Non-acute Setting < 75 yrs < 125 pg/ml, rules out heart failure. > or = 125 pg/ml, further investigation warranted. > or = 75 yrs < 450 pg/ml, rules out heart failure. > or = 450 pg/ml, further investigation warranted. - Knowledge of each individual patient's NT-proBNP range may be more useful than using similar cut-points for every patient. Please note that marked elevations in NT-proBNP levels may be observed in state other than Left Ventricular Congestive Failure, including: acute coronary syndromes, right heart strain/failure (including pulmonary embolism and cor pulmonale), critical illness, renal failure, as well as advanced age. - References: 1. Olinda BURDEN et.al. Eur Heart J. 2006:27:330-337. 2. Xenia RW, Nanette ABRAHAM. J. AM Tita Cardiol: Cardiovasc Imag. 2009;2: 216- 225. Interpretive Data Last Revised Date: 2017. Blood 11/12/2024 2:53 PM CDT 11/12/2024 4:49 PM CDT us Ana María Dwyer DO LAB BLOOD ORDERABLES Fin al Result [facility] ([place]) 1 [facility] [place] [address] * (ABNORMAL) CBC with auto differential (11/12/2024 2:53 PM CDT) WBC 17.13(H) 3.80 - 9.90 K/cumm Hgb 11.0(L) 11.9 - 15.5 g/dL [facility] ([place]) Hct 36.1 35.6 - 45.5 % [facility] ([place]) Plt 214 150 - 400 K/cumm [facility] ([place]) MPV 10.9 9.1 - 12.3 fL [facility] ([place]) RBC 4.12 3.90 - 5.20 M/cumm [facility] (TIKI) MCV 87.6 81.3 - 96.4 fL [facility] ([facility]) MCH 26.7(L) 27.1 - 33.3 pg [facility] ([facility]) MCHC 30.5(L) 32.3 - 35.7 g/dL [facility] ([facility]) RDW CV 14.0 11.1 - 14.9 % [facility] ([facility]) RDW SD 44.8 35.7 - 48.1 fL [facility] ([facility]) NRBC abs 0.00 0.00 - 0.01 K/cumm [facility] ([facility]) Blood 11/12/2024 2:53 PM CDT 11/12/2024 2:56 PM CDT us Susanna Savage MD LAB BLOOD ORDERABLE S Final Result [facility] ([facility]) 1 [facility] [place] [address] * (ABNORMAL) Comprehensive metabolic panel (11/12/2024 2:53 PM CDT) Sodium 137 135 - 145 mmol/L Potassium, pl 4.0 3.3 - 4.9 mmol/L [facility] ([facility]) Chloride 102 97 - 110 mmol/L [facility] ([facility]) CO2 21(L) 22 - 32 mmol/L [facility] ([facility]) Anion gap 13 2 - 15 mmol/L [facility] ([facility]) BUN 17 6 - 25 mg/dL [facility] ([facility]) Creatinine 1.66(H) 0.60 - 1.10 mg/dL [facility] ([facility]) Glucose 132 70 - 199 mg/dL [facility] ([facility]) Comment: Interpretive Data Fasting glucose >/= 126 mg/dl is diagnostic for diabetes. Fasting is defined as no caloric intake for at least 8 hours. Fasting glucose between 100 mg/dl to 125 mg/dl is diagnostic of prediabetes. In a patient with classic symptoms of hyperglycemia or hyperglycemic crisis, a random glucose >/= 200 mg/dl is diagnostic for diabetes. In the absence of unequivocal hyperglycemia, results should be confirmed by repeat testing. The classification and Diagnosis of Diabetes Diabetes Care 2021; 46: S19-S40. Current interpretive data was last revised 2022. Calcium 8.7 8.5 - 10.3 mg/dL [facility] ([facility]) Bilirubin, total 0.5 0.1 - 1.2 mg/dL [facility] ([facility]) Protein, pl 8.1 6.5 - 8.5 g/dL [facility] ([facility]) Albumin 3.3(L) 3.5 - 5.0 g/dL [facility] ([facility]) Alk phos 109 40 - 130 Units/L [facility] ([facility]) ALT 10 7 - 45 Units/L [facility] ([facility]) AST 12 10 - 45 Units/L [facility] ([facility]) Blood 11/12/2024 2:53 PM CDT 11/12/2024 2:56 PM CDT Susanna Savage MD LAB BLOOD ORDERABLE S Final Result Performing Organization Address City/[facility] Co de Phone Number [facility] (TIKI) 1 [facility] [place] [address] * ECG 12 lead (11/12/2024 2:49 PM CDT) 11/12/2024 2:49 PM CDT Narrative [facility] - 11/13/2024 8:06 PM CDT Vent Rate: 123 bpm RR Interval: 485 msec SC Interval: 0 msec QRS Duration: 100 msec QT Interval: 312 msec QTC Interval: 385 msec P-R-T [place]: [address] - -46 - 94 degrees IMPRESSION: Baseline artifact, probable ATRIAL FIBRILLATION WITH RAPID VENTRICULAR RESPONSE PATTERN CONSISTENT WITH PULMONARY DISEASE LEFT ANTERIOR FASCICULAR BLOCK [QRS AXIS <= -45, QR IN I, RS IN II] NONSPECIFIC ST \T\ T-WAVE ABNORMALITY ABNORMAL ECG Recommend repeat EKG with stable baseline Electronically Signed By: Ilan Copeland MD Susanna Savage MD ECG ORDERABLES Fin al Result Performing Organization Address [facility] Co de Phone Number [facility] [employer]ostream [facility] * DIAGNOSTIC MAMMOGRAM BILATERAL W CATINA (06/20/2021 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) Anatomical Region Laterality Modality Breast Bilateral Mammography 06/20/2021 10:3 3 AM PACKAGE DRIER Impressions 06/20/2021 10:33 AM PACKAGE DRIER 1. Post biopsy changes in the right breast at the 11 o'clock position. 2. Probably benign grouped round calcifications along the biopsy site are similar in morphology when compared to 01/31/2021. Stable probably benign right breast circumscribed mass at the 12 o'clock position. Recommend follow-up with right breast mammogram with possible ultrasound in 6 months. 3. Stable probably benign focal asymmetry within the left breast at the 4 to 5 o'clock position. Recommend follow-up with left breast mammogram with possible ultrasound in 6 months. BI-RADS: 3 - Probably benign Findings and recommendations were discussed with the patient at the time of the exam. Electronically signed by: Edwin Starks M.D. Narrative 06/20/2021 10:33 AM PACKAGE DRIER EXAMINATION: DIAGNOSTIC MAMMOGRAM BILATERAL W CATINA ORDERING HEALTHCARE PROVIDER: BRIAN CRENSHAW HISTORY: Bilateral breast diagnostic mammography. COMPARISON: 01/31/2021, 10/26/2020, and 09/22/2020 TECHNIQUE: CC and MLO views of the Bilateral breasts were obtained with digital technique using breast tomosynthesis with C view. Computer aided detection was utilized. FINDINGS: There is scattered fibroglandular tissue There is a right breast biopsy clip at the 11 o'clock position 7 cm from the nipple. There are grouped round calcifications along the biopsy site similar in morphology when compared to 01/31/2021. Stable probably benign right breast circumscribed mass at the 12 o'clock position and stable probably benign focal asymmetry within the left breast at the 4 to 5 o'clock position. There are no suspicious masses, calcifications, or architectural distortion. us Brian Crenshaw MD IMG MAMMO PROCEDURES Ameena l Result * Dexa Axial Skeleton Bone Density 1 Or 2 Site (09/22/2020 11:06 AM CDT) Anatomical Region Laterality Modality Body N/A Other 09/22/2020 1:10 PM CDT Narrative 09/22/2020 1:11 PM CDT EXAM DESCRIPTION: DEXA AXIAL SKELETON BONE DENSITY 1 OR MORE SITES REASON FOR STUDY: Post-menopausal female, screening for osteoporosis. Doll Repairer/Model: Anergis (S/N [id number]) CLINICAL INFORMATION: Current height: 69 inches Maximum [...] as the fracture risk may be overestimated. REFERENCE: Bone mineral density: Normal (T-score above or = -1.0) Low bone mass (T-score between -1.0 and -2.5) replaces the previously used term osteopenia Osteoporosis (T-score = or below -2.5) Medical evaluation for secondary causes of low bone mineral density may be appropriate. FRAX is a World Health Organization validated fracture risk assessment tool that calculates a person's 10 year probability of a major osteoporosis related fracture and hip fracture. According to the National Osteoporosis Foundation guidelines, postmenopausal [...] by Paco Herring M.D. AB: Report ID: [id number] Reading Location: [id number] Procedure Note Paco Herring MD - 09/22/2020 EXAM DESCRIPTION: DEXA AXIAL SKELETON BONE DENSITY 1 OR MORE SITES REASON FOR STUDY: Post-menopausal female, screening for osteoporosis. Doll Repairer/Model: Anergis (S/N [id number]) CLINICAL INFORMATION: Current height: 69 inches Maximum [...] by Paco Herring M.D. AB: Report ID: [id number] Reading Location: [place] [address] us Brian Crenshaw MD IMG DXA PROCEDURES Final Result * (ABNORMAL) Stool DNA - Cologuard (09/11/2020 9:20 AM CDT) Stool DNA - Cologuard Positive (A) Not Applicable [facility] (IA #:[id number]) Comment: It is recommended that a positive [...] both Cologuard and colonoscopy. (Table 3, Lalo Ni. et al, N Engl J Med 2014;370(14):2085-8595.) The normal value (reference range) for this assay is negative. TEST TYPE: Composite algorithmic analysis of stool DNA-biomarkers with hemoglobin immunoassay. Quantitative values of individual biomarkers are not reportable [...] interval of every 3 years by the [place] Cancer Society and U.S. Multi-Society Task Force. [...] can be accessed at the following location: [email or web address].PowerSmart/results. Additional description of the Cologuard test process, warnings and precautions can be found at [email or web address].com. Rx only. Stool 09/11/2020 9:20 AM CDT 09/12/2020 12:31 PM CDT Brian Crenshaw MD LAB BODY FLUIDS AND STOOL S ORDERABLES Final Result Performing Organization Address City/[facility] Co de Phone Number [facility] (CLIA #:[id number]) [place] [address] * Hepatitis C antibody (08/22/2020 11:01 AM CDT) Hep C Ab Nonreactive Nonreactive [facility] Comment: Interpretive Data Nonreactive: Antibodies to HCV not detected. Does NOT exclude the possibility of recent exposure to HCV. Equivocal: Equivocal for HCV antibodies. Supplemental molecular testing will be automatically performed to determine infection status in accordance with current CDC screening recommendations. Reactive: Positive for HCV antibodies. This may represent current or past HCV infection. Supplemental molecular testing will be automatically performed to determine current infection status in accordance with current CDC screening recommendations. Interpretive data was last revised on 2019. Blood specimen (specimen) 08/22/2020 11:01 AM CDT 08/22/2020 5:43 PM CDT Brian Crenshaw MD LAB MICROBIOLOGY - GENERA L ORDERABLES Final Result [facility] [address] Department [place] [address] from Last 3 Months or Most Recently Relevant to Health Maintenance Insurance [place] CHO[place] [facility] MEDICARE [facility] MEDICARE ADVANTAGE [facility] Address: [address] [address] [place] [address] [place] [address] [employer] MEDICARE [facility] MEDICARE ADVANTAGE [facility] Address: [address] [address] [place] [address] [employer] [facility] MEDICARE ADVANTAGE Advance Directives For more information, please contact: [phone] Documents on File Type Date Recorded Patient Inspector Balance Bridge Expl anation ADVANCE DIRECTIVE 09/03/2024 6:16 PM POWER OF GIS MAPPING TECHNICIAN-MEDICAL ADVANCE DIRECTIVE 08/26/2024 11:08 AM Familia r of Staff Antisubmarine Officer-Medical Advance Directives and Living Will 08/27/2024 10:50 PM * Full Code (Latest Code Status on File) Date Activated Date Inactivated Comments 11/12/2024 4:41 PM 11/15/2024 10:00 PM * Full Code Date Activated Date Inactivated Comments 08/27/2024 9:09 PM 08/31/2024 5:21 PM * Full Code Date Activated Date Inactivated Comments 08/17/2024 9:56 PM 08/25/2024 5:14 PM * Full Code Date Activated Date Inactivated Comments 07/06/2024 12:34 PM 07/12/2024 8:03 PM * Full Code Date Activated Date Inactivated Comments 03/06/2020 10:48 PM 03/12/2020 10:12 PM Healthcare Agents on File Name Relationship Healthcare Agent Relationshi p Communication Trever Dominguez Health Care Agent Care Teams Tooth Inspector Relationship Specialty Start Date End Date Brian Crenshaw MD [address] [place] [address] PCP - General Family Medicine 08/22/20 [place] [address] [place] [address] Consulting Physician Pulmonary Disease 05/09/19 Bean Paz MD [address] [place] [address] Referring Physician Internal Medicine 11/22/19 Berry Gabriel MD [address] [facility] [address] [place] [address] Surgeon Orthopedic Surgery 01/29/20
--- OUTSIDE RECORDS SUMMARY | 2025-01-24 19:09 | XMS_ITS | Encounter Summary ---
Author Organization [facility] Healthcare Address [address] [place] [address] Care Team Providers Care Foam Tank Laminator Name Role Phone Alexander Bruno MD Unavailable Bean Paz MD Unavailable Berry Gabriel MD Unavailable Brian Barbour MD Primary Care Provider [phone] Reason for Visit * Reason Onset Date Comments Appointment Request 01/11/2025 Encounter Details Date Type Department Care Team (Late st Contact Info) Description 01/11/2025 Telephone Family Physicians [address] [address] Brian Barbour MD [address] [place] [address] Appointment Request Social History Tobacco Use Types [...] materials from doctor or pharmacy Never 11/22/2024 [facility] Utilities Answer Date Recorded In the past [...] often do you attend chur ch or congregation services? 1 to 4 times per year 11/15/2024 Do you belong to any clubs o r organizations such as rastafari groups, unions, fraternal or athletic groups, or [...] any time in the past 12 m ont, were you homeless or living in a mcfp (including now)? 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 TOY ELECTRIC TRAIN REPAIRER warm transferred to backline per message below. Does message need to be routed? No * Telephone Encounter - Linda Castrejon - 01/11/2025 8:30 AM CDT Called patient, she will have to check with granddaughter and let me know. Please warm transfer to the office, she has to have a Friday/ * Telephone Encounter - Ventura Anderson - 01/11/2025 8:09 AM CDT Appointment Request What visit type does the patient need? Visit Type: Preventative What is the reason for the visit? Preventative Exam What is the reason we were unable to schedule the appointment? Current appointment availability didnot meet patient's need. No appts listed for Provider Meaghan Desai If applicable, were all members of the patient's PCP care team offered (e.g., nurse practioner(s), physician histology assistant(s)) ? No Additional Comments: Patient requesting call back to discuss new appt Does message need to be routed? Yes-Action Needed documented in this encounter Plan of Treatment Not on file documented as of this encounter Visit Diagnoses Not on filedocumented in this encounter Care Teams Foam Tank Laminator Relationship Specialty Start Date End Date Brian Barbour MD [address] [place] [address] PCP - General Family Medicine 08/22/20 [place] [address] [address] [place] [address] Consulting Physician Pulmonary Disease 05/09/19 Bean Paz MD [address] [place] [address] Referring Physician Internal Medicine 11/22/19 Berry Gabriel MD [address] [place] [address] Surgeon Orthopedic Surgery 01/29/20 documented as of this encounter
--- OUTSIDE RECORDS SUMMARY | 2025-01-24 19:09 | XMS_ITS | Clinical Summary ---
Author Organization [facility] Address [address] [place] [address] Care Team Providers Care Upholsterer Inside Name Role Phone Bean Paz MD Primary Care Provider [phone] Allergies No known active allergies Medications acetaminophen [...] 109 01/20/2020 9:00 PM CDT Temperature 36.6 C (97.8 F) 01/20/2020 2:59 PM CDT Respiratory Rate 18 01/20/2020 2:59 PM CDT Oxygen Saturation 94% 01/20/2020 9:00 PM CDT Inhaled Oxygen Concentration - - Weight 158.8 kg (350 lb) 01/20/2020 2:59 PM CDT Height 175.3 cm (5' 9) 01/20/2020 2:59 PM CDT Body Mass Index 51.69 01/20/2020 2:59 PM CDT Plan of Treatment Health Maintenance Due Date Last Done Comments DTAP/TDAP/TD VACCINES (1 - Tdap) 1974 PNEUMOCOCCAL VACCINE 50+ YEA RS (1 of 2 - PCV) 1974 BREAST CANCER SCREENING 1995 COLORECTAL SCREENING 2000 Colorectal Cancer Screening 2000 FIT-DNA Q 3 years 2000 FIT/FOBT Q 1 year 2000 Flex Sig/CT Colonography Q 5 years 2000 ZOSTER VACCINE (1 of 2) 2005 RSV VACCINE (60+ or ) (1 - Risk 60-74 years 1-dose series) 2015 OSTEOPOROSIS SCREENING 2020 INFLUENZA VACCINE (#1) 2024 03/12/2020, 2018 Insurance MEDICAID [place] Advance Directives For more information, please contact: [phone] * Full Code (Latest Code Status on File) Date Activated Date Inactivated Comments 10/23/2017 5:02 PM 10/29/2017 1:22 PM Care Teams Upholsterer Inside Relationship Specialty Start Date End Date Bean Paz MD PCP - General Internal Medicine 10/14/17
--- OUTSIDE RECORDS SUMMARY | 2025-01-24 19:09 | XMS_ITS | Encounter Summary ---
Author Organization [facility] Healthcare Address [address] [place] [address] Care Team Providers Care Credit Operations Processor Name Role Phone DamionAlexander craft MD Unavailable Bean Paz MD Unavailable Berry Gabriel MD Unavailable [phone] Brian Barbour MD Primary Care Provider [phone] Airam Dey CMA Unavailable [phone] Jose Norwood MA Unavailable [phone] Adia Sanchez RN Unavailable Alisia Gonzalez RN Unavailable Reason for Visit * Reason Onset Date Comments Scheduling Appointments 09/21/2020 no answe r for dexa Encounter Details Date Type Department Care Team (Late st Contact Info) Description 09/21/2020 Telephone [facility] [address] [place] [address] Noemy Traylor, RT Scheduling Appointments (no answer [...] on file 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 GERRI Joya. 09/27/17 Positive MRSA Nasal swab identified at [facility]. 05/04/2019 05/04/2019 12/27/2020 5:00 AM C DT COVID: Suspected 07/06/2024 07/06/2024 07/06/2024 11:51 AM BOOK AGENT COVID: Suspected 08/17/2024 08/17/2024 08/17/2024 8:54 PM CDT Coronavirus, droplet Comment:Patient is asymptomatic and Isolation precautions are only for duration of illness. Per Attending provider, Patient is ok to remove isolation. Magan TALLEY 08/18/2024 08/18/2024 08/23/2024 1:48 PM CDT COVID: Suspected 11/12/2024 11/12/2024 11/12/2024 3:57 PM CDT documented as of this encounter Care Teams Credit Operations Processor Relationship Specialty Start Date End Date Brian Barbour MD [address] [place] [address] PCP - General Family Medicine 08/22/20 [place] [address] [address] [facility] [address] [place] [address] Consulting Physician Pulmonary Disease 05/09/19 Bean Paz MD [address] [place] [address] Referring Physician Internal Medicine 11/22/19 Berry Gabriel MD [address] [facility] [address] [place] [address] Surgeon Orthopedic Surgery 01/29/20 Airam Dey CMA [address] [place] [address] [address] [place] [address] ACO Care Pipe Jeeper 09/19/21 09/19/21 Jose Norwood MA [address] [place] [address] [address] [place] [address] ACO Care Pipe Jeeper 07/06/24 07/06/24 Adia Sancehz RN [address] [place] [address] [address] [place] [address] Washing Machine Loader And Puller 07/13/24 08/12/24 Alisia Gonzalez, FABRICIO [address] [place] [address] [address] [place] [address] Washing Machine Loader And Puller 08/26/24 09/12/24 documented as of this encounter
--- OUTSIDE RECORDS SUMMARY | 2025-01-24 19:09 | XMS_ITS | Clinical Summary ---
Author Organization [facility] Address [address] [place] [address] Phone Care Team Providers Care Data Entry Name Role Phone Brian Barbour MD Primary Care Provider [phone] Allergies Active Allergy Reactions Criticality Noted Date [...] Moderate or more severe pain. 12 Tablet 2 Active Additional Information Patient not taking.Reported on [...] Mrna, Lnp-s, Pf, 30 Mcg/0.3 Ml Dose (P fizer) 08/05/2020,07/13/2020 Influenza Vaccine, Quadrivalent, PF 03/12/2020,1 Family [...] 80 08/18/2023 8:51 AM CDT Temperature 35.8 C (96.4 F) 08/18/2023 8:51 AM CDT Respiratory Rate 16 08/18/2023 8:51 AM CDT Oxygen Saturation 99% 08/18/2023 8:51 AM CDT Inhaled Oxygen Concentration - - Weight 133.8 kg (295 lb) 08/11/2023 9:00 AM CDT Height 175.3 cm (5' 9) 08/11/2023 9:00 AM CDT Body Mass Index 43.56 08/11/2023 9:00 AM CDT Plan of Treatment Health Maintenance Due Date Last Done Comments Hepatitis C Virus (HCV) Screening 1955 Cologuard 2000 Colonoscopy 2000 Colorectal Cancer Screening 2000 Immunochemical Fecal Occult Blood 2000 Zoster Immunization (1 of 2) 2005 Respiratory Syncytial Virus (RSV) Immunization (Adult) (1 - Risk 60-74 years 1-dose series) 2015 Mammogram 06/20/2022 06/20/2021, 10/10, 09/22/2020 DEXA Bone Density 09/22/2022 09/22/2020 Influenza Immunization (#1) 2025 12/0 09/2021, 03/23/2021, 03/12/2020, Additional history exists SARS-COV-2 Immunization (2024- season) 2025 08/05/2020, 07/13/2020 DTaP/Tdap/Td Immunization Discontinued 08/22/2020 TdaP Immunization Completed 08/22/2020 Pneumococcal Immunization (50+ years) Completed 12/27/2021, 08/22/2020 Pneumococcal Immunization Combined Discontinued 12/27/2021, 08/22/2020 Hepatitis B Immunization Aged Out No longer eligible based on patient's age to complete this topic Human Papillomavirus (HPV) Immunization Aged Out No longer eligible based on patient's age to complete this topic Meningococcal Immunization (ACWY) Aged Out No longer eligible based on patient's age to complete this topic Rotavirus Immunization Aged Out No lo nger eligible based on patient's age to complete this topic Medical Devices Implanted Type Area Strategic Communications Manager Device Identifier Shelf Expiration Date Model / Serial / Lot Technis 1-Piece Iol With Simplicity Delivery System Implanted:Qty: 1 on 08/18/2023 by Janie Wolf MD PhD at [facility] Right: Eye 12/08/2023 [id number] / [id number] / 12/08/23 Additional Health Concerns Infection Onset [...] measures to stabilize the patient. Care Teams Data Entry Relationship Specialty Start Date End Date Brian Barbour MD [address] [place] [address] PCP - General Family Medicine 03/18/22
--- OUTSIDE RECORDS SUMMARY | 2025-01-24 19:09 | XMS_ITS | Encounter Summary ---
Author Organization [facility] Healthcare Address [address] [place] [address] Care Team Providers Care Anesthesiology Medical Doctor Name Role Phone DamionAlexander craft MD Unavailable Bean Paz MD Unavailable Berry Gabriel MD Unavailable [phone] Brian Barbour MD Primary Care Provider [phone] Airam Dey CMA Unavailable [phone] Jose Norwood MA Unavailable [phone] Adia Sanchez RN Unavailable Alisia Gonzalez RN Unavailable Reason for Visit * Reason Onset Date Comments Scheduling Appointments 10/25/2020 Confirmi ng mammogram appt Encounter Details Date Type Department Care Team (Late st Contact Info) Description 10/25/2020 Telephone [facility] Imaging Center [address] [place] [address] [address] Scheduling Appointments (Confirming mammogram appt) Social History Tobacco Use Types Packs/Day Years Used Date Smoking Tobacco: Never Smokeless Tobacco: Never Alcohol Use Standard Drinks/Week Comments Never 0 (1 standard drink = 0.6 oz pur e alcohol) AUDIT-C Answer Date Recorded Q1: How often do you have a drink containing alc ohol? 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 GERRI Joya. 09/27/17 Positive MRSA Nasal swab identified at [facility]. 05/04/2019 05/04/2019 12/27/2020 5:00 AM C DT COVID: Suspected 07/06/2024 07/06/2024 07/06/2024 11:51 AM SENIOR MAJOR GIFTS OFFICER COVID: Suspected 08/17/2024 08/17/2024 08/17/2024 8:54 PM CDT Coronavirus, droplet Comment:Patient is asymptomatic and Isolation precautions are only for duration of illness. Per Attending provider, Patient is ok to remove isolation. Magan TALLEY 08/18/2024 08/18/2024 08/23/2024 1:48 PM CDT COVID: Suspected 11/12/2024 11/12/2024 11/12/2024 3:57 PM CDT documented as of this encounter Care Teams Anesthesiology Medical Doctor Relationship Specialty Start Date End Date Brian Barbour MD [address] [place] [address] PCP - General Family Medicine 08/22/20 [place] [address] [place] [address] Consulting Physician Pulmonary Disease 05/09/19 Bean Paz MD [address] [place] [address] Referring Physician Internal Medicine 11/22/19 Berry Gabriel MD [address] [place] [address] Surgeon Orthopedic Surgery 01/29/20 Airam Dey CMA [address] [place] [address] [address] [place] [address] ACO Care Public Policy Manager 09/19/21 09/19/21 Jose Norwood MA [address] [place] [address] [address] [place] [address] ACO Care Public Policy Manager 07/06/24 07/06/24 Adia Sanchez RN [address] [place] [address] [address] [place] [address] Mothers Helper 07/13/24 08/12/24 Alisia Gonzalez RN [address] [place] [address] [address] [place] [address] Mothers Helper 08/26/24 09/12/24 documented as of this encounter
--- OUTSIDE RECORDS SUMMARY | 2025-01-24 19:09 | XMS_ITS | Encounter Summary ---
Author Organization [facility] Address [address] [place] [address] Care Team Providers Care Absorption Operator Name Role Phone Bean Paz MD Primary Care Provider [phone] Reason for Visit * Reason Onset Date Comments Medication Refill 02/26/2020 Encounter Details Date Type Department Care Team (Late st Contact Info) Description 02/26/2020 Refill [facility] Primary Care - [address] [place] [address] Bean Paz MD [address] [facility] [address] [place] [address] Atrial fibrillation with RVR (CMS/HCC) [...] documented as of this encounter Care Teams Absorption Operator Relationship Specialty Start Date End Date Bean Paz MD PCP - General Internal Medicine 10/14/17 documented as of this encounter
--- OUTSIDE RECORDS SUMMARY | 2025-01-24 19:09 | XMS_ITS | Encounter Summary ---
Author Organization [facility] Healthcare Address [address] [place] [address] Care Team Providers Care Grooming Assistant Name Role Phone DamionAlexander craft MD Unavailable [phone] Bean Paz MD Unavailable [phone] Berry Gabriel MD Unavailable Brian Barbour MD Primary Care Provider [phone] Airam Dey CMA Unavailable [phone] Jose Norwood MA Unavailable [phone] Adia Sanchez RN Unavailable Alisia Gonzalez RN Unavailable [phone] Encounter Details Date Type Department Care Team (Late st Contact Info) Description 12/22/2020 Telephone [facility] Imaging Center [address] [place] [id number] Erica Covington, RN Social History Tobacco Use [...] on file 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 Per Attending provider, Patient is ok to remove isolation. Magan TALLEY 08/18/2024 08/18/2024 08/23/2024 1:48 PM CDT COVID: Suspected 11/12/2024 11/12/2024 11/12/2024 3:57 PM CDT documented as of this encounter Care Teams Grooming Assistant Relationship Specialty Start Date End Date Brian Barbour MD [address] [place] [address] PCP - General Family Medicine 08/22/20 [place] [address] [place] [address] Consulting Physician Pulmonary Disease 05/09/19 Bean Paz MD [address] [place] [address] Referring Physician Internal Medicine 11/22/19 Berry Gabriel MD [address] [facility] [address] [place] [address] Surgeon Orthopedic Surgery 01/29/20 Airam Dey CMA [address] [place] [address] [address] [place] [address] ACO Care Dragline Mechanic 09/19/21 09/19/21 Jose Norwood MA [address] [place] [address] [address] [place] [address] ACO Care Dragline Mechanic 07/06/24 07/06/24 Adia Sanchez RN [address] [place] [address] [address] [place] [address] Shorer 07/13/24 08/12/24 Alisia Gonzalez RN [address] [place] [address] [address] [place] [address] Shorer 08/26/24 09/12/24 documented as of this encounter
== END 2025-01-24 18:27 | disposition short-term general hospital (02) ==
PROVIDERS: Emergency Provider Nurse Practitioner Family; PCP Hospitalist
DX: L03.115 Cellulitis of right lower limb (principal); I10 Essential (primary) hypertension; I48.91 Unspecified atrial fibrillation; I89.0 Lymphedema, not elsewhere classified; Z79.01 Long term (current) use of anticoagulants
CPT/HCPCS: 99212; A9270; G0463